=== PATIENT | female | born 1945 | race Caucasian/White ===

== ENCOUNTER → 2016-08-07 | Outpatient (CLI) | payer OTHER ==
[~2016-08-07] MED LIST: /LANS30GR; /LANS30GR OR; /WARF25TA OR; /WARF5TA OR; ACTI300C; ACTI300C OR; ALEV1TAB PO; ALEV220C2 PO; ALLE25CA OR; ALPR0.25 PO; AMBI5TAB; AMLO5TAB2 PO; ASPI1TAB PO; ASPI325T; ASPI81TA45 OR; ATOR1TAB21 PO; ATOR40TA PO; AVEL1TAB PO; BENZ100C5 PO; BUDE150T PO; BUPR300T34 PO; CALC600T7 PO; CALCCHW12 OR; CODE30TA PO; CODEINE PO; CYMB1CAP4 PO; CYMB1CAP5 PO; CYMB60CA3 PO; FLORAGEN PO; GABA300C2 PO; GLUC500T3 OR; IPRASOL4 NEB; LEVA500T; LIDO5DIS TOP; LIDOCAINE TOP; LIPI20TA OR; LIPI20TA PO; LISI10TA4 OR; LYRI75CA; LYRI75CA OR; MIRALEX OR; NAPR250T2 PO; NAPR250T45 PO; NYST100024 TOP; OXYC10TA56 OR; OXYC5CAP4; PERC5TAB8 OR; PREG50CA; PREG50CA OR; PREV30CA11 PO; PROVASTATIN; SLEE1TAB PO; SOMA350T OR; TRAM50TA2; TRAM50TA2 OR; TRAM50TA2 PO; URSO300C3 PO; VIT D 2000 PO; VITA200038 PO; VITA500T PO; VITAMIN D50000 UNT OR; XANA0.25 PO; XANA0.5T OR; ZANAX PO; ZITHTAB PO
== END ==
LOC: M PAIN 14:20
PROVIDERS: ATTEND Anesthesiology
DX: Z53.29 Procedure and treatment not carried out because of patient's decision for other reasons (principal)

== ENCOUNTER → 2016-08-29 | Outpatient (CLI) | payer OTHER ==
--- NOTE | 2016-08-31 23:49 | ECWPNPC ---
PATIENT NAME: ADALBERTO BOND : 1945 GENDER: FEMALE VISIT DATE: 08/29/2016 DISCHARGE DATE: 08/29/16 1331 VISIT LOCKED DATE TIME: PHYSICIAN: CATALINA DAN RESOURCE: CATALINA DAN REASON FOR APPOINTMENT 1. BACK HISTORY OF PRESENT ILLNESS HISTORY OF PRESENT ILLNESS: PAIN THE PATIENT DESCRIBES THE PAIN... FALL RISK SCREENING: SCREENING :NO FALLS IN THE PAST YEAR GENERAL: 71 YEAR OLD FEMALE PATIENT WITH HISTORY OF CHRONIC BACK PAIN. PATIENT DESCRIBES THE PAIN ACHING, BURNING, SHARP, STABBING, TENDER, THROBBING, SORE, AND HAVING IT ALL THE TIME WITH A PAIN SCORE OF 5/10 ON TODAY'S VISIT. 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 PATIENT WAS TAKING THE LUGGAGE OUT OF THE TRUNK OF A VEHICLE WHEN SHE HEARD A POP AND INJURED HER BACK. PATIENT REPORTS THAT SHE HAS NOT HAD ANY SURGERIES ON HER BACK. PATIENT STATES THAT SHE HAS TRIED PHYSICAL THERAPY IN THE PAST AND THE PAIN WAS WORST WHEN SHE WAS TAKING PT. PATIENT REPORTS CURRENT MEDICATION REGIMEN HELP HER TO SLEEP AT NIGHT. PAIN IS INCREASED WITH ANY TYPE OF ACTIVITY INCLUDING STANDING, WALKING, BENDING, AND LIFTING OBJECTS. PATIENT DENIES UNEXPLAINABLE WEIGHT LOSS, FEVER, CHILLS, NEW CHANGES ON HER URINARY OR BOWEL CONTROL. CURRENT MEDICATIONS TAKING CYMBALTA 60 MG _ 1 TABLET PO ONCE DAILY TAKING CODEINE SULFATE 15 MG TABLET 1 TABLET NEEDED ORALLY CODE D CHRONIC PAIN EVERY 6 HRS PRN FOR PAIN MDD2 TAKING TIZANIDINE HCL 2 MG TABLET 1 TO 2 TABLET NEEDED ORALLY BEFORE BEDTIME FOR SPASMS AND PAIN TAKING PREVACID 30 MG CAPSULE DELAYED RELEASE 1 CAPSULE ORALLY ONCE A DAY TAKING URSODIOL 300 MG CAPSULE 1 TAB(S) ORALLY BID TAKING ALBUTEROL-IPRATROPIUM 2.5-0.5 MG/3ML SOLUTION 3 ML NEBULIZER FOUR TIMES A DAY NEEDED TAKING ALEVE PM 220-25 MG TABLET 1 TAB(S) ORALLY QHS NEEDED TAKING ALPRAZOLAM 0.25 MG TABLET 1 TABLET ORALLY TWICE DAILY NEEDED TAKING ASPIR-81 81 MG TABLET DELAYED RELEASE 1 TABLET ORALLY ONCE A DAY TAKING ATORVASTATIN CALCIUM 20 MG TABLET 1 TABLET ORALLY 3 TIMES A WEEK TAKING BUPROPION HCL (XL) 300 MG TABLET EXTENDED RELEASE 24 HOUR 1 TABLET IN THE MORNING ORALLY ONCE A DAY TAKING CALCIUM + D 600-200 MG-UNIT TABLET 1 TABLET WITH FOOD ORALLY BID TAKING NYSTATIN POWDER POWDER NEEDED TAKING VITAMIN B-12 1000 MCG 1 GUMMY BEAR ORALLY ONCE A DAY TAKING NORVASC 5 MG TABLET 1 TABLET ORALLY ONCE A DAY DISCONTINUED VALIUM 10 MG TABLET 1 ORALLY 1TAB 1HR PRE PROC. MDD1 MEDICATION LIST REVIEWED AND RECONCILED WITH THE PATIENT PAST MEDICAL HISTORY PRIMARY BILIARY CIRRHOSIS STROKE CORONARY ARTERY DISEASE HIGH BLOOD PRESSURE ALLERGIES PENICILLIN (FOR ALLERGIES USE ONLY): ANAPHYLAXIS VIOXX (FOR ALLERGY USE ONLY): ANGIOEDEMA LYRIC INHIBITOR (FOR ALLERGIES USE ONLY): ANAPHYLAXIS SURGICAL HISTORY RIGHT KNEE REPLACEMENT 09/2009 LEFT KNEE REPLACEMENT 01/2010 FAMILY HISTORY NO FAMILY HISTORY DOCUMENTED. SOCIAL HISTORY GENERAL: PAIN CLINIC PFS, CLERGY, PUBLIC HEALTH REFERRALS CLERGY REFERRAL NEEDED?NO WAS THE PROVIDER NOTIFIED OF ANY PERTINENT INFO?NO PFS REFERRAL NEEDED?NO PUBLIC HEALTH REFERRAL NEEDED?NO PATIENT: ____. HOSPITALIZATION/MAJOR DIAGNOSTIC PROCEDURE PNEUMONIA 06/2015 REVIEW OF SYSTEMS CONSTITUTIONAL: ANY CHANGE IN YOUR MEDICAL CONDITION? NO . CHILLS NO . FEVER NO . INFECTION: DO YOU HAVE NEW INFECTIONS? YES, HAD A RESPIRATORY INFECTION RECENTLY, JUST FINISHED 10M DAYS OF ANTIBIOTICS. . DO YOU HAVE HISTORY OF MRSA? NO . MUSCULOSKELETAL: ANY NEW PATTERNS OF PAIN OR NUMBNESS? NO . GASTROENTEROLOGY: ANY NEW CHANGE IN BOWEL CONTROL? NO . GENITOURINARY: ANY NEW CHANGE IN BLADDER CONTROL? NO . IS THERE A CHANCE YOU COULD BE ? NO . HEMATOLOGY/LYMPH: DO YOU TAKE ANY BLOOD THINNERS? (FOR EXAMPLE- COUMADIN, PLAVIX, AGGRENOX, PLATEL, PRADAXA, OR XARELTO) NO . WHEN WAS YOUR LAST DOSE? DATE: TIME: . NEUROLOGY: HAVE YOU FALLEN IN THE PAST 6 MONTHS? NO . ANY NEW EXTREMITY NUMBNESS OR WEAKNESS? NO . CARDIOLOGY: DO YOU HAVE A PACEMAKER OR DEFIBRILLATOR? NO . RESPIRATORY: HAVE YOU BEEN SICK IN THE PAST WEEK? NO . FEVER NO . FLU LIKE SYMPTOMS? NO . COUGH NO . INTEGUMENTARY: DO YOU HAVE ANY RASHES OR OPEN SORES? NO . ALLERGIC/IMMUNO: ARE YOU ALLERGIC TO SHELLFISH OR IV DYE? NO . ANY NEW ALLERGIES? NO . PSYCHIATRIC: DO YOU HAVE THOUGHTS OF HURTING YOURSELF OR SOMEONE ELSE? NO . ARE YOU ABUSED, NEGLECTED, OR IN AN UNSAFE ENVIRONMENT? NO . ENDOCRINOLOGY: ARE YOU DIABETIC? NO . OTHER: DO YOU NEED ANY PRESCRIPTIONS? NO . IF YES, PLEASE LIST: ____ . ANY NEW PROBLEMS WITH YOUR MEDICATIONS? NO . WHEN DID YOU LAST EAT? ____ . WHEN DID YOU LAST DRINK? ____ . WHAT DID YOU LAST DRINK? ____ . NAME OF PERSON DRIVING YOU HOME? ____ . DO YOU HAVE ANY OTHER QUESTIONS OR CONCERNS NO . REVIEWED BY: PROVIDER: CATALINA DAN MD . VITAL SIGNS WT 194.4 LBS, HT 65 IN, BMI 32.35 INDEX, BP 140/80 MM HG, HR 68 /MIN, RR 68 /MIN, TEMP 98.9 F, OXYGEN SAT % 96%, NA INITIALS SC12:47, REVIEWED BY: CM. EXAMINATION GENERAL: PATIENT IS ALERT O X 3 AND COOPERATIVE. PATIENT AMBULATES WITH A LIMP ON THE RIGHT LEG. PATIENT HAS TENDERNESS IN THE LUMBAR PARASPINAL MUSCLE GROUP ESPECIALLY TOWARDS ON THE RIGHT SIDE. PATIENT'S LEFT LEG IS WEAKER AT FLEXION AND EXTENSION COMPARED TO THE RIGHT LEG. MRI OF THE LUMBAR SPINE DONE ON MRI OF THE LUMBOSACRAL SPINE DONE ON 09/11/2014 SHOWS FACET ARTHROPATHY CHANGES SPINAL STENOSIS, DISC BULGES, AND DISC DEGENERATION. ASSESSMENTS SPONDYLOSIS WITHOUT MYELOPATHY OR RADICULOPATHY, LUMBAR REGION - M47.816 (PRIMARY) SPONDYLOSIS WITHOUT MYELOPATHY OR RADICULOPATHY, LUMBOSACRAL REGION - M47.817 SPINAL STENOSIS, LUMBAR REGION - M48.06 TREATMENT SPONDYLOSIS WITHOUT MYELOPATHY OR RADICULOPATHY, LUMBAR REGION START LIDOCAINE PATCH, 5 %, 2 PATCHES DIRECTED, EXTERNALLY AT BACK, BEFORE BEDTIME, 30 DAY(S), 60, REFILLS 2 NOTES: WE DISCUSSED SEVERAL ISSUES WITH MS. BOND'S PAIN MANAGEMENT CASE. AT THIS TIME THE PATIENT WILL RECEIVE REFILLS OF CYMBALTA, CODEINE, TIZANIDINE, AND PATIENT WILL START ON LIDOCAINE PATCH TODAY. PATIENT IS TAKING CYMBALTA AND USING LIDOCAINE PATCH FOR NEUROPATHIC PAIN, TAKING CODEINE FOR SOMATIC PAIN AND TAKING TIZANIDINE FOR SPASTICITY. PATIENT REPORTS OF USING MEDICATION FOR PAIN MANAGEMENT AND DENIES ABUSING AND ILLEGALLY USING MEDICATIONS. PATIENT TO FOLLOW UP WITH ME IN 10 WEEKS. INSTRUCTIONS WERE GIVEN, QUESTIONS WERE ANSWERED, PATIENT REPORTS UNDERSTANDING AND AGREES WITH THE PLAN. I, ELVIA SCHULZ, DOCUMENTED THE ABOVE INFORMATION ACTING A SCRIBE FOR DR. DAN. I HAVE REVIEWED THE ABOVE DOCUMENT, WRITTEN BY ELVIA SCHULZ SCRIBE AND I VERIFY THAT IT IS ACCURATE. OTHERS REFILL CYMBALTA _, 60 MG, 1 TABLET, PO, ONCE DAILY FOR PAIN, 30 DAY(S), 30, REFILLS 2 REFILL CODEINE SULFATE TABLET, 15 MG, 1 TABLET NEEDED, ORALLY CODE D CHRONIC PAIN, EVERY 6 HRS PRN FOR PAIN MDD2, 90 DAYS, 120, REFILLS 0 REFILL TIZANIDINE HCL TABLET, 2 MG, 1 TO 2 TABLET NEEDED, ORALLY, BEFORE BEDTIME FOR SPASMS AND PAIN, 30 DAY(S), 60, REFILLS 2 PROCEDURES PN WORKMANS' COMP OPINION IN YOUR OPINION, WAS THE INCIDENT THAT THE PATIENT DESCRIBED THE COMPETENT MEDICAL CAUSE OF THIS INJURY/ILLNESS? YES ARE THE PATIENT'S COMPLAINTS CONSISTENT WITH HIS/HER HISTORY OF THE INJURY/ILLNESS? YES IS THE PATIENT'S HISTORY OF THE INJURY/ILLNESS CONSISTENT WITH YOUR OBJECTIVE FINDING? YES WHAT IS THE PERCENTAGE OF TEMPORARY IMPAIRMENT? MODERATE TO MARKED = 66.7% IS THE PATIENT WORKING? NO DOCTOR ON SITE: CATALINA CASAS MD PROCEDURE CODES FA211 ESTABILISHED PATIENT [facility] FACILITY CHARGE G8730 PAIN ASSESS POS TOOL F/U PLAN DOC G8427 DOC MEDS VERIFIED W/PT OR RE DISPOSITION & COMMUNICATION FOLLOW UP 10 WEEKS ELECTRONICALLY SIGNED BY CATALINA DAN MD ON 08/31/2016 AT 09:57 PM EDT DISCLAIMER : THIS IS A VISIT SUMMARY EXTRACTED FROM THE [employer] CHART. IT IS NOT A COPY OF THE [employer] PROGRESS NOTE. MTDD
== END | disposition home or self-care (01) ==
LOC: M PAIN 12:40
PROVIDERS: ATTEND Anesthesiology
DX: Z09 Encounter for follow-up examination after completed treatment for conditions other than malignant neoplasm (principal); G89.29 Other chronic pain; M47.816 Spondylosis without myelopathy or radiculopathy, lumbar region; M47.817 Spondylosis without myelopathy or radiculopathy, lumbosacral region; M48.06 Spinal stenosis, lumbar region; I10 Essential (primary) hypertension; I25.10 Atherosclerotic heart disease of native coronary artery without angina pectoris; K74.3 Primary biliary cirrhosis; Z86.73 Personal history of transient ischemic attack (TIA), and cerebral infarction without residual deficits; Z79.899 Other long term (current) drug therapy; Z79.82 Long term (current) use of aspirin; Z88.0 Allergy status to penicillin; Z88.8 Allergy status to other drugs, medicaments and biological substances

== ENCOUNTER → 2016-11-24 | Outpatient (REF) | payer MEDICARE ==
[2016-11-24 18:49] LABS: IMMUNOGLOBULIN G 1030 MG/DL (681-1648); IMMUNOGLOBULIN M 154 MG/DL (40-230)
[2016-11-26 13:16] LABS: ALBUMIN 3.79 GM/DL (3.29-5.55); ALBUMIN % 54.2 % (55.8-66.1)
== END ==
LOC: M LAB REF 13:22
PROVIDERS: ATTEND Internal Medicine
DX: D47.2 Monoclonal gammopathy (principal)

== ENCOUNTER → 2016-12-26 | Outpatient (CLI) | payer OTHER ==
[~2016-12-26] MED LIST changes: -ATOR40TA PO; +ATOR40TA75 PO; -AVEL1TAB PO; +AVEL1TAB3 PO; -NAPR250T2 PO; +NAPR250T4 PO; -NYST100024 TOP; +NYST1POW9 TOP; +PREV1CAP PO; -PREV30CA11 PO
--- NOTE | 2017-01-13 00:33 | ECWPNPC ---
PATIENT NAME: ADALBERTO BOND : 1945 GENDER: FEMALE VISIT DATE: 12/26/2016 DISCHARGE DATE: 12/26/16 1146 VISIT LOCKED DATE TIME: PHYSICIAN: CATALINA DAN RESOURCE: CATALINA DAN REASON FOR APPOINTMENT 1. W/C BACK HISTORY OF PRESENT ILLNESS HISTORY OF PRESENT ILLNESS: PAIN THE PATIENT DESCRIBES THE PAIN... 71 YEAR OLD FEMALE PATIENT WITH HISTORY OF CHRONIC BACK PAIN. PATIENT DESCRIBES THE PAIN ACHING, BURNING, SHARP, STABBING, TENDER, THROBBING, SORE, AND HAVING IT ALL THE TIME WITH A PAIN SCORE OF 6/10 ON TODAY'S VISIT. PATIENT WAS INJURED IN A WORK RELATED INJURY ON 01/15/2000 WORKING FOR [employer] A [employer] FOR [employer]ING. PATIENT WAS TAKING THE LUGGAGE OUT OF THE TRUNK OF A VEHICLE WHEN SHE HEARD A POP AND INJURED HER BACK. PATIENT REPORTS THAT SHE HAS NOT HAD ANY SURGERIES ON HER BACK. PATIENT STATES THAT SHE HAS TRIED PHYSICAL THERAPY IN THE PAST AND THE PAIN WAS WORST WHEN SHE WAS TAKING PT. PATIENT REPORTS CURRENT MEDICATION REGIMEN HELP HER TO SLEEP AT NIGHT. PAIN IS INCREASED WITH ANY TYPE OF ACTIVITY INCLUDING STANDING, WALKING, BENDING, AND LIFTING OBJECTS. PATIENT DENIES UNEXPLAINABLE WEIGHT LOSS, FEVER, CHILLS, NEW CHANGES ON HER URINARY OR BOWEL CONTROL. FALL RISK SCREENING: SCREENING :NO FALLS IN THE PAST YEAR CURRENT MEDICATIONS TAKING PREVACID 30 MG CAPSULE DELAYED RELEASE 1 CAPSULE ORALLY ONCE A DAY TAKING URSODIOL 300 MG CAPSULE 1 TAB(S) ORALLY BID TAKING ALBUTEROL-IPRATROPIUM 2.5-0.5 MG/3ML SOLUTION 3 ML NEBULIZER FOUR TIMES A DAY NEEDED TAKING ALEVE PM 220-25 MG TABLET 1 TAB(S) ORALLY QHS NEEDED TAKING ALPRAZOLAM 0.25 MG TABLET 1 TABLET ORALLY TWICE DAILY NEEDED TAKING ASPIR-81 81 MG TABLET DELAYED RELEASE 1 TABLET ORALLY ONCE A DAY TAKING ATORVASTATIN CALCIUM 20 MG TABLET 1 TABLET ORALLY 3 TIMES A WEEK TAKING BUPROPION HCL ER (XL) 300 MG TABLET EXTENDED RELEASE 24 HOUR 1 TABLET IN THE MORNING ORALLY ONCE A DAY TAKING CALCIUM + D 600-200 MG-UNIT TABLET 1 TABLET WITH FOOD ORALLY BID TAKING NYSTATIN POWDER POWDER NEEDED TAKING VITAMIN B-12 1000 MCG 1 GUMMY BEAR ORALLY ONCE A DAY TAKING NORVASC 5 MG TABLET 1 TABLET ORALLY ONCE A DAY TAKING CYMBALTA 60 MG _ 1 TABLET PO ONCE DAILY FOR PAIN TAKING CODEINE SULFATE 15 MG TABLET 1 TABLET NEEDED ORALLY CODE D CHRONIC PAIN EVERY 6 HRS PRN FOR PAIN MDD2 TAKING TIZANIDINE HCL 2 MG TABLET 1 TO 2 TABLET NEEDED ORALLY BEFORE BEDTIME FOR SPASMS AND PAIN TAKING LIDOCAINE 5 % PATCH 2 PATCHES DIRECTED EXTERNALLY AT BACK BEFORE BEDTIME MEDICATION LIST REVIEWED AND RECONCILED WITH THE PATIENT PAST MEDICAL HISTORY PRIMARY BILIARY CIRRHOSIS STROKE CORONARY ARTERY DISEASE HIGH BLOOD PRESSURE ALLERGIES PENICILLIN (FOR ALLERGIES USE ONLY): ANAPHYLAXIS VIOXX (FOR ALLERGY USE ONLY): ANGIOEDEMA LYRIC INHIBITOR (FOR ALLERGIES USE ONLY): ANAPHYLAXIS REVIEW OF SYSTEMS REVIEWED BY: PROVIDER: CATALINA DAN MD . CONSTITUTIONAL: ANY CHANGE IN YOUR MEDICAL CONDITION? NO . CHILLS NO . FEVER NO . INFECTION: DO YOU HAVE NEW INFECTIONS? NO . DO YOU HAVE HISTORY OF MRSA? NO . MUSCULOSKELETAL: ANY NEW PATTERNS OF PAIN OR NUMBNESS? NO . GASTROENTEROLOGY: ANY NEW CHANGE IN BOWEL CONTROL? NO . GENITOURINARY: ANY NEW CHANGE IN BLADDER CONTROL? NO . IS THERE A CHANCE YOU COULD BE ? NO . HEMATOLOGY/LYMPH: DO YOU TAKE ANY BLOOD THINNERS? (FOR EXAMPLE- COUMADIN, PLAVIX, AGGRENOX, PLATEL, PRADAXA, OR XARELTO) NO . WHEN WAS YOUR LAST DOSE? DATE: TIME: . NEUROLOGY: HAVE YOU FALLEN IN THE PAST 6 MONTHS? NO . ANY NEW EXTREMITY NUMBNESS OR WEAKNESS? NO . CARDIOLOGY: DO YOU HAVE A PACEMAKER OR DEFIBRILLATOR? NO . RESPIRATORY: HAVE YOU BEEN SICK IN THE PAST WEEK? NO . FEVER NO . FLU LIKE SYMPTOMS? NO . COUGH NO . INTEGUMENTARY: DO YOU HAVE ANY RASHES OR OPEN SORES? NO . ALLERGIC/IMMUNO: ARE YOU ALLERGIC TO SHELLFISH OR IV DYE? NO . ANY NEW ALLERGIES? NO . PSYCHIATRIC: DO YOU HAVE THOUGHTS OF HURTING YOURSELF OR SOMEONE ELSE? NO . ARE YOU ABUSED, NEGLECTED, OR IN AN UNSAFE ENVIRONMENT? NO . ENDOCRINOLOGY: ARE YOU DIABETIC? NO . OTHER: DO YOU NEED ANY PRESCRIPTIONS? YES . IF YES, PLEASE LIST: CODIENE, CYMBALTA, PREVACID . ANY NEW PROBLEMS WITH YOUR MEDICATIONS? NO . WHEN DID YOU LAST EAT? ____ . WHEN DID YOU LAST DRINK? ____ . WHAT DID YOU LAST DRINK? ____ . NAME OF PERSON DRIVING YOU HOME? ____ . DO YOU HAVE ANY OTHER QUESTIONS OR CONCERNS NO . VITAL SIGNS WT 200.4 LBS, HT 65 IN, BMI 33.34 INDEX, BP 161/81 MM HG, HR 75 /MIN, RR 18 /MIN, TEMP 97.9 F, OXYGEN SAT % 95%, NA INITIALS SC 11:38, REVIEWED BY: NL. EXAMINATION : PATIENT IS ALERT O X 3 AND COOPERATIVE. PATIENT AMBULATES WITH A LIMP ON THE RIGHT LEG. PATIENT HAS TENDERNESS IN THE LUMBAR PARASPINAL MUSCLE GROUP ESPECIALLY TOWARDS ON THE RIGHT SIDE. PATIENT'S LEFT LEG IS WEAKER AT FLEXION AND EXTENSION COMPARED TO THE RIGHT LEG. MRI OF THE LUMBAR SPINE DONE ON MRI OF THE LUMBOSACRAL SPINE DONE ON 09/11/2014 SHOWS FACET ARTHROPATHY CHANGES SPINAL STENOSIS, DISC BULGES, AND DISC DEGENERATION. ASSESSMENTS SACROILIITIS, NOT ELSEWHERE CLASSIFIED - M46.1 (PRIMARY) SPONDYLOSIS WITHOUT MYELOPATHY OR RADICULOPATHY, LUMBAR REGION - M47.816 SPONDYLOSIS WITHOUT MYELOPATHY OR RADICULOPATHY, LUMBOSACRAL REGION - M47.817 TREATMENT SACROILIITIS, NOT ELSEWHERE CLASSIFIED NOTES: WE DISCUSSED SEVERAL ISSUES WITH MRS. BOND'S PAIN MANAGEMENT CASE. AT THIS TIME THE PATIENT WILL CONTINUE WITH THE SAME MEDICATION REGIME BEFORE. PATIENT IS USING LIDOCAINE AND CODEINE SULPHATE FOR THE SOMATIC PAIN, CYMBALTA FOR THE NEUROPATHIC PAIN, AND TIZANIDINE FOR THE MUSCLE SPASMS. PATIENT DENIES ABUSE OF ANY MEDICATION, DENIES USE OF ILLEGAL SUBSTANCES, AND STATES SHE IS ONLY USING THE MEDICATION FOR PAIN MANAGEMENT. PATIENT WILL PERFORM A URINE TOXICOLOGY REPORT TODAY. PATIENT BROUGHT ALL HER PAIN MEDICATIONS TO TODAY'S VISIT IN THEIR ORIGINAL BOTTLES. DUE TO THE PAIN IN THE SACROILIAC JOINT AREA I WOULD LIKE TO PROCEED WITH A SACROILIAC JOINT INJECTION. WE DISCUSSED THE RISKS, BENENFITS AND ALTNERATIVES OF THE INJECTION AND THE PATIENT WOULD LIKE TO PROCEED. INSTRUCTIONS WERE GIVEN, QUESTIONS WERE ANSWERED, PATIENT REPORTS UNDERSTANDING AND AGREES WITH THE PLAN. I, JESS HERNANDEZ, DOCUMENTED THE ABOVE INFORMATION ACTING A SCRIBE FOR DR. DAN. I HAVE REVIEWED THE ABOVE DOCUMENT, WRITTEN BY JESS CHRISTIANSON AND I VERIFY THAT IT IS ACCURATE. SPONDYLOSIS WITHOUT MYELOPATHY OR RADICULOPATHY, LUMBAR REGION REFILL LIDOCAINE PATCH, 5 %, 2 PATCHES DIRECTED, EXTERNALLY AT BACK, BEFORE BEDTIME, 30 DAY(S), 60, REFILLS 2 OTHERS REFILL CODEINE SULFATE TABLET, 15 MG, 1 TABLET NEEDED, ORALLY CODE D CHRONIC PAIN, EVERY 6 HRS PRN FOR PAIN MDD2, 90 DAYS, 120, REFILLS 0 REFILL CYMBALTA _, 60 MG, 1 TABLET, PO, ONCE DAILY FOR PAIN, 30 DAY(S), 30, REFILLS 2 REFILL TIZANIDINE HCL TABLET, 2 MG, 1 TO 2 TABLET NEEDED, ORALLY, BEFORE BEDTIME FOR SPASMS AND PAIN, 30 DAY(S), 60, REFILLS 2 PROCEDURES PN WORKMANS' COMP OPINION IN YOUR OPINION, WAS THE INCIDENT THAT THE PATIENT DESCRIBED THE COMPETENT MEDICAL CAUSE OF THIS INJURY/ILLNESS? YES ARE THE PATIENT'S COMPLAINTS CONSISTENT WITH HIS/HER HISTORY OF THE INJURY/ILLNESS? YES IS THE PATIENT'S HISTORY OF THE INJURY/ILLNESS CONSISTENT WITH YOUR OBJECTIVE FINDING? YES WHAT IS THE PERCENTAGE OF TEMPORARY IMPAIRMENT? MODERATE TO MARKED = 66.7% IS THE PATIENT WORKING? NO DOCTOR ON SITE: CATALINA CASAS MD PROCEDURE CODES FA211 ESTABILISHED PATIENT [facility] FACILITY CHARGE G8427 DOC MEDS VERIFIED W/PT OR RE G8730 PAIN ASSESS POS TOOL F/U PLAN DOC DISPOSITION & COMMUNICATION FOLLOW UP [facility] AFTER APPROVAL ELECTRONICALLY SIGNED BY CATALINA DAN MD ON 01/12/2017 AT 08:04 PM EDT DISCLAIMER : THIS IS A VISIT SUMMARY EXTRACTED FROM THE [employer] CHART. IT IS NOT A COPY OF THE [employer] PROGRESS NOTE. LINA
== END ==
LOC: M PAIN 11:20
PROVIDERS: ATTEND Anesthesiology
DX: G89.29 Other chronic pain (principal); M46.1 Sacroiliitis, not elsewhere classified; M47.816 Spondylosis without myelopathy or radiculopathy, lumbar region; M47.817 Spondylosis without myelopathy or radiculopathy, lumbosacral region; I10 Essential (primary) hypertension; I25.2 Old myocardial infarction; Z88.0 Allergy status to penicillin; Z88.8 Allergy status to other drugs, medicaments and biological substances; Z79.82 Long term (current) use of aspirin; Z79.891 Long term (current) use of opiate analgesic; Z79.899 Other long term (current) drug therapy

== ENCOUNTER → 2017-02-18 | Outpatient (CLI) | payer MEDICARE ==
--- NOTE | 2017-02-18 14:54 | REP ---
CT study of the chest without contrast: History: Followup right upper lobe infiltrate seen on previous chest CT at [facility] January 09, 2016. August 06, [address] is also reviewed. CT findings: Preliminary digital retail merchandising specialist radiograph shows a zone of mild linear fibrosis in the right perihilar region. Axial CT images demonstrate this area as well. This is much less prominent than on the August 06, 2015 study and essentially unchanged from the January 09, 2016 study. No acute infiltrate is visible today. No significant pulmonary nodule is seen. There are some mild linear fibrotic changes in the right lower lobe which are stable. No pleural or pericardial effusion is seen. Minimal vascular calcification is noted. A persistent left superior vena cava is noted incidentally unchanged from prior studies. No bony destructive lesion is seen. Impression: 1. Bilateral stable linear fibrotic changes. 2. Otherwise no active cardiopulmonary disease. 3. Persistent left superior vena cava noted incidentally. Signed by Ton Argueta MD 02/18/2017 05:24 P
== END ==
LOC: M RAD 13:33
PROVIDERS: ATTEND Internal Medicine
DX: R91.8 Other nonspecific abnormal finding of lung field (principal)

== ENCOUNTER → 2017-05-15 | Outpatient (CLI) | payer OTHER | LOC: M PAIN 14:15 | DX: M46.1 Sacroiliitis, not elsewhere classified (principal); M47.816 Spondylosis without myelopathy or radiculopathy, lumbar region; M47.817 Spondylosis without myelopathy or radiculopathy, lumbosacral region; I10 Essential (primary) hypertension; Z88.0 Allergy status to penicillin; Z88.6 Allergy status to analgesic agent; Z88.8 Allergy status to other drugs, medicaments and biological substances; Z79.82 Long term (current) use of aspirin; Z79.891 Long term (current) use of opiate analgesic; Z79.899 Other long term (current) drug therapy; Z86.73 Personal history of transient ischemic attack (TIA), and cerebral infarction without residual deficits | CPT/HCPCS: G0463 ==

== ENCOUNTER → 2017-05-27 | Outpatient (REF) | payer MEDICARE ==
[2017-05-27 13:23] LABS: TOTAL PROTEIN 7.5 GM/DL (6.4-8.2)
[2017-05-28 10:34] LABS: ALBUMIN 3.92 GM/DL (3.29-5.55); ALBUMIN % 52.3 % (55.8-66.1); GAMMA GLOBULIN % 16.9 % (11.1-18.8)
== END ==
LOC: M LAB REF 12:42
DX: D47.2 Monoclonal gammopathy (principal)
CPT/HCPCS: 84165

== ENCOUNTER → 2017-06-05 | Outpatient (CLI) | payer OTHER | LOC: M PAIN 13:00 | DX: G89.29 Other chronic pain (principal); M46.1 Sacroiliitis, not elsewhere classified; M53.3 Sacrococcygeal disorders, not elsewhere classified; I25.10 Atherosclerotic heart disease of native coronary artery without angina pectoris; K74.5 Biliary cirrhosis, unspecified; Z86.73 Personal history of transient ischemic attack (TIA), and cerebral infarction without residual deficits; R03.0 Elevated blood-pressure reading, without diagnosis of hypertension; Z88.0 Allergy status to penicillin; Z88.6 Allergy status to analgesic agent; Z88.8 Allergy status to other drugs, medicaments and biological substances; Z79.82 Long term (current) use of aspirin; Z79.899 Other long term (current) drug therapy | CPT/HCPCS: G0463 ==

== ENCOUNTER → 2017-07-20 | Outpatient (CLI) | payer OTHER | LOC: M PAIN 10:00 | DX: M46.1 Sacroiliitis, not elsewhere classified (principal); M53.3 Sacrococcygeal disorders, not elsewhere classified; M47.816 Spondylosis without myelopathy or radiculopathy, lumbar region; M47.817 Spondylosis without myelopathy or radiculopathy, lumbosacral region; I25.9 Chronic ischemic heart disease, unspecified; I10 Essential (primary) hypertension; Z79.82 Long term (current) use of aspirin; Z79.891 Long term (current) use of opiate analgesic; Z79.899 Other long term (current) drug therapy; Z88.0 Allergy status to penicillin; Z88.8 Allergy status to other drugs, medicaments and biological substances; Z86.73 Personal history of transient ischemic attack (TIA), and cerebral infarction without residual deficits | CPT/HCPCS: G0463 ==

== ENCOUNTER → 2017-09-04 | Outpatient (CLI) | payer OTHER | LOC: M PAIN 11:15 | DX: M46.1 Sacroiliitis, not elsewhere classified (principal); M53.3 Sacrococcygeal disorders, not elsewhere classified; M47.816 Spondylosis without myelopathy or radiculopathy, lumbar region; M47.817 Spondylosis without myelopathy or radiculopathy, lumbosacral region; K74.3 Primary biliary cirrhosis; I10 Essential (primary) hypertension; I25.10 Atherosclerotic heart disease of native coronary artery without angina pectoris; Z79.82 Long term (current) use of aspirin; Z79.891 Long term (current) use of opiate analgesic; Z79.899 Other long term (current) drug therapy; Z88.0 Allergy status to penicillin; Z88.6 Allergy status to analgesic agent; Z88.8 Allergy status to other drugs, medicaments and biological substances; Z86.73 Personal history of transient ischemic attack (TIA), and cerebral infarction without residual deficits | CPT/HCPCS: G0463 ==

== ENCOUNTER → 2017-11-04 | Outpatient (CLI) | payer OTHER | LOC: M PAIN 13:15 | DX: M46.1 Sacroiliitis, not elsewhere classified (principal); M47.816 Spondylosis without myelopathy or radiculopathy, lumbar region; M47.817 Spondylosis without myelopathy or radiculopathy, lumbosacral region; K74.3 Primary biliary cirrhosis; I10 Essential (primary) hypertension; I25.10 Atherosclerotic heart disease of native coronary artery without angina pectoris; Z79.891 Long term (current) use of opiate analgesic; Z79.82 Long term (current) use of aspirin; Z79.51 Long term (current) use of inhaled steroids; Z79.899 Other long term (current) drug therapy; Z88.0 Allergy status to penicillin; Z88.6 Allergy status to analgesic agent; Z88.8 Allergy status to other drugs, medicaments and biological substances; Z86.73 Personal history of transient ischemic attack (TIA), and cerebral infarction without residual deficits; Z96.653 Presence of artificial knee joint, bilateral | CPT/HCPCS: G0463 ==

== ENCOUNTER → 2017-12-08 | Outpatient (REF) | payer MEDICARE ==
[2017-12-08 14:05] LABS: IMMUNOGLOBULIN G 1100 MG/DL (681-1648); IMMUNOGLOBULIN M 180 MG/DL (40-230); TOTAL PROTEIN 7.2 GM/DL (6.4-8.2)
[2017-12-10 13:57] LABS: ALBUMIN % 53.1 % (55.8-66.1); ALPHA-1-GLOBULIN % 4.9 % (2.9-4.9)
[2017-12-10 13:58] LABS: ALBUMIN 3.82 GM/DL (3.29-5.55); ALPHA-1-GLOBULINS 0.35 GM/DL (0.17-0.41); ALPHA-2-GLOBULINS 0.85 GM/DL (0.42-0.99); ALPHA-2-GLOBULINS % 11.8 % (7.1-11.8); BETA-1-GLOBULINS % 8.3 % (4.7-7.2); BETA-2-GLOBULINS % 5.6 % (3.2-6.5); GAMMA GLOBULIN % 16.3 % (11.1-18.8); GAMMA GLOBULINS 1.17 GM/DL (0.65-1.58)
== END ==
LOC: M LAB REF 13:31
DX: D47.2 Monoclonal gammopathy (principal)
CPT/HCPCS: 84165

== ENCOUNTER → 2017-12-24 | Outpatient (CLI) | payer MEDICARE ==
[2017-12-24 13:30] LABS: ANION GAP 6 MEQ/L (8-16); BLOOD UREA NITROGEN 20 MG/DL (7-18); CALCIUM LEVEL 9.1 MG/DL (8.8-10.2); CARBON DIOXIDE LEVEL 32 MEQ/L (21-32); CHLORIDE LEVEL 102 MEQ/L (98-107); CREATININE FOR GFR 0.82 MG/DL (0.55-1.30); GLOMERULAR FILTRATION RATE > 60.0 (>39); GLUCOSE, FASTING 99 MG/DL (70-100); POTASSIUM SERUM 4.2 MEQ/L (3.5-5.1); SODIUM LEVEL 140 MEQ/L (136-145)
== END ==
LOC: M SMT 10:56
DX: I50.32 Chronic diastolic (congestive) heart failure (principal); I25.10 Atherosclerotic heart disease of native coronary artery without angina pectoris
CPT/HCPCS: 80048

== ENCOUNTER → 2018-01-06 | Outpatient (CLI) | payer OTHER | LOC: M PAIN 09:15 | DX: M46.1 Sacroiliitis, not elsewhere classified (principal); M47.816 Spondylosis without myelopathy or radiculopathy, lumbar region; M47.817 Spondylosis without myelopathy or radiculopathy, lumbosacral region; I10 Essential (primary) hypertension; J44.9 Chronic obstructive pulmonary disease, unspecified; Z79.01 Long term (current) use of anticoagulants; Z79.82 Long term (current) use of aspirin; Z79.51 Long term (current) use of inhaled steroids; Z79.891 Long term (current) use of opiate analgesic; Z79.899 Other long term (current) drug therapy; Z88.0 Allergy status to penicillin; Z88.6 Allergy status to analgesic agent; Z88.8 Allergy status to other drugs, medicaments and biological substances; Z86.73 Personal history of transient ischemic attack (TIA), and cerebral infarction without residual deficits; Z86.79 Personal history of other diseases of the circulatory system | CPT/HCPCS: G0463 ==

== ENCOUNTER → 2018-03-18 | Outpatient (CLI) | payer OTHER | LOC: M PAIN 08:45 | DX: M46.1 Sacroiliitis, not elsewhere classified (principal); M47.816 Spondylosis without myelopathy or radiculopathy, lumbar region; M47.817 Spondylosis without myelopathy or radiculopathy, lumbosacral region; Z79.891 Long term (current) use of opiate analgesic; I10 Essential (primary) hypertension; J44.9 Chronic obstructive pulmonary disease, unspecified; Z79.01 Long term (current) use of anticoagulants; Z79.82 Long term (current) use of aspirin; Z79.51 Long term (current) use of inhaled steroids; Z79.899 Other long term (current) drug therapy; Z88.0 Allergy status to penicillin; Z88.6 Allergy status to analgesic agent; Z88.8 Allergy status to other drugs, medicaments and biological substances; Z96.653 Presence of artificial knee joint, bilateral; Z86.73 Personal history of transient ischemic attack (TIA), and cerebral infarction without residual deficits; Z86.79 Personal history of other diseases of the circulatory system | CPT/HCPCS: G0463 ==

== ENCOUNTER → 2018-05-23 | Outpatient (REF) | payer BC ==
[~2018-05-23] MED LIST changes: +BENZ-18 PO; -BENZ100C5 PO; +IPRA0.00 NEB; -IPRASOL4 NEB; -NAPR250T45 PO; +NAPR250T82 PO
== END ==
LOC: M LAB REF 09:36
PROVIDERS: ATTEND Physician Assistant
DX: J02.9 Acute pharyngitis, unspecified (principal)

== ENCOUNTER → 2018-06-08 | Outpatient (CLI) | payer MEDICARE ==
[2018-06-08 18:21] LABS: BLOOD UREA NITROGEN 13 MG/DL (7-18); CALCIUM LEVEL 8.7 MG/DL (8.8-10.2); CARBON DIOXIDE LEVEL 28 MEQ/L (21-32); CHLORIDE LEVEL 103 MEQ/L (98-107); CREATININE FOR GFR 0.79 MG/DL (0.55-1.30); GLOMERULAR FILTRATION RATE > 60.0 (>39); GLUCOSE, FASTING 85 MG/DL (70-100); HEMATOCRIT 34.1 % (36.0-47.0); MEAN CORPUSCULAR HEMOGLOBIN 26.5 pg (27.0-33.0); MEAN CORPUSCULAR HGB CONC 29.3 g/dl (32.0-36.5); MEAN CORPUSCULAR VOLUME 90.2 fl (80.0-96.0); PLATELET COUNT, AUTOMATED 385 10^3/uL (150-450); POTASSIUM SERUM 3.9 MEQ/L (3.5-5.1); RED BLOOD COUNT 3.78 10^6/uL (4.00-5.40); SODIUM LEVEL 139 MEQ/L (136-145); WHITE BLOOD COUNT 7.7 10^3/uL (4.0-10.0)
== END ==
LOC: M WUC 15:10
PROVIDERS: ATTEND Internal Medicine Cardiovascular Disease
DX: I25.709 Atherosclerosis of coronary artery bypass graft(s), unspecified, with unspecified angina pectoris (principal)

== ENCOUNTER → 2018-06-21 | Outpatient (REF) | payer MEDICARE ==
[2018-06-21 13:17] LABS: TOTAL PROTEIN 7.1 GM/DL (6.4-8.2)
[2018-06-22 10:30] LABS: ALBUMIN 3.82 GM/DL (3.29-5.55); ALBUMIN % 53.8 % (55.8-66.1); ALPHA-1-GLOBULIN % 5.6 % (2.9-4.9); ALPHA-2-GLOBULINS 0.84 GM/DL (0.42-0.99); ALPHA-2-GLOBULINS % 11.9 % (7.1-11.8); BETA-1-GLOBULINS 0.61 GM/DL (0.28-0.60); BETA-1-GLOBULINS % 8.6 % (4.7-7.2); BETA-2-GLOBULINS 0.38 GM/DL (0.19-0.55); BETA-2-GLOBULINS % 5.4 % (3.2-6.5); GAMMA GLOBULIN % 14.7 % (11.1-18.8); GAMMA GLOBULINS 1.04 GM/DL (0.65-1.58)
[2018-06-22 17:33] LABS: PERCENT SATURATION 6.7 % (13.2-45.0)
[2018-06-22 17:46] LABS: FOLATE 9.1 NG/ML
== END ==
LOC: M LAB REF 12:26
PROVIDERS: ATTEND Internal Medicine
DX: D47.2 Monoclonal gammopathy (principal); D64.9 Anemia, unspecified

== ENCOUNTER → 2018-06-24 | Outpatient (CLI) | payer OTHER ==
--- NOTE | 2018-07-13 00:36 | ECWPNPC ---
PATIENT NAME: ADALBERTO BOND : 1945 GENDER: FEMALE VISIT DATE: 06/24/2018 DISCHARGE DATE: 06/24/18 1720 VISIT LOCKED DATE TIME: PHYSICIAN: CATALINA DAN MD RESOURCE: CATALINA DAN MD REASON FOR APPOINTMENT 1. W/C LOW BACK HISTORY OF PRESENT ILLNESS HISTORY OF PRESENT ILLNESS: PAIN THE PATIENT DESCRIBES THE PAIN... 72 YEAR OLD FEMALE PATIENT WITH A HISTORY OF CHRONIC LOW BACK PAIN. THE PATIENT DESCRIBES THE PAIN ACHING, SORE, STABBING, AND CONTINUOUS WITH A PAIN SCORE OF 7-8/10 DEPENDING ON PHYSICAL ACTIVITY. 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 THE PATIENT SAYS THE PAIN STARTS IN HER LOW BACK AND RADIATES DOWN HER RIGHT LEG. THE PATIENT IS CURRENTLY USING TIZANIDINE, CYMBALTA, CODEINE, AND LIDOCAINE PATCHES TO AID IN PAIN RELIEF. THE PATIENT SAYS THE USE OF THESE MEDICATIONS HELP HER REMAIN MOBILE AND FUNCTIONAL FOR THE MOST PART. THE PATIENT RECENTLY HAD A CARDIAC STENT PLACED. PATIENT DENIES UNEXPLAINABLE WEIGHT LOSS, FEVER, CHILLS, NEW CHANGES ON HER URINARY OR BOWEL CONTROL. FALL RISK SCREENING: SCREENING :NO FALLS IN THE PAST YEAR CURRENT MEDICATIONS TAKING URSODIOL 300 MG CAPSULE 1 TAB(S) ORALLY BID TAKING ALPRAZOLAM 0.25 MG TABLET 1 TABLET ORALLY TWICE DAILY NEEDED TAKING ASPIR-81 81 MG TABLET DELAYED RELEASE 1 TABLET ORALLY ONCE A DAY TAKING ATORVASTATIN CALCIUM 40 MG TABLET 1 TABLET ORALLY 3 TIMES A WEEK TAKING BUPROPION HCL ER (XL) 300 MG TABLET EXTENDED RELEASE 24 HOUR 1 TABLET IN THE MORNING ORALLY ONCE A DAY TAKING NORVASC 5 MG TABLET 1 TABLET ORALLY ONCE A DAY TAKING PREVACID 30 MG CAPSULE DELAYED RELEASE 1 CAPSULE ORALLY ONCE A DAY TAKING ANORO ELLIPTA 62.5-25 MCG/INH AEROSOL POWDER BREATH ACTIVATED 1 PUFF INHALATION ONCE A DAY TAKING [id number] - TABLET ORALLY TAKING FUROSEMIDE 20 MG TABLET 1 TABLET ORALLY ONCE A DAY TAKING IBUPROFEN 200 MG TABLET 1 TABLET WITH FOOD OR MILK ORALLY BID TAKING TYLENOL EXTRA STRENGTH 500 MG TABLET 2 TABLET ORALLY BID NEEDED TAKING PLAVIX 75 MG TABLET 1 TABLET ORALLY ONCE A DAY TAKING CALCIUM + D 600-200 MG-UNIT TABLET 1 TABLET WITH FOOD ORALLY DAILY TAKING VITAMIN B-12 1000 MCG 1 GUMMY BEAR ORALLY ONCE A DAY TAKING CODEINE SULFATE 15 MG TABLET 1 TABLET NEEDED ORALLY CODE D CHRONIC PAIN EVERY 6 HRS PRN FOR PAIN MDD2 TAKING CYMBALTA 60 MG _ 1 CAP PO ONCE DAILY FOR PAIN TAKING LIDOCAINE 5 % PATCH 2 PATCHES DIRECTED EXTERNALLY AT BACK BEFORE BEDTIME TAKING TIZANIDINE HCL 2 MG TABLET 1 TO 2 TABLET NEEDED ORALLY BEFORE BEDTIME FOR SPASMS AND PAIN TAKING METOPROLOL SUCCINATE ER 50 MG TABLET EXTENDED RELEASE 24 HOUR 1 TABLET ORALLY DAILY TAKING NYSTATIN POWDER POWDER NEEDED TAKING ALBUTEROL-IPRATROPIUM 2.5-0.5 MG/3ML SOLUTION 3 ML NEBULIZER FOUR TIMES A DAY NEEDED NOT-TAKING ISOSORBIDE MONONITRATE ER 30 MG TABLET EXTENDED RELEASE 24 HOUR 1 TABLET IN THE MORNING ORALLY ONCE A DAY NOT-TAKING ALEVE PM 220-25 MG TABLET 1 TAB(S) ORALLY QHS NEEDED MEDICATION LIST REVIEWED AND RECONCILED WITH THE PATIENT PAST MEDICAL HISTORY 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 2 SON(S) - HEALTHY. SOCIAL HISTORY GENERAL: TOBACCO USE ARE YOU A:NONSMOKER ALCOHOL SCREENING DID YOU HAVE A DRINK CONTAINING ALCOHOL IN THE PAST YEAR?YES HOW OFTEN DID YOU HAVE A DRINK CONTAINING ALCOHOL IN THE PAST YEAR?MONTHLY OR LESS (1 POINT) POINTS1 INTERPRETATIONNEGATIVE CHURCH [id number] CAODAISM LANGUAGE LANGUAGES SPOKEN:[place] LEARNING BARRIERS / SPECIAL NEEDS VISION IMPAIRED?YES :CORRECTIVE LENSES READINESS TO LEARN?YES LEARNING PREFERENCES?NO SPECIAL DEVICES?NO PAIN CLINIC PFS, CLERGY, PUBLIC HEALTH REFERRALS PFS REFERRAL NEEDED?NO CLERGY REFERRAL NEEDED?NO PUBLIC HEALTH REFERRAL NEEDED?NO WAS THE PROVIDER NOTIFIED OF ANY PERTINENT INFO?NO HAS THE PATIENT BEEN EDUCATED REGARDING HIS/HER PLAN OF CARE?YES HAS THE PATIENT BEEN EDUCATED REGARDING PAIN, THE RISK FOR PAIN, THE IMPORTANCE OF EFFECTIVE PAIN MANAGEMENT, AND THE PAIN ASSESSMENT PROCESS?YES ADVANCE DIRECTIVE ADVANCE DIRECTIVE DISCUSSED WITH PATIENT:YES DECLINED REVIEWED WITH PT 03/18/18 0913 SALINA. HOSPITALIZATION/MAJOR DIAGNOSTIC PROCEDURE PNEUMONIA 06/2015 REVIEW OF SYSTEMS REVIEWED BY: PROVIDER: CATALINA DAN MD . CONSTITUTIONAL: ANY CHANGE IN YOUR MEDICAL CONDITION? YES, PNEUMONIA RESOLVED AND ANEMIC . CHILLS NO . FEVER NO . INFECTION: DO YOU HAVE NEW INFECTIONS? YES, PNEUMONIA RESOLVED . DO YOU HAVE HISTORY OF MRSA? NO . MUSCULOSKELETAL: ANY NEW PATTERNS OF PAIN OR NUMBNESS? NO . GASTROENTEROLOGY: ANY NEW CHANGE IN BOWEL CONTROL? NO . GENITOURINARY: ANY NEW CHANGE IN BLADDER CONTROL? NO . IS THERE A CHANCE YOU COULD BE ? NO . HEMATOLOGY/LYMPH: DO YOU TAKE ANY BLOOD THINNERS? (FOR EXAMPLE- COUMADIN, PLAVIX, AGGRENOX, PLATEL, PRADAXA, OR XARELTO) YES, PLAVIX . WHEN WAS YOUR LAST DOSE? DATE: TIME: . NEUROLOGY: HAVE YOU FALLEN IN THE PAST 12 MONTHS? NO . ANY NEW EXTREMITY NUMBNESS OR WEAKNESS? NO . CARDIOLOGY: DO YOU HAVE A PACEMAKER OR DEFIBRILLATOR? NO . RESPIRATORY: HAVE YOU BEEN SICK IN THE PAST WEEK? YES . FEVER NO . FLU LIKE SYMPTOMS? NO . COUGH YES, PROCUCTIVE YELLOW SPUTUM . INTEGUMENTARY: DO YOU HAVE ANY RASHES OR OPEN SORES? NO . ALLERGIC/IMMUNO: ARE YOU ALLERGIC TO IV DYE? NO . ANY NEW ALLERGIES? NO . PSYCHIATRIC: DO YOU HAVE THOUGHTS OF HURTING YOURSELF OR SOMEONE ELSE? NO . ARE YOU ABUSED, NEGLECTED, OR IN AN UNSAFE ENVIRONMENT? NO . ENDOCRINOLOGY: ARE YOU DIABETIC? NO . OTHER: DO YOU NEED ANY PRESCRIPTIONS? YES, ALL . IF YES, PLEASE LIST: ____ . ANY NEW PROBLEMS WITH YOUR MEDICATIONS? NO . WHEN DID YOU LAST EAT? ____ . WHEN DID YOU LAST DRINK? ____ . WHAT DID YOU LAST DRINK? ____ . NAME OF PERSON DRIVING YOU HOME? ____ . DO YOU HAVE ANY OTHER QUESTIONS OR CONCERNS NO . VITAL SIGNS WT 203.4 LBS, HT 65 IN, BMI 33.84 INDEX, BP 158/70 MM HG, HR 54 /MIN, RR 16 /MIN, TEMP 97.6 F, OXYGEN SAT % 96%, NA INITIALS AW 1439, REVIEWED BY: EM. EXAMINATION GENERAL EXAMINATION: PATIENT IS ALERT O X 3 AND COOPERATIVE. PATIENT IS USING A CANE TO AMBULATE. TENDERNESS IN THE LOW BACK AREA. RIGHT LEG IS WEAKER AT EXTENSION AND FLEXION. ASSESSMENTS LOW BACK PAIN - M54.5 (PRIMARY) OTHER CHRONIC PAIN - G89.29 TREATMENT LOW BACK PAIN CLINICAL NOTES: WE DISCUSSED SEVERAL ISSUES WITH MRS. BOND'S PAIN MANAGEMENT CASE. THE PATIENT WILL CONTINUE WITH THE SAME MEDICATION REGIMENT. ISTOP _[id number] WAS REVIEWED. URINE TOXICOLOGY DONE ON 09/04/2017 SHOWS CONCURRENT RESULTS. THE PATIENT WILL FOLLOW UP IN 2 MONTHS. INSTRUCTIONS WERE GIVEN, QUESTIONS WERE ANSWERED, PATIENT REPORTS UNDERSTANDING AND AGREES WITH THE PLAN. I, ANTOINE SAWANT, DOCUMENTED THE ABOVE INFORMATION ACTING A SCRIBE FOR DR. DAN. I HAVE REVIEWED THE ABOVE DOCUMENT, WRITTEN BY ANTOINE AMEZCUAIBKavya AND I VERIFY THAT IT IS ACCURATE. OTHERS REFILL TIZANIDINE HCL TABLET, 2 MG, 1 TO 2 TABLET NEEDED, ORALLY, BEFORE BEDTIME FOR SPASMS AND PAIN, 90 DAY(S), 180, REFILLS 0 REFILL LIDOCAINE PATCH, 5 %, 2 PATCHES DIRECTED, EXTERNALLY AT BACK, BEFORE BEDTIME, 90 DAY(S), 180, REFILLS 0 REFILL CYMBALTA _, 60 MG, 1 CAP, PO, ONCE DAILY FOR PAIN, 90 DAY(S), 90, REFILLS 0 REFILL CODEINE SULFATE TABLET, 15 MG, 1 TABLET NEEDED, ORALLY CODE D CHRONIC PAIN, EVERY 6 HRS PRN FOR PAIN MDD2, 90 DAYS, 120, REFILLS 0 PROCEDURES PN WORKMANS' COMP OPINION IN YOUR OPINION, WAS THE INCIDENT THAT THE PATIENT DESCRIBED THE COMPETENT MEDICAL CAUSE OF THIS INJURY/ILLNESS? YES ARE THE PATIENT'S COMPLAINTS CONSISTENT WITH HIS/HER HISTORY OF THE INJURY/ILLNESS? YES IS THE PATIENT'S HISTORY OF THE INJURY/ILLNESS CONSISTENT WITH YOUR OBJECTIVE FINDING? YES WHAT IS THE PERCENTAGE OF TEMPORARY IMPAIRMENT? MODERATE TO MARKED = 66.7% IS THE PATIENT WORKING? NO DOCTOR ON SITE: CATALINA CASAS MD PROCEDURE CODES FA211 ESTABILISHED PATIENT [facility] FACILITY CHARGE G8427 CURRENT MEDS W/DOSAGES DOCUMENTED G8730 PAIN ASSESS POS TOOL F/U PLAN DOC DISPOSITION & COMMUNICATION FOLLOW UP 2 MONTHS ELECTRONICALLY SIGNED BY CATALINA DAN MD, MD ON 07/12/2018 AT 05:38 PM EST DISCLAIMER : THIS IS A VISIT SUMMARY EXTRACTED FROM THE [employer] CHART. IT IS NOT A COPY OF THE [employer] PROGRESS NOTE. LINA
== END ==
LOC: M PAIN 12:30
PROVIDERS: ATTEND Anesthesiology
DX: M54.5 Low back pain (principal); G89.29 Other chronic pain; I10 Essential (primary) hypertension; J44.9 Chronic obstructive pulmonary disease, unspecified; K74.3 Primary biliary cirrhosis; Z79.01 Long term (current) use of anticoagulants; Z79.82 Long term (current) use of aspirin; Z79.51 Long term (current) use of inhaled steroids; Z79.899 Other long term (current) drug therapy; Z88.0 Allergy status to penicillin; Z88.6 Allergy status to analgesic agent; Z88.8 Allergy status to other drugs, medicaments and biological substances; Z96.653 Presence of artificial knee joint, bilateral; Z86.73 Personal history of transient ischemic attack (TIA), and cerebral infarction without residual deficits; Z86.79 Personal history of other diseases of the circulatory system

== ENCOUNTER → 2018-09-09 | Outpatient (CLI) | payer MEDICARE ==
[~2018-09-09] MED LIST changes: -/WARF25TA OR; -/WARF5TA OR; -ASPI1TAB PO; +ASPI81TA26 PO; +COUM1TAB17 OR; +COUM1TAB18 OR
--- NOTE | 2018-09-09 15:59 | REP ---
Diaphragmatic excursion test with fluoroscopy: Index Inspiration sequence #1 is page 18. The dome of the right hemidiaphragm is between the T9 and T10 ribs. The dome of the left hemidiaphragm is at the T11 rib. End Inspiration sequence #2 is page 81. The dome of the right hemidiaphragm is just between T9 and T10 ribs . The dome of the left hemidiaphragm is just above the T11 rib. Single End Expiration sequence is page 44. The dome of the right hemidiaphragm and just above the T9 rib. The dome of the left hemidiaphragm is just above the T10 rib. Fluoroscopic exposure time is 1.0 minutes. Electronically Signed by Sourav Daniel MD 09/09/2018 03:50 P
== END ==
LOC: M RAD 14:08
PROVIDERS: ATTEND Internal Medicine Pulmonary Disease
DX: R94.2 Abnormal results of pulmonary function studies (principal)

== ENCOUNTER → 2018-09-20 | Outpatient (CLI) | payer OTHER ==
--- NOTE | 2018-10-03 23:59 | ECWPNPC ---
PATIENT NAME: ADALBERTO BOND : 1945 GENDER: FEMALE VISIT DATE: 09/20/2018 DISCHARGE DATE: 09/20/18 1310 VISIT LOCKED DATE TIME: PHYSICIAN: CATALINA DAN MD RESOURCE: CATALINA DAN MD REASON FOR APPOINTMENT 1. W/C LOW BACK HISTORY OF PRESENT ILLNESS HISTORY OF PRESENT ILLNESS: PAIN THE PATIENT DESCRIBES THE PAIN... 73 YEAR OLD FEMALE PATIENT WITH A HISTORY OF CHRONIC LOW BACK PAIN. THE PATIENT DESCRIBES THE PAIN ACHING, BURNING, SORE, TENDER AND CONTINUOUS WITH A PAIN SCORE OF 6-7/10. 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 THE PATIENT STATES THE PAIN STARTS IN HER LOWER BACK AND RADIATES TO HER RIGHT LEG. THE PATIENT STATES HER PAIN HAS INCREASED. THE PATIENT IS CURRENTLY USING TIZANIDINE, CYMBALTA, CODEINE AND LIDOCAINE PATCHES TO AID IN PAIN RELIEF. PATIENT DENIES UNEXPLAINABLE WEIGHT LOSS, FEVER, CHILLS, NEW CHANGES ON HER URINARY OR BOWEL CONTROL. FALL RISK SCREENING: SCREENING :NO FALLS REPORTED IN THE LAST YEAR CURRENT MEDICATIONS TAKING TIZANIDINE HCL 2 MG TABLET 1 TO 2 TABLET NEEDED ORALLY BEFORE BEDTIME FOR SPASMS AND PAIN TAKING LIDOCAINE 5 % PATCH 2 PATCHES DIRECTED EXTERNALLY AT BACK BEFORE BEDTIME TAKING CYMBALTA 60 MG _ 1 CAP PO ONCE DAILY FOR PAIN TAKING CODEINE SULFATE 15 MG TABLET 1 TABLET NEEDED ORALLY CODE D CHRONIC PAIN EVERY 6 HRS PRN FOR PAIN MDD2 TAKING URSODIOL 300 MG CAPSULE 1 TAB(S) ORALLY BID TAKING ALPRAZOLAM 0.25 MG TABLET 1 TABLET ORALLY TWICE DAILY NEEDED TAKING ASPIR-81 81 MG TABLET DELAYED RELEASE 1 TABLET ORALLY ONCE A DAY TAKING ATORVASTATIN CALCIUM 40 MG TABLET 1 TABLET ORALLY 3 TIMES A WEEK TAKING BUPROPION HCL ER (XL) 300 MG TABLET EXTENDED RELEASE 24 HOUR 1 TABLET IN THE MORNING ORALLY ONCE A DAY TAKING NORVASC 5 MG TABLET 1 TABLET ORALLY ONCE A DAY TAKING PREVACID 30 MG CAPSULE DELAYED RELEASE 1 CAPSULE ORALLY ONCE A DAY TAKING FUROSEMIDE 20 MG TABLET 1 TABLET ORALLY ONCE A DAY TAKING PLAVIX 75 MG TABLET 1 TABLET ORALLY ONCE A DAY TAKING VITAMIN B-12 1000 MCG 1 GUMMY BEAR ORALLY ONCE A DAY TAKING METOPROLOL SUCCINATE ER 50 MG TABLET EXTENDED RELEASE 24 HOUR 1 TABLET ORALLY DAILY TAKING NYSTATIN POWDER POWDER NEEDED TAKING IRON 325 (65 FE) MG TABLET 1 TABLET ORALLY ONCE A DAY NOT-TAKING CALCIUM + D 600-200 MG-UNIT TABLET 1 TABLET WITH FOOD ORALLY DAILY NOT-TAKING ISOSORBIDE MONONITRATE ER 30 MG TABLET EXTENDED RELEASE 24 HOUR 1 TABLET IN THE MORNING ORALLY ONCE A DAY NOT-TAKING ALEVE PM 220-25 MG TABLET 1 TAB(S) ORALLY QHS NEEDED DISCONTINUED ANORO ELLIPTA 62.5-25 MCG/INH AEROSOL POWDER BREATH ACTIVATED 1 PUFF INHALATION ONCE A DAY DISCONTINUED [id number] - TABLET ORALLY DISCONTINUED IBUPROFEN 200 MG TABLET 1 TABLET WITH FOOD OR MILK ORALLY BID DISCONTINUED TYLENOL EXTRA STRENGTH 500 MG TABLET 2 TABLET ORALLY BID NEEDED DISCONTINUED ALBUTEROL-IPRATROPIUM 2.5-0.5 MG/3ML SOLUTION 3 ML NEBULIZER FOUR TIMES A DAY NEEDED MEDICATION LIST REVIEWED AND RECONCILED WITH THE PATIENT PAST MEDICAL HISTORY 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 2 SON(S) - HEALTHY. SOCIAL HISTORY GENERAL: TOBACCO USE ARE YOU A:NONSMOKER LATEX QUESTIONNAIRE LATEX ALLERGY : HAVE YOU EVER DEVELOPED ANY TYPE OF REACTION AFTER HANDLING LATEX PRODUCTS SUCH RUBBER GLOVES, CONDOMS, DIAPHRAGMS, BALLOONS, SOCKS, OR UNDERWEAR?NO LATEX ALLERGY : HAVE YOU EVER DEVELOPED ANY TYPE OF REACTION DURING OR AFTER DENTAL APPOINTMENT, VAGINAL/RECTAL EXAMINATION, SURGICAL PROCEDURE, OR ANY OTHER EXPOSURE?NO LATEX RISK : HAVE YOU EVER HAD ANY DIFFICULTY BREATHING OR HIVES AFTER EATING OR HANDLING ANY FRUITS, OR VEGETABLES; SUCH KIWI, BANANAS, STONE FRUITS, OR CHESTNUTSNO LATEX RISK : DO YOU HAVE A PREVIOUS PERSONAL HISTORY OF MORE THAN NINE SURGERIES, SPINA BIFIDA, OR REPEATED CATHERTIZATIONS? NO LATEX RISK : ARE YOU FREQUENTLY EXPOSED TO LATEX PRODUCTS IN YOUR OCCUPATION?NO DATE ASKED : 09/20/2018 ALCOHOL SCREENING DID YOU HAVE A DRINK CONTAINING ALCOHOL IN THE PAST YEAR?YES HOW OFTEN DID YOU HAVE A DRINK CONTAINING ALCOHOL IN THE PAST YEAR?MONTHLY OR LESS (1 POINT) POINTS1 INTERPRETATIONNEGATIVE RECREATIONAL DRUG USE DRUG USE?NO QUAKER [id number] CONFUCIANISM LANGUAGE LANGUAGES SPOKEN:EMIRATI LEARNING BARRIERS / SPECIAL NEEDS VISION IMPAIRED?YES :CORRECTIVE LENSES READINESS TO LEARN?YES LEARNING PREFERENCES?NO SPECIAL DEVICES?NO PAIN CLINIC PFS, CLERGY, PUBLIC HEALTH REFERRALS PFS REFERRAL NEEDED?NO CLERGY REFERRAL NEEDED?NO PUBLIC HEALTH REFERRAL NEEDED?NO WAS THE PROVIDER NOTIFIED OF ANY PERTINENT INFO?NO HAS THE PATIENT BEEN EDUCATED REGARDING HIS/HER PLAN OF CARE?YES HAS THE PATIENT BEEN EDUCATED REGARDING PAIN, THE RISK FOR PAIN, THE IMPORTANCE OF EFFECTIVE PAIN MANAGEMENT, AND THE PAIN ASSESSMENT PROCESS?YES ADVANCE DIRECTIVE ADVANCE DIRECTIVE DISCUSSED WITH PATIENT:YES DECLINED REVIEWED WITH PT 03/18/18 0922 BVREVIEWED WITH PT 09/20/18 1047 BV. HOSPITALIZATION/MAJOR DIAGNOSTIC PROCEDURE PNEUMONIA 06/2015 REVIEW OF SYSTEMS REVIEWED BY: PROVIDER: CATALINA DAN MD . CONSTITUTIONAL: ANY CHANGE IN YOUR MEDICAL CONDITION? YES, PT DIAGNOSED WITH ANEMIA AND STARTED ON IRON ABOUT A WEEK AGO. HAD [facility] [employer] [facility]IT[facility] INSTALLED July,. . CHILLS NO . FEVER NO . INFECTION: DO YOU HAVE NEW INFECTIONS? NO . DO YOU HAVE HISTORY OF MRSA? NO . MUSCULOSKELETAL: ANY NEW PATTERNS OF PAIN OR NUMBNESS? YES, INCREASING PAIN AND WEAKNESS IN LOWER BACK. . GASTROENTEROLOGY: ANY NEW CHANGE IN BOWEL CONTROL? NO . GENITOURINARY: ANY NEW CHANGE IN BLADDER CONTROL? NO . IS THERE A CHANCE YOU COULD BE ? NO . HEMATOLOGY/LYMPH: DO YOU TAKE ANY BLOOD THINNERS? (FOR EXAMPLE- COUMADIN, PLAVIX, AGGRENOX, PLATEL, PRADAXA, OR XARELTO) YES, PLAVIX LAST 09-20-18 0800 . WHEN WAS YOUR LAST DOSE? DATE: TIME: . NEUROLOGY: HAVE YOU FALLEN IN THE PAST 12 MONTHS? NO . ANY NEW EXTREMITY NUMBNESS OR WEAKNESS? NO . CARDIOLOGY: DO YOU HAVE A PACEMAKER OR DEFIBRILLATOR? NO . RESPIRATORY: HAVE YOU BEEN SICK IN THE PAST WEEK? NO . FEVER NO . FLU LIKE SYMPTOMS? NO . 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 INTEGUMENTARY: DO YOU HAVE ANY RASHES OR OPEN SORES? NO . ALLERGIC/IMMUNO: ARE YOU ALLERGIC TO IV DYE? NO . ANY NEW ALLERGIES? NO . PSYCHIATRIC: DO YOU HAVE THOUGHTS OF HURTING YOURSELF OR SOMEONE ELSE? NO . ARE YOU ABUSED, NEGLECTED, OR IN AN UNSAFE ENVIRONMENT? NO . ENDOCRINOLOGY: ARE YOU DIABETIC? NO . OTHER: DO YOU NEED ANY PRESCRIPTIONS? YES, CODEINE SULFATE, TIZANIDINE, CYMBALTA . IF YES, PLEASE LIST: ____ . ANY NEW PROBLEMS WITH YOUR MEDICATIONS? YES, PAIN NOT BEING CONTROLLED . WHEN DID YOU LAST EAT? ____ . WHEN DID YOU LAST DRINK? ____ . WHAT DID YOU LAST DRINK? ____ . NAME OF PERSON DRIVING YOU HOME? ____ . DO YOU HAVE ANY OTHER QUESTIONS OR CONCERNS NO . VITAL SIGNS WT 198 LBS, HT 65 IN, BMI 32.95 INDEX, BP 138/64 MM HG, HR 68 /MIN, RR 16 /MIN, TEMP 98.2 F, OXYGEN SAT % 96%, NA INITIALS AW 1033, REVIEWED BY: BV. EXAMINATION GENERAL EXAMINATION: PATIENT IS ALERT O X 3 AND COOPERATIVE. TENDERNESS IN THE LOW BACK AREA. ANTALGIC GAIT. MRI OF THE LUMBAR SPINE DONE 09/11/2014 SHOWS BULGING DISCS, STENOSIS, AND FACET HYPERTROPHY. ASSESSMENTS LOW BACK PAIN - M54.5 (PRIMARY) OTHER CHRONIC PAIN - G89.29 MYALGIA - M79.10 TREATMENT LOW BACK PAIN CLINICAL NOTES: WE DISCUSSED SEVERAL ISSUES WITH MRS. BOND'S PAIN MANAGEMENT ISSUES. I WILL INCREASE THE CYMBALTA TO 30 MG IN THE MORNING AND 60 MG AT NIGHT. PATIENT WILL CONTINUE WITH OTHER MEDICATION REGIMENT. URINE TOXICOLOGY DONE TODAY. ISTOP _[id number] REVIEWED. WE DISCUSSED POSSIBLE FACET BLOCK OR EPIDURAL IN THE FUTURE. PATIENT WILL FOLLOW UP IN 1 MONTH. INSTRUCTIONS WERE GIVEN, QUESTIONS WERE ANSWERED, PATIENT REPORTS UNDERSTANDING AND AGREES WITH THE PLAN. I, JESSICA ALMONTE, DOCUMENTED THE ABOVE INFORMATION ACTING A SCRIBE FOR DR. DAN. I HAVE REVIEWED THE ABOVE DOCUMENT, WRITTEN BY JESSICA ALMONTE SCRIBKavya AND I VERIFY THAT IT IS ACCURATE.. OTHERS REFILL CYMBALTA _, 60 MG, 1 CAP, PO, ONCE DAILY FOR PAIN, 90 DAY(S), 90, REFILLS 0 REFILL CODEINE SULFATE TABLET, 15 MG, 1 TABLET NEEDED, ORALLY CODE D CHRONIC PAIN, EVERY 6 HRS PRN FOR PAIN MDD2, 90 DAYS, 120, REFILLS 0 REFILL TIZANIDINE HCL TABLET, 4 MG, 1 TABLET NEEDED, ORALLY, BEFORE BEDTIME FOR SPASMS AND PAIN, 90 DAY(S), 90, REFILLS 0 START CYMBALTA CAPSULE DELAYED RELEASE PARTICLES, 30 MG, 1 CAPSULE, ORALLY IN AM WITH FOOD, ONCE A DAY, 30 DAY(S), 30, REFILLS 1 PROCEDURES PN WORKMANS' COMP OPINION IN YOUR OPINION, WAS THE INCIDENT THAT THE PATIENT DESCRIBED THE COMPETENT MEDICAL CAUSE OF THIS INJURY/ILLNESS? YES ARE THE PATIENT'S COMPLAINTS CONSISTENT WITH HIS/HER HISTORY OF THE INJURY/ILLNESS? YES IS THE PATIENT'S HISTORY OF THE INJURY/ILLNESS CONSISTENT WITH YOUR OBJECTIVE FINDING? YES WHAT IS THE PERCENTAGE OF TEMPORARY IMPAIRMENT? MODERATE TO MARKED = 66.7% IS THE PATIENT WORKING? NO DOCTOR ON SITE: CATALINA CASAS MD PROCEDURE CODES FA211 ESTABILISHED PATIENT [facility] FACILITY CHARGE G8427 CURRENT MEDS W/DOSAGES DOCUMENTED G8730 PAIN ASSESS POS TOOL F/U PLAN DOC DISPOSITION & COMMUNICATION FOLLOW UP 4 WEEKS ELECTRONICALLY SIGNED BY CATALINA DAN MD, MD ON 10/03/2018 AT 08:36 PM EDT DISCLAIMER : THIS IS A VISIT SUMMARY EXTRACTED FROM THE [employer] CHART. IT IS NOT A COPY OF THE [employer] PROGRESS NOTE. MTDD
== END ==
LOC: M PAIN 10:15
PROVIDERS: ATTEND Anesthesiology
DX: M54.5 Low back pain (principal); G89.29 Other chronic pain; M79.10 Myalgia, unspecified site; I10 Essential (primary) hypertension; J44.9 Chronic obstructive pulmonary disease, unspecified; D64.9 Anemia, unspecified; Z79.01 Long term (current) use of anticoagulants; Z79.82 Long term (current) use of aspirin; Z79.899 Other long term (current) drug therapy; Z88.0 Allergy status to penicillin; Z88.6 Allergy status to analgesic agent; Z88.8 Allergy status to other drugs, medicaments and biological substances; Z86.79 Personal history of other diseases of the circulatory system; Z86.73 Personal history of transient ischemic attack (TIA), and cerebral infarction without residual deficits; Z96.653 Presence of artificial knee joint, bilateral

== ENCOUNTER → 2018-10-06 | Outpatient (REF) | payer MEDICARE ==
[2018-10-06 13:13] LABS: PERCENT SATURATION 10.1 % (13.2-45.0)
== END ==
LOC: M LAB REF 12:18
PROVIDERS: ATTEND Internal Medicine
DX: D64.9 Anemia, unspecified (principal)

== ENCOUNTER → 2018-11-15 | Outpatient (CLI) | payer OTHER ==
--- NOTE | 2018-11-28 23:45 | ECWPNPC ---
PATIENT NAME: ADALBERTO BOND : 1945 GENDER: FEMALE VISIT DATE: 11/15/2018 DISCHARGE DATE: 11/15/18 1602 VISIT LOCKED DATE TIME: PHYSICIAN: CATALINA DAN MD RESOURCE: CATALINA DAN MD REASON FOR APPOINTMENT 1. 4 WKS PER HISTORY OF PRESENT ILLNESS HISTORY OF PRESENT ILLNESS: PAIN THE PATIENT DESCRIBES THE PAIN... 73 YEAR OLD FEMALE PATIENT WITH A HISTORY OF CHRONIC LOW BACK PAIN. THE PATIENT DESCRIBES THE PAIN ACHING, BURNING, SORE, TENDER, SHARP, AND CONTINUOUS WITH A PAIN SCORE OF 4-10/10 DEPENDING ON PHYSICAL ACTIVITY. 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 THE PATIENT SAYS HER PAIN HAS WORSENED IN THE PAST MONTH AND SHE HAS ALSO BEEN EXPERIENCING SOME DIZZINESS. THE PATIENT IS CURRENTLY USING CYMBALTA, CODEINE, TIZANIDINE, AND LIDOCAINE PATCHES TO AID IN PAIN RELIEF. THE PATIENT SAYS THE USE OF THESE MEDICATIONS HELP HER REMAIN MOBILE AND FUNCTIONAL, BUT IN THE PAST MONTH SHE HAS HAD DIFFICULTIES DOING DAILY ACTIVITIES SUCH COOKING, CLEANING, WORKING AROUND HER HOUSE, AND GROCERY SHOPPING DUE TO THIS PAIN. THE PATIENT STATES THAT OVER THE PAST 2 YEAR SHE HAS TRIED SEVERAL OPTIONS FOR PAIN RELIEF INCLUDING PHYSICAL THERAPY, AT HOME EXERCISES, STRETCHING, CHIROPRACTOR VISITS, ICE AND HEAT, PATCHES, ORAL MEDICATIONS, USING AN ADJUSTABLE BED, AND WEIGHT MANAGEMENT. THE PATIENT SAYS THAT THESE METHODS HAVE NOT IMPROVED HER CONDITION. PATIENT DENIES UNEXPLAINABLE WEIGHT LOSS, FEVER, CHILLS, NEW CHANGES ON HER URINARY OR BOWEL CONTROL. FALL RISK SCREENING: SCREENING :NO FALLS REPORTED IN THE LAST YEAR CURRENT MEDICATIONS TAKING CYMBALTA 60 MG _ 1 CAP PO BID TAKING CODEINE SULFATE 15 MG TABLET 1 TABLET NEEDED ORALLY CODE D CHRONIC PAIN EVERY 6 HRS PRN FOR PAIN MDD2 TAKING TIZANIDINE HCL 4 MG TABLET 1 TABLET NEEDED ORALLY BEFORE BEDTIME FOR SPASMS AND PAIN TAKING LIDOCAINE 5 % PATCH 2 PATCHES DIRECTED EXTERNALLY AT BACK BEFORE BEDTIME TAKING URSODIOL 300 MG CAPSULE 1 TAB(S) ORALLY BID TAKING ALPRAZOLAM 0.25 MG TABLET 1 TABLET ORALLY TWICE DAILY NEEDED TAKING ATORVASTATIN CALCIUM 40 MG TABLET 1 TABLET ORALLY 3 TIMES A WEEK TAKING BUPROPION HCL ER (XL) 300 MG TABLET EXTENDED RELEASE 24 HOUR 1 TABLET IN THE MORNING ORALLY ONCE A DAY TAKING NORVASC 5 MG TABLET 1 TABLET ORALLY ONCE A DAY TAKING PREVACID 30 MG CAPSULE DELAYED RELEASE 1 CAPSULE ORALLY ONCE A DAY TAKING FUROSEMIDE 20 MG TABLET 1 TABLET ORALLY ONCE A DAY TAKING PLAVIX 75 MG TABLET 1 TABLET ORALLY ONCE A DAY TAKING VITAMIN B-12 1000 MCG 1 GUMMY BEAR ORALLY ONCE A DAY TAKING METOPROLOL SUCCINATE ER 50 MG TABLET EXTENDED RELEASE 24 HOUR 1 TABLET ORALLY DAILY TAKING NYSTATIN POWDER POWDER NEEDED TAKING IRON 325 (65 FE) MG TABLET 1 TABLET ORALLY ONCE A DAY TAKING ADVAIR DISKUS 250-50 MCG/DOSE AEROSOL POWDER BREATH ACTIVATED 1 PUFF INHALATION TWICE A DAY, NOTES: UNSURE OF DOSE TAKING PRADAXA 75 MG CAPSULE 1 CAP ORALLY TWICE A DAY, NOTES: UNSURE OF DOSE NOT-TAKING ASPIR-81 81 MG TABLET DELAYED RELEASE 1 TABLET ORALLY ONCE A DAY NOT-TAKING CYMBALTA 30 MG CAPSULE DELAYED RELEASE PARTICLES 1 CAPSULE ORALLY IN AM WITH FOOD ONCE A DAY, NOTES: RAN OUT NOT-TAKING CALCIUM + D 600-200 MG-UNIT TABLET 1 TABLET WITH FOOD ORALLY DAILY NOT-TAKING ISOSORBIDE MONONITRATE ER 30 MG TABLET EXTENDED RELEASE 24 HOUR 1 TABLET IN THE MORNING ORALLY ONCE A DAY NOT-TAKING ALEVE PM 220-25 MG TABLET 1 TAB(S) ORALLY QHS NEEDED MEDICATION LIST REVIEWED AND RECONCILED WITH THE PATIENT PAST MEDICAL HISTORY 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 2 SON(S) - HEALTHY. SOCIAL HISTORY GENERAL: TOBACCO USE ARE YOU A:NONSMOKER PAIN CLINIC PFS, CLERGY, PUBLIC HEALTH REFERRALS PFS REFERRAL NEEDED?NO CLERGY REFERRAL NEEDED?NO PUBLIC HEALTH REFERRAL NEEDED?NO WAS THE PROVIDER NOTIFIED OF ANY PERTINENT INFO?NO HAS THE PATIENT BEEN EDUCATED REGARDING HIS/HER PLAN OF CARE?YES HAS THE PATIENT BEEN EDUCATED REGARDING PAIN, THE RISK FOR PAIN, THE IMPORTANCE OF EFFECTIVE PAIN MANAGEMENT, AND THE PAIN ASSESSMENT PROCESS?YES LATEX QUESTIONNAIRE LATEX ALLERGY : HAVE YOU EVER DEVELOPED ANY TYPE OF REACTION AFTER HANDLING LATEX PRODUCTS SUCH RUBBER GLOVES, CONDOMS, DIAPHRAGMS, BALLOONS, SOCKS, OR UNDERWEAR?NO LATEX ALLERGY : HAVE YOU EVER DEVELOPED ANY TYPE OF REACTION DURING OR AFTER DENTAL APPOINTMENT, VAGINAL/RECTAL EXAMINATION, SURGICAL PROCEDURE, OR ANY OTHER EXPOSURE?NO LATEX RISK : HAVE YOU EVER HAD ANY DIFFICULTY BREATHING OR HIVES AFTER EATING OR HANDLING ANY FRUITS, OR VEGETABLES; SUCH KIWI, BANANAS, STONE FRUITS, OR CHESTNUTSNO LATEX RISK : DO YOU HAVE A PREVIOUS PERSONAL HISTORY OF MORE THAN NINE SURGERIES, SPINA BIFIDA, OR REPEATED CATHERTIZATIONS? NO LATEX RISK : ARE YOU FREQUENTLY EXPOSED TO LATEX PRODUCTS IN YOUR OCCUPATION?NO DATE ASKED : 09/20/2018 ADVANCE DIRECTIVE ADVANCE DIRECTIVE DISCUSSED WITH PATIENT:YES HCP - SHARLENE BOND (SON) JEW [id number] RESTORATIONIST LANGUAGE LANGUAGES SPOKEN:LAO MARITAL STATUS: DOMESTIC PARTNER. ALCOHOL SCREENING DID YOU HAVE A DRINK CONTAINING ALCOHOL IN THE PAST YEAR?YES HOW OFTEN DID YOU HAVE A DRINK CONTAINING ALCOHOL IN THE PAST YEAR?MONTHLY OR LESS (1 POINT) POINTS1 INTERPRETATIONNEGATIVE RECREATIONAL DRUG USE DRUG USE?NO LEARNING BARRIERS / SPECIAL NEEDS VISION IMPAIRED?YES :CORRECTIVE LENSES READINESS TO LEARN?YES LEARNING PREFERENCES?NO SPECIAL DEVICES?NO REVIEWED WITH PT 03/18/18 0913 BVREVIEWED WITH PT 09/20/18 1047 BVREVIEWED WITH PATIENT 11/15/18 1508 JS. HOSPITALIZATION/MAJOR DIAGNOSTIC PROCEDURE PNEUMONIA 06/2015 REVIEW OF SYSTEMS REVIEWED BY: PROVIDER: CATALINA DAN MD . CONSTITUTIONAL: ANY CHANGE IN YOUR MEDICAL CONDITION? YES, A. FIB, ASTHMA, PNEUMONIA . CHILLS NO . FEVER NO . INFECTION: DO YOU HAVE NEW INFECTIONS? YES, PNUEMONIA IN MAY AND SEPTEMBER . DO YOU HAVE HISTORY OF MRSA? NO . MUSCULOSKELETAL: ANY NEW PATTERNS OF PAIN OR NUMBNESS? NO . GASTROENTEROLOGY: ANY NEW CHANGE IN BOWEL CONTROL? NO . GENITOURINARY: ANY NEW CHANGE IN BLADDER CONTROL? NO . IS THERE A CHANCE YOU COULD BE ? NO . HEMATOLOGY/LYMPH: DO YOU TAKE ANY BLOOD THINNERS? (FOR EXAMPLE- COUMADIN, PLAVIX, AGGRENOX, PLATEL, PRADAXA, OR XARELTO) YES, PLAVIX AND PRADAXA . WHEN WAS YOUR LAST DOSE? DATE: 11/15/18TIME: 1000 . NEUROLOGY: HAVE YOU FALLEN IN THE PAST 12 MONTHS? YES, STATES FALL ABOUT 3 WEEKS AGO, CAUGHT HERSELF IN A CHAIR. STATES NO INJURIES, NO ED VISIT . ANY NEW EXTREMITY NUMBNESS OR WEAKNESS? NO . CARDIOLOGY: DO YOU HAVE A PACEMAKER OR DEFIBRILLATOR? NO . RESPIRATORY: HAVE YOU BEEN SICK IN THE PAST WEEK? YES, PNUEMONIA IN SEPTEMBER . FEVER NO . FLU LIKE SYMPTOMS? NO . COUGH YES, WITH THE PNEUMONIA, BETTER NOW . INTEGUMENTARY: DO YOU HAVE ANY RASHES OR OPEN SORES? NO . ALLERGIC/IMMUNO: ARE YOU ALLERGIC TO IV DYE? NO . ANY NEW ALLERGIES? NO . PSYCHIATRIC: DO YOU HAVE THOUGHTS OF HURTING YOURSELF OR SOMEONE ELSE? NO . ARE YOU ABUSED, NEGLECTED, OR IN AN UNSAFE ENVIRONMENT? NO . ENDOCRINOLOGY: ARE YOU DIABETIC? NO . OTHER: DO YOU NEED ANY PRESCRIPTIONS? YES . IF YES, PLEASE LIST: ____CODEINE, CYMBALTA, TIZANIDINE . ANY NEW PROBLEMS WITH YOUR MEDICATIONS? PATIENT STATES SHE HAS BEEN FEELING DIZZY/LIGHTHEADED LATELY, ALL THE TIME, AT REST - STARTED A COUPLE WEEKS AGO AND WORSENING OVER THE PAST FEW DAYS. PATIENT NOW TAKING PRADAXA, STARTED 10/27/18, AND CYMBALTA WAS INCREASED BY YOU LAST VISIT . WHEN DID YOU LAST EAT? ____ . WHEN DID YOU LAST DRINK? ____ . WHAT DID YOU LAST DRINK? ____ . NAME OF PERSON DRIVING YOU HOME? ____ . DO YOU HAVE ANY OTHER QUESTIONS OR CONCERNS STATES SHINGLES VACCINE - RECEIVED FIRST ONE ALREADY, IS DUE FOR THE SECOND ONE SOON . VITAL SIGNS WT 200.0 LBS, HT 65 IN, BMI 33.28 INDEX, BP 170/76 MM HG, REPEAT BP 146/67 MM HG, HR 56 /MIN, RR 16 /MIN, TEMP 98.1 F, OXYGEN SAT % 94%, SAFE IN ENV? (Y/N) YES, NA INITIALS AW 1435, REVIEWED BY: LENNY. EXAMINATION GENERAL EXAMINATION: PATIENT IS ALERT O X 3 AND COOPERATIVE. TENDERNESS IN THE LOW BACK AREA. PRESENCE OF TRIGGER POINTS AND BANDS OF TISSUE WITH RESTRICTION OF MOVEMENT OF THE BACK. ASSESSMENTS MYALGIA, OTHER SITE - M79.18 (PRIMARY) TREATMENT MYALGIA, OTHER SITE CLINICAL NOTES: WE DISCUSSED SEVERAL ISSUES WITH MRS. BOND'S PAIN MANAGEMENT CASE. DUE TO THE TRIGGER POINTS, BANDS OF TISSUE, AND RESTRICTION OF MOVEMENT, I WOULD LIKE TO MOVE FORWARD WITH A TRIGGER POINT INJECTION AT THIS TIME. WE DISCUSSED THE BENEFITS, RISKS, AND ALTERNATIVES OF THE INJECTION AND THE PATIENT WOULD LIKE TO PROCEED. I WILL REDUCE THE CYMBALTA TO 30MG IN THE MORNING AND 60MG AT NIGHT TO SEE IF THAT IS THE CAUSE OF THE DIZZINESS. THE PATIENT WILL CONTINUE USING THE CODEINE AND LIDOCAINE PATCHES FOR THE SOMATIC PAIN AND THE TIZANIDINE FOR ACUTE SPASMS AND PAIN. ISTOP _#[id number] WAS REVIEWED. URINE TOXICOLOGY DONE ON 09/20/2018 SHOWS CONCURRENT RESULTS. THE PATIENT WILL FOLLOW UP A FEW WEEKS AFTER THE INJECTION. INSTRUCTIONS WERE GIVEN, QUESTIONS WERE ANSWERED, PATIENT REPORTS UNDERSTANDING AND AGREES WITH THE PLAN. I, ANTOINE SAWANT, DOCUMENTED THE ABOVE INFORMATION ACTING A SCRIBE FOR DR. DAN. I HAVE REVIEWED THE ABOVE DOCUMENT, WRITTEN BY ANTOINE SAWANT SCRIBKavya AND I VERIFY THAT IT IS ACCURATE. . OTHERS REFILL CYMBALTA _, 60 MG, 1 CAP, PO, BID, 30 DAYS, 60 REFILL CODEINE SULFATE TABLET, 15 MG, 1 TABLET NEEDED, ORALLY CODE D CHRONIC PAIN, EVERY 6 HRS PRN FOR PAIN MDD2, 90 DAYS, 120, REFILLS 0 REFILL TIZANIDINE HCL TABLET, 4 MG, 1 TABLET NEEDED, ORALLY, BEFORE BEDTIME FOR SPASMS AND PAIN, 90 DAY(S), 90, REFILLS 0 REFILL LIDOCAINE PATCH, 5 %, 2 PATCHES DIRECTED, EXTERNALLY AT BACK, BEFORE BEDTIME, 90 DAY(S), 180, REFILLS 0 REFILL CYMBALTA CAPSULE DELAYED RELEASE PARTICLES, 30 MG, 1 CAPSULE, ORALLY WITH FOOD, 1 CAP IN AM 2 CAP IN PM MDD3, 30 DAY(S), 90, REFILLS 1, NOTES: RAN OUT NOTES: OPTIONS: TRIGGER POINT INJECTION MATERIAL WAS PRINTED. PROCEDURES PN WORKMANS' COMP OPINION IN YOUR OPINION, WAS THE INCIDENT THAT THE PATIENT DESCRIBED THE COMPETENT MEDICAL CAUSE OF THIS INJURY/ILLNESS? YES ARE THE PATIENT'S COMPLAINTS CONSISTENT WITH HIS/HER HISTORY OF THE INJURY/ILLNESS? YES IS THE PATIENT'S HISTORY OF THE INJURY/ILLNESS CONSISTENT WITH YOUR OBJECTIVE FINDING? YES WHAT IS THE PERCENTAGE OF TEMPORARY IMPAIRMENT? MARKED = 75% IS THE PATIENT WORKING? NO DOCTOR ON SITE: CATALINA CASAS MD PREVENTIVE MEDICINE PAIN CLINIC TEACHING: PROCEDURE TEACHING PRINTED AND REVIEWED INFORMATION ON TRIGGER POINT INJECTIONS PROCEDURE WITH PATIENT. ALSO REVIEWED PRE-PROCEDURE INSTRUCTIONS. PATIENT VERBALIZED AN UNDERSTANDING. JASMINA PEÑA 11/15/2018 4:07:00 PM > . PROCEDURE CODES FA211 ESTABILISHED PATIENT [facility] FACILITY CHARGE [id number] CURRENT MEDS W/DOSAGES DOCUMENTED G8730 PAIN ASSESS POS TOOL F/U PLAN DOC DISPOSITION & COMMUNICATION FOLLOW UP REQUESTING AUTH ELECTRONICALLY SIGNED BY CATALINA DAN MD, MD ON 11/28/2018 AT 06:51 PM EDT DISCLAIMER : THIS IS A VISIT SUMMARY EXTRACTED FROM THE [employer] CHART. IT IS NOT A COPY OF THE [employer] PROGRESS NOTE. LIAN
== END ==
LOC: M PAIN 14:45
PROVIDERS: ATTEND Anesthesiology
DX: M79.18 Myalgia, other site (principal); I25.10 Atherosclerotic heart disease of native coronary artery without angina pectoris; Z95.5 Presence of coronary angioplasty implant and graft; D64.9 Anemia, unspecified; I48.91 Unspecified atrial fibrillation; M54.5 Low back pain; Z86.73 Personal history of transient ischemic attack (TIA), and cerebral infarction without residual deficits; Z96.653 Presence of artificial knee joint, bilateral; R03.0 Elevated blood-pressure reading, without diagnosis of hypertension; Z79.02 Long term (current) use of antithrombotics/antiplatelets; Z79.01 Long term (current) use of anticoagulants; Z79.899 Other long term (current) drug therapy; Z88.0 Allergy status to penicillin; Z88.6 Allergy status to analgesic agent; Z88.8 Allergy status to other drugs, medicaments and biological substances

== ENCOUNTER → 2018-11-25 | Outpatient (CLI) | payer MEDICARE ==
--- NOTE | 2018-11-29 17:50 | SLEEPHOME ---
DATE OF PROCEDURE: 11/25/2018 ORDERED BY: Dr. Camarillo [facility] home sleep testing was performed due to concern for the obstructive sleep apnea syndrome in this patient with a history of excessive somnolence and nonrestorative sleep. For testing a nocturnal T3 respiratory monitoring device was used. Continuous record was made of pulse oxygen saturation airflow, chest, abdominal strain and body position. 9 hours and 59 minutes of data were reviewed. There are 5 hours and 19 minutes marked as time in bed. During the interval marked time in bed. There were 42 respiratory events identified of 10 seconds in duration or greater for a respiratory event index of 7.9. The events were primarily obstructive, more frequent but not exclusive to the supine posture. Baseline pulse rate 62, pulse rate ranged 45-99. Baseline saturation 92% saturations fell to 85% in the oxygen desaturation index was 5.6. Testing was performed in both the supine and nonsupine positions. IMPRESSION: Abnormal home sleep testing with repetitive respiratory events and oxygen desaturations to 85% with a respiratory event index of 7.9 is consistent with the obstructive sleep apnea syndrome. RECOMMENDATIONS The patient should be referred for formal in laboratory sleep evaluation.
== END ==
LOC: M SLEEP HO 12:13
PROVIDERS: ATTEND Internal Medicine Pulmonary Disease
DX: R40.0 Somnolence (principal)

== ENCOUNTER → 2019-01-03 | Outpatient (CLI) | payer OTHER ==
--- NOTE | 2019-01-04 23:34 | ECWPNPC ---
PATIENT NAME: ADALBERTO BOND : 1945 GENDER: FEMALE VISIT DATE: 01/03/2019 DISCHARGE DATE: 01/03/19 1437 VISIT LOCKED DATE TIME: PHYSICIAN: JUDITH ORTEGA RESOURCE: JUDITH ORTEGA REASON FOR APPOINTMENT 1. W/C LOW BACK-30 MIN HISTORY OF PRESENT ILLNESS HISTORY OF PRESENT ILLNESS: PAIN THE PATIENT DESCRIBES THE PAIN... 73 YEAR OLD FEMALE IN FOR W/C CHRONIC PAIN FOLLOW UP. SHE RATES HER PAIN AT AN 8/10 CURRENTLY AND DESCRIBES IT BURNING, SORE, TENDER, AND SHARP. SHE FEELS THE MEDICATIONS ARE HELPFUL AND SHE DENIES MED SIDE EFFECTS. FALL RISK SCREENING: SCREENING :NO FALLS REPORTED IN THE LAST YEAR CURRENT MEDICATIONS TAKING CYMBALTA 60 MG _ 1 CAP PO BID TAKING TIZANIDINE HCL 4 MG TABLET 1 TABLET NEEDED ORALLY BEFORE BEDTIME FOR SPASMS AND PAIN TAKING LIDOCAINE 5 % PATCH 2 PATCHES DIRECTED EXTERNALLY AT BACK BEFORE BEDTIME TAKING CODEINE SULFATE 15 MG TABLET 1 TABLET NEEDED ORALLY CODE D CHRONIC PAIN EVERY 6 HRS PRN FOR PAIN MDD2, NOTES: NEVER GOT TAKING URSODIOL 300 MG CAPSULE 1 TAB(S) ORALLY BID TAKING ALPRAZOLAM 0.25 MG TABLET 1 TABLET ORALLY TWICE DAILY NEEDED TAKING ATORVASTATIN CALCIUM 40 MG TABLET 1 TABLET ORALLY 3 TIMES A WEEK TAKING BUPROPION HCL ER (XL) 300 MG TABLET EXTENDED RELEASE 24 HOUR 1 TABLET IN THE MORNING ORALLY ONCE A DAY TAKING NORVASC 5 MG TABLET 1 TABLET ORALLY ONCE A DAY TAKING PREVACID 30 MG CAPSULE DELAYED RELEASE 1 CAPSULE ORALLY ONCE A DAY TAKING FUROSEMIDE 20 MG TABLET 1 TABLET ORALLY ONCE A DAY TAKING PLAVIX 75 MG TABLET 1 TABLET ORALLY ONCE A DAY TAKING VITAMIN B-12 1000 MCG 1 GUMMY BEAR ORALLY ONCE A DAY TAKING METOPROLOL SUCCINATE ER 50 MG TABLET EXTENDED RELEASE 24 HOUR 1 TABLET ORALLY DAILY TAKING NYSTATIN POWDER POWDER NEEDED TAKING IRON 325 (65 FE) MG TABLET 1 TABLET ORALLY ONCE A DAY TAKING ADVAIR DISKUS 250-50 MCG/DOSE AEROSOL POWDER BREATH ACTIVATED 1 PUFF INHALATION TWICE A DAY, NOTES: UNSURE OF DOSE TAKING PRADAXA 75 MG CAPSULE 1 CAP ORALLY TWICE A DAY, NOTES: UNSURE OF DOSE NOT-TAKING CYMBALTA 30 MG CAPSULE DELAYED RELEASE PARTICLES 1 CAPSULE ORALLY WITH FOOD 1 CAP IN AM 2 CAP IN PM MDD3, NOTES: RAN OUT NOT-TAKING ASPIR-81 81 MG TABLET DELAYED RELEASE 1 TABLET ORALLY ONCE A DAY NOT-TAKING CALCIUM + D 600-200 MG-UNIT TABLET 1 TABLET WITH FOOD ORALLY DAILY NOT-TAKING ISOSORBIDE MONONITRATE ER 30 MG TABLET EXTENDED RELEASE 24 HOUR 1 TABLET IN THE MORNING ORALLY ONCE A DAY NOT-TAKING ALEVE PM 220-25 MG TABLET 1 TAB(S) ORALLY QHS NEEDED MEDICATION LIST REVIEWED AND RECONCILED WITH THE PATIENT PAST MEDICAL HISTORY 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 01/01/18 HIGH BLOOD PRESSURE COPD - STATES SHE DOESN'T HAVE ANEMIA PNEUMONIA ATRIAL FIBRILLATION LOW BACK PAIN JOSEPH - USES CPAP MYALGIA ALLERGIES PENICILLIN (FOR ALLERGIES USE ONLY): ANAPHYLAXIS - ALLERGY VIOXX (FOR ALLERGY USE ONLY): ANGIOEDEMA - SIDE EFFECTS LYRIC INHIBITOR (FOR ALLERGIES USE ONLY): ANAPHYLAXIS - SIDE EFFECTS NSAIDS/NAPROXYN: GI BLEED - CONTRAINDICATION SURGICAL HISTORY RIGHT KNEE REPLACEMENT 09/2009 LEFT KNEE REPLACEMENT 01/2010 CARDIAC STENT PLACED 01/01/18 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 2 SON(S) - HEALTHY. SEVERAL SIBLINGS-HEART DISEASE. SOCIAL HISTORY GENERAL: TOBACCO USE ARE YOU A:NONSMOKER PAIN CLINIC PFS, CLERGY, PUBLIC HEALTH REFERRALS PFS REFERRAL NEEDED?NO CLERGY REFERRAL NEEDED?NO PUBLIC HEALTH REFERRAL NEEDED?NO WAS THE PROVIDER NOTIFIED OF ANY PERTINENT INFO? N/A HAS THE PATIENT BEEN EDUCATED REGARDING HIS/HER PLAN OF CARE?YES HAS THE PATIENT BEEN EDUCATED REGARDING PAIN, THE RISK FOR PAIN, THE IMPORTANCE OF EFFECTIVE PAIN MANAGEMENT, AND THE PAIN ASSESSMENT PROCESS?YES LATEX QUESTIONNAIRE LATEX ALLERGY : HAVE YOU EVER DEVELOPED ANY TYPE OF REACTION AFTER HANDLING LATEX PRODUCTS SUCH RUBBER GLOVES, CONDOMS, DIAPHRAGMS, BALLOONS, SOCKS, OR UNDERWEAR?NO LATEX ALLERGY : HAVE YOU EVER DEVELOPED ANY TYPE OF REACTION DURING OR AFTER DENTAL APPOINTMENT, VAGINAL/RECTAL EXAMINATION, SURGICAL PROCEDURE, OR ANY OTHER EXPOSURE?NO LATEX RISK : HAVE YOU EVER HAD ANY DIFFICULTY BREATHING OR HIVES AFTER EATING OR HANDLING ANY FRUITS, OR VEGETABLES; SUCH KIWI, BANANAS, STONE FRUITS, OR CHESTNUTSNO LATEX RISK : DO YOU HAVE A PREVIOUS PERSONAL HISTORY OF MORE THAN NINE SURGERIES, SPINA BIFIDA, OR REPEATED CATHERIZATIONS? NO LATEX RISK : ARE YOU FREQUENTLY EXPOSED TO LATEX PRODUCTS IN YOUR OCCUPATION?NO DATE ASKED : 01/03/2019 ADVANCE DIRECTIVE ADVANCE DIRECTIVE DISCUSSED WITH PATIENT:YES HCP - SHARLENE BOND (SON) LATTER-DAY [id number] UAT[employer]IN LANGUAGE LANGUAGES SPOKEN:INDONESIAN DOMESTIC VIOLENCE DO YOU FEEL SAFE IN YOUR ENVIRONMENT?YES MARITAL STATUS: DOMESTIC PARTNER. ALCOHOL SCREENING DID YOU HAVE A DRINK CONTAINING ALCOHOL IN THE PAST YEAR?YES HOW OFTEN DID YOU HAVE A DRINK CONTAINING ALCOHOL IN THE PAST YEAR?MONTHLY OR LESS (1 POINT) POINTS1 INTERPRETATIONNEGATIVE RECREATIONAL DRUG USE DRUG USE?NO LEARNING BARRIERS / SPECIAL NEEDS BARRIERS TO LEARNING?NO HEARING IMPAIRED?NO VISION IMPAIRED?YES :CORRECTIVE LENSES COGNITIVELY IMPAIRED?NO READINESS TO LEARN?YES LEARNING PREFERENCES?NO LEARNING CAPABILITIES PRESENT?YES EMOTIONAL BARRIERS?NO SPECIAL DEVICES?YES :CANE VOLUNTEER SERVICES COORDINATOR NEEDED?NO REVIEWED WITH PT 03/18/18 0913 BVREVIEWED WITH PT 09/20/18 1047 BVREVIEWED WITH PATIENT 11/15/18 1508 JS01/03/19 REVIEWED WITH PT. AD. HOSPITALIZATION/MAJOR DIAGNOSTIC PROCEDURE PNEUMONIA 06/2015 KNEE REPLACEMENTS GI BLEEDING REVIEW OF SYSTEMS REVIEWED BY: PROVIDER: LALIT CUELLO-Sridhar . CONSTITUTIONAL: ANY CHANGE IN YOUR MEDICAL CONDITION? YES, JOSEPH . CHILLS NO . FEVER NO . INFECTION: DO YOU HAVE NEW INFECTIONS? NO . DO YOU HAVE HISTORY OF MRSA? NO . MUSCULOSKELETAL: ANY NEW PATTERNS OF PAIN OR NUMBNESS? NO . GASTROENTEROLOGY: ANY NEW CHANGE IN BOWEL CONTROL? NO . GENITOURINARY: ANY NEW CHANGE IN BLADDER CONTROL? NO . IS THERE A CHANCE YOU COULD BE ? NO . HEMATOLOGY/LYMPH: DO YOU TAKE ANY BLOOD THINNERS? (FOR EXAMPLE- COUMADIN, PLAVIX, AGGRENOX, PLATEL, PRADAXA, OR XARELTO) YES, PLAVIX AND PRADAXA . WHEN WAS YOUR LAST DOSE? DATE: TIME:01/03/19 0800 . NEUROLOGY: HAVE YOU FALLEN IN THE PAST 12 MONTHS? NO . ANY NEW EXTREMITY NUMBNESS OR WEAKNESS? NO . CARDIOLOGY: DO YOU HAVE A PACEMAKER OR DEFIBRILLATOR? NO . RESPIRATORY: HAVE YOU BEEN SICK IN THE PAST WEEK? NO . FEVER NO . FLU LIKE SYMPTOMS? NO . COUGH NO . INTEGUMENTARY: DO YOU HAVE ANY RASHES OR OPEN SORES? NO . ALLERGIC/IMMUNO: ARE YOU ALLERGIC TO IV DYE? NO . ANY NEW ALLERGIES? NO . PSYCHIATRIC: DO YOU HAVE THOUGHTS OF HURTING YOURSELF OR SOMEONE ELSE? NO . ARE YOU ABUSED, NEGLECTED, OR IN AN UNSAFE ENVIRONMENT? NO . ENDOCRINOLOGY: ARE YOU DIABETIC? NO . OTHER: DO YOU NEED ANY PRESCRIPTIONS? YES . IF YES, PLEASE LIST: CODEINE, CYMBALTA, TIZANIDINE . ANY NEW PROBLEMS WITH YOUR MEDICATIONS? NO . WHEN DID YOU LAST EAT? ____ . WHEN DID YOU LAST DRINK? ____ . WHAT DID YOU LAST DRINK? ____ . NAME OF PERSON DRIVING YOU HOME? ____ . DO YOU HAVE ANY OTHER QUESTIONS OR CONCERNS NO . VITAL SIGNS WT 194.8 LBS, HT 65 IN, BMI 32.41 INDEX, BP 134/65 MM HG, HR 61 /MIN, RR 16 /MIN, TEMP 97.6 F, OXYGEN SAT % 93%, SAFE IN ENV? (Y/N) Y, NA INITIALS AW 1347, REVIEWED BY: AD. EXAMINATION GENERAL EXAMINATION: GENERALNO ACUTE DISTRESS, WELL NOURISHED AND HYDRATED. PSYCHAPPROPRIATE MOOD AND AFFECT . LUNGS:CLEAR TO AUSCULTATION BILATERALLY, NO WHEEZES, RHONCHI, RALES. HEART:NO MURMURS, REGULAR RATE AND RHYTHM. ASSESSMENTS MYALGIA, OTHER SITE - M79.18 (PRIMARY) SPONDYLOSIS WITHOUT MYELOPATHY OR RADICULOPATHY, LUMBOSACRAL REGION - M47.817 TREATMENT MYALGIA, OTHER SITE CLINICAL NOTES: 73 YEAR OLD FEMALE IN FOR WORKMEN'S COMP FOLLOW UP. DISCUSSED DENIAL OF TPI WITH PATIENT. PT DISCUSSED WITH PATIENT AND SHE STATES IT WAS UNHELPFUL IN THE PAST. GIVEN PRESENTING SYMPTOMS AND RESULTS OF PHYSICAL EXAMINATION RECOMMENDED CONTINUATION OF CODEINE WITH FOLLOW UP IN 2 MONTHS. PATIENT HAS EXPRESSED UNDERSTANDING OF AND WAS IN AGREEMENT WITH TREATMENT PLAN. GIVEN TIME TO ASK QUESTIONS AND EXPRESS CONCERNS., ISTOP REGISTRY REVIEWED AND DEMONSTRATES COMPLLIANCE. (REF __#[id number] ) BRINGS IN MEDICATIONS WHICH IS APPROPRIATE FOR WHAT WAS DISPENSED. RECENT URINE TOXICOLOGY REVIEWED. NO UNAUTHORIZED MEDICATIONS. NO ILLICIT SUBSTANCES AND PRESCRIBED MEDICATIONS WERE PRESENT. , RISKS AND BENEFITS OF NARCOTIC/OPIOD MEDICATIONS WERE REVIEWED WITH PATIENT - THIS INCLUDES BUT IS NOT LIMITED TO RISK OF DEPENDANCE/DEVELOPMENT OF ADDICTION, MOOD DISTURBANCE AND DEPRESSION, OSTEOPOROSIS, HORMONAL AND LABIDAL CHANGES, RESPIRATORY DEPRESSION AND . PATIENT IS ADVISED NOT TO DRIVE OR DRINK ALCOHOL WHILE ON THESE MEDICATIONS. OTHERS REFILL CODEINE SULFATE TABLET, 15 MG, 1 TABLET NEEDED, ORALLY CODE D CHRONIC PAIN, EVERY 6 HRS PRN FOR PAIN MDD2, 90 DAYS, 120, REFILLS 0, NOTES: NEVER GOT REFILL CYMBALTA _, 60 MG, 1 CAP, PO, BID, 30 DAYS, 60 REFILL TIZANIDINE HCL TABLET, 4 MG, 1 TABLET NEEDED, ORALLY, BEFORE BEDTIME FOR SPASMS AND PAIN, 90 DAY(S), 90, REFILLS 0 PROCEDURES PN WORKMANS' COMP OPINION IN YOUR OPINION, WAS THE INCIDENT THAT THE PATIENT DESCRIBED THE COMPETENT MEDICAL CAUSE OF THIS INJURY/ILLNESS? YES ARE THE PATIENT'S COMPLAINTS CONSISTENT WITH HIS/HER HISTORY OF THE INJURY/ILLNESS? YES IS THE PATIENT'S HISTORY OF THE INJURY/ILLNESS CONSISTENT WITH YOUR OBJECTIVE FINDING? YES WHAT IS THE PERCENTAGE OF TEMPORARY IMPAIRMENT? MODERATE TO MARKED = 66.7% IS THE PATIENT WORKING? NO DOCTOR ON SITE: CATALINA CASAS MD DISPOSITION & COMMUNICATION FOLLOW UP 2 MONTHS (REASON: W/C) ELECTRONICALLY SIGNED BY KHUSHBOO CROWDER ON 01/04/2019 AT 08:52 AM EDT DISCLAIMER : THIS IS A VISIT SUMMARY EXTRACTED FROM THE [employer] CHART. IT IS NOT A COPY OF THE [employer] PROGRESS NOTE. LINA
== END ==
LOC: M PAIN 13:30
PROVIDERS: ATTEND Family Medicine
DX: M79.18 Myalgia, other site (principal); M47.817 Spondylosis without myelopathy or radiculopathy, lumbosacral region; Z86.73 Personal history of transient ischemic attack (TIA), and cerebral infarction without residual deficits; I25.10 Atherosclerotic heart disease of native coronary artery without angina pectoris; Z95.5 Presence of coronary angioplasty implant and graft; I10 Essential (primary) hypertension; J44.9 Chronic obstructive pulmonary disease, unspecified; D50.9 Iron deficiency anemia, unspecified; I48.91 Unspecified atrial fibrillation; G47.33 Obstructive sleep apnea (adult) (pediatric); Z96.653 Presence of artificial knee joint, bilateral; Z88.0 Allergy status to penicillin; Z88.6 Allergy status to analgesic agent; Z88.8 Allergy status to other drugs, medicaments and biological substances; Z79.01 Long term (current) use of anticoagulants; Z79.899 Other long term (current) drug therapy

== ENCOUNTER 2019-01-19 06:40 | Day surgery (SDC) | payer MEDICARE ==
[~2019-01-19] VITALS: Ht 165.1 cm; Wt 86.6 kg
[~2019-01-19 06:40] MED LIST changes: +METO1TAB7 PO; +PRAD150C6 PO
[2019-01-19] MEDS ORDERED: NS 1,000 ML IV ONE (07:00)
[2019-01-19] MEDS ORDERED: METOPROLOL 5 MG/5 ML VIAL As Ordered ONE (07:34)
[2019-01-19] MEDS ORDERED: LIDOCAINE 2% INJ 100 MG/5 ML SDV (FOR ANES.) As Ordered ONE (07:37)
[2019-01-19] MEDS ORDERED: PROPOFOL 200 MG/20 ML VIAL As Ordered ONE ×2 (07:37→08:00)
--- NOTE | 2019-01-19 07:48 | ROOR ---
Patient Name: Lucy Cuevas Procedure Date: 01/19/2019 7:33 AM Date of : 1945 Age: 73 Room: [facility] Gender: Female Note Status: Finalized Procedure: Upper Endoscopy + Biopsies Indications: Iron deficiency anemia Providers: German Souza MD Referring MD: MYLA HAN JR, MD Requesting Provider: Medicines: Monitored Anesthesia Care Complications: No immediate complications. Procedure: Pre-Anesthesia Assessment: - The heart rate, respiratory rate, oxygen saturations, blood pressure, adequacy of pulmonary ventilation, and response to care were monitored throughout the procedure. The Endoscope was introduced through the mouth, and advanced to the second part of duodenum. The upper GI endoscopy was accomplished without difficulty. The patient tolerated the procedure well. Findings: The Z-line was regular and was found 40 cm from the incisors. Mild portal hypertensive gastropathy was found in the entire examined stomach. Biopsies were taken with a cold forceps for Helicobacter pylori testing. The exam of the duodenum was otherwise normal. Impression: - Z-line regular, 40 cm from the incisors. - Portal hypertensive gastropathy. Biopsied. - The examination was otherwise normal. Recommendation: - Patient has a contact number available for emergencies. The signs and symptoms of potential delayed complications were discussed with the patient. Return to normal activities tomorrow. Written discharge instructions were provided to the patient. - High fiber diet. - Discharge patient to home. - Continue present medications. - Await pathology results. - Telephone GI clinic for pathology results in 1 week. - Return to referring physician. - The findings and recommendations were discussed with the patient's family. German Souza MD German Souza MD 01/19/2019 7:47:54 AM Electronically signed by German Souza MD Number of Addenda: 0 Note Initiated On: 01/19/2019 7:33 AM Estimated Blood Loss: Estimated blood loss: none.
--- NOTE | 2019-01-19 08:05 | ROOR ---
Patient Name: Lucy Cuevas Procedure Date: 01/19/2019 7:34 AM Date of : 1945 Age: 73 Room: [facility] Gender: Female Note Status: Finalized Procedure: Total Colonoscopy to Cecum + Cold Snare Polypectomy Indications: Iron deficiency anemia Providers: German Souza MD Referring MD: MYLA HAN JR, MD Requesting Provider: Medicines: Monitored Anesthesia Care Complications: No immediate complications. Procedure: Pre-Anesthesia Assessment: - The heart rate, respiratory rate, oxygen saturations, blood pressure, adequacy of pulmonary ventilation, and response to care were monitored throughout the procedure. The Colonoscope was introduced through the anus and advanced to the cecum, identified by appendiceal orifice and ileocecal valve. The colonoscopy was performed without difficulty. The patient tolerated the procedure well. The quality of the bowel preparation was good. Findings: The perianal and digital rectal examinations were normal. Non-bleeding internal hemorrhoids were found during retroflexion. The hemorrhoids were small and Grade I (internal hemorrhoids that do not prolapse). Multiple small and large-mouthed diverticula were found in the recto-sigmoid colon, sigmoid colon and descending colon. Three sessile polyps were found in the ascending colon. The polyps were small in size. These polyps were removed with a cold snare. Resection and retrieval were complete. The exam was otherwise without abnormality on direct and retroflexion views. Impression: - Non-bleeding internal hemorrhoids. - Diverticulosis in the recto-sigmoid colon, in the sigmoid colon and in the descending colon. - Three small polyps in the ascending colon, removed with a cold snare. Resected and retrieved. - The examination was otherwise normal on direct and retroflexion views. - The exam was otherwise normal to the cecum. Recommendation: - Patient has a contact number available for emergencies. The signs and symptoms of potential delayed complications were discussed with the patient. Return to normal activities tomorrow. Written discharge instructions were provided to the patient. - High fiber diet. - Discharge patient to home. - Continue present medications. - Await pathology results. - Telephone GI clinic for pathology results in 1 week. - Return to referring physician. - Check Portal Online for Path [email or web address] - Repeat colonoscopy for symptoms only. - Return to referring physician. - The findings and recommendations were discussed with the patient's family. German Souza MD German Souza MD 01/19/2019 8:05:29 AM Electronically signed by German Souza MD Number of Addenda: 0 Note Initiated On: 01/19/2019 7:34 AM Estimated Blood Loss: Estimated blood loss: none.
[2019-01-19 08:25] VITALS: BP 141/65
== END 2019-01-19 08:44 | disposition home or self-care (01) ==
LOC: M OPP 06:40
PROVIDERS: ATTEND Internal Medicine Gastroenterology
DX: K64.0 First degree hemorrhoids (principal); D12.2 Benign neoplasm of ascending colon; K57.30 Diverticulosis of large intestine without perforation or abscess without bleeding; D50.9 Iron deficiency anemia, unspecified; K76.6 Portal hypertension; K31.89 Other diseases of stomach and duodenum; I48.91 Unspecified atrial fibrillation; G47.30 Sleep apnea, unspecified; Z79.899 Other long term (current) drug therapy; Z88.0 Allergy status to penicillin; Z88.8 Allergy status to other drugs, medicaments and biological substances; Z87.891 Personal history of nicotine dependence; Z95.5 Presence of coronary angioplasty implant and graft

== ENCOUNTER → 2019-02-01 | Outpatient (REF) | payer MEDICARE ==
[2019-02-01 14:24] LABS: HEMATOCRIT 42.2 % (36.0-47.0); HEMOGLOBIN 13.3 g/dl (12.0-15.5); MEAN CORPUSCULAR HEMOGLOBIN 31.7 pg (27.0-33.0); MEAN CORPUSCULAR HGB CONC 31.5 g/dl (32.0-36.5); MEAN CORPUSCULAR VOLUME 100.5 fl (80.0-96.0); PLATELET COUNT, AUTOMATED 261 10^3/uL (150-450); WHITE BLOOD COUNT 5.3 10^3/uL (4.0-10.0)
== END ==
LOC: M LAB REF 13:29
PROVIDERS: ATTEND Internal Medicine Pulmonary Disease
DX: R06.00 Dyspnea, unspecified (principal)

== ENCOUNTER → 2019-06-27 | Outpatient (CLI) | payer MEDICARE ==
[~2019-06-27] MED LIST changes: -BUPR300T34 PO; +BUPR300T92 PO
[2019-06-27 17:47] LABS: BASO # 0.1 10^3/uL (0.0-0.2); BASO % 0.8 % (0.0-1.0); EOS # 0.6 10^3/uL (0.0-0.5); EOS % 7.4 % (0.0-3.0); HEMATOCRIT 44.5 % (36.0-47.0); HEMOGLOBIN 13.4 g/dl (12.0-15.5); LYMPH # 2.1 10^3/uL (1.5-5.0); LYMPH % 28.3 % (24.0-44.0); MEAN CORPUSCULAR HEMOGLOBIN 30.8 pg (27.0-33.0); MEAN CORPUSCULAR HGB CONC 30.1 g/dl (32.0-36.5); MEAN CORPUSCULAR VOLUME 102.3 fl (80.0-96.0); MONO # 0.5 10^3/uL (0.0-0.8); MONO % 7.2 % (0.0-5.0); NEUTROPHILS # 4.2 10^3/uL (1.5-8.5); NEUTROPHILS % 55.9 % (36.0-66.0); PLATELET COUNT, AUTOMATED 265 10^3/uL (150-450); RED BLOOD COUNT 4.35 10^6/uL (4.00-5.40); WHITE BLOOD COUNT 7.6 10^3/uL (4.0-10.0)
[2019-06-27 18:21] LABS: CALCIUM LEVEL 9.1 MG/DL (8.8-10.2); CREATININE FOR GFR 0.98 MG/DL (0.55-1.30); GLOMERULAR FILTRATION RATE 59.1 (>39); POTASSIUM SERUM 4.5 MEQ/L (3.5-5.1)
== END ==
LOC: M PLALAB 13:39
PROVIDERS: ATTEND Internal Medicine Cardiovascular Disease
DX: I50.32 Chronic diastolic (congestive) heart failure (principal); I25.10 Atherosclerotic heart disease of native coronary artery without angina pectoris

== ENCOUNTER → 2019-07-12 | Outpatient (CLI) | payer OTHER ==
--- NOTE | 2019-07-14 02:22 | ECWPNPC ---
PATIENT NAME: ADALBERTO BOND : 1945 GENDER: FEMALE VISIT DATE: 07/12/2019 DISCHARGE DATE: 07/12/19 1242 VISIT LOCKED DATE TIME: PHYSICIAN: JUDITH ORTEGA RESOURCE: JUDITH ORTEGA REASON FOR APPOINTMENT 1. W/C LOW BACK HISTORY OF PRESENT ILLNESS HISTORY OF PRESENT ILLNESS: PAIN THE PATIENT DESCRIBES THE PAIN... 73-YEAR-OLD FEMALE IN FOR WORKER'S COMP. CHRONIC PAIN FOLLOW-UP. SHE RATES HER PAIN CURRENTLY AT AN 8 OUT OF 10 AND DESCRIBES IT SORE, SHOOTING, ACHING, AND SHARP. 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 FALL RISK SCREENING: SCREENING :NO FALLS REPORTED IN THE LAST YEAR CURRENT MEDICATIONS TAKING LIDOCAINE 5 % PATCH 2 PATCHES DIRECTED EXTERNALLY AT BACK BEFORE BEDTIME TAKING URSODIOL 300 MG CAPSULE 1 TAB(S) ORALLY BID TAKING ALPRAZOLAM 0.25 MG TABLET 1 TABLET ORALLY TWICE DAILY NEEDED TAKING ATORVASTATIN CALCIUM 40 MG TABLET 1 TABLET ORALLY 3 TIMES A WEEK TAKING BUPROPION HCL ER (XL) 300 MG TABLET EXTENDED RELEASE 24 HOUR 1 TABLET IN THE MORNING ORALLY ONCE A DAY TAKING NORVASC 5 MG TABLET 1 TABLET ORALLY ONCE A DAY TAKING PREVACID 30 MG CAPSULE DELAYED RELEASE 1 CAPSULE ORALLY ONCE A DAY TAKING FUROSEMIDE 20 MG TABLET 1 TABLET ORALLY ONCE A DAY TAKING VITAMIN B-12 1000 MCG 1 GUMMY BEAR ORALLY ONCE A DAY TAKING METOPROLOL SUCCINATE ER 50 MG TABLET EXTENDED RELEASE 24 HOUR 1 TABLET ORALLY DAILY TAKING NYSTATIN POWDER POWDER NEEDED TAKING ADVAIR DISKUS 250-50 MCG/DOSE AEROSOL POWDER BREATH ACTIVATED 1 PUFF INHALATION TWICE A DAY, NOTES: UNSURE OF DOSE TAKING PRADAXA 75 MG CAPSULE 1 CAP ORALLY TWICE A DAY, NOTES: UNSURE OF DOSE TAKING CYMBALTA 60 MG _ 1 CAP PO BID TAKING TIZANIDINE HCL 4 MG TABLET 1 TABLET NEEDED ORALLY BEFORE BEDTIME FOR SPASMS AND PAIN TAKING CODEINE SULFATE 30 MG TABLET 1/2 TABLET ORALLY TWICE DAILY NEEDED FOR PAIN MDD 1 NOT-TAKING PLAVIX 75 MG TABLET 1 TABLET ORALLY ONCE A DAY NOT-TAKING IRON 325 (65 FE) MG TABLET 1 TABLET ORALLY ONCE A DAY NOT-TAKING CYMBALTA 30 MG CAPSULE DELAYED RELEASE PARTICLES 1 CAPSULE ORALLY WITH FOOD 1 CAP IN AM 2 CAP IN PM MDD3, NOTES: RAN OUT NOT-TAKING ASPIR-81 81 MG TABLET DELAYED RELEASE 1 TABLET ORALLY ONCE A DAY NOT-TAKING CALCIUM + D 600-200 MG-UNIT TABLET 1 TABLET WITH FOOD ORALLY DAILY NOT-TAKING ISOSORBIDE MONONITRATE ER 30 MG TABLET EXTENDED RELEASE 24 HOUR 1 TABLET IN THE MORNING ORALLY ONCE A DAY NOT-TAKING ALEVE PM 220-25 MG TABLET 1 TAB(S) ORALLY QHS NEEDED MEDICATION LIST REVIEWED AND RECONCILED WITH THE PATIENT PAST MEDICAL HISTORY 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 01/01/18 HIGH BLOOD PRESSURE COPD - STATES SHE DOESN'T HAVE ANEMIA PNEUMONIA ATRIAL FIBRILLATION LOW BACK PAIN JOSEPH - USES CPAP MYALGIA ALLERGIES PENICILLIN (FOR ALLERGIES USE ONLY): ANAPHYLAXIS - ALLERGY VIOXX (FOR ALLERGY USE ONLY): ANGIOEDEMA - SIDE EFFECTS LYRIC INHIBITOR (FOR ALLERGIES USE ONLY): ANAPHYLAXIS - SIDE EFFECTS NSAIDS/NAPROXYN: GI BLEED - CONTRAINDICATION SURGICAL HISTORY RIGHT KNEE REPLACEMENT 09/2009 LEFT KNEE REPLACEMENT 01/2010 CARDIAC STENT PLACED 01/01/18 INSERTABLE CONTROL PANEL TESTER 07/2018 FAMILY HISTORY FATHER: , ATHROSCLEROSIS, STROKE, DIAGNOSED WITH UNSPECIFIED CEREBRAL ARTERY OCCLUSION WITH CEREBRAL INFARCTION MOTHER: , KIDNEY CANCER, OTHER MALIGNANT NEOPLASM OF UNSPECIFIED SITE 8 BROTHER(S) , 5 SISTER(S) - HEALTHY. 2 SON(S) - HEALTHY. SEVERAL SIBLINGS-HEART DISEASE. SOCIAL HISTORY GENERAL: TOBACCO USE ARE YOU A:NONSMOKER PAIN CLINIC PFS, CLERGY, PUBLIC HEALTH REFERRALS PFS REFERRAL NEEDED?NO CLERGY REFERRAL NEEDED?NO PUBLIC HEALTH REFERRAL NEEDED?NO WAS THE PROVIDER NOTIFIED OF ANY PERTINENT INFO? N/A HAS THE PATIENT BEEN EDUCATED REGARDING HIS/HER PLAN OF CARE?YES HAS THE PATIENT BEEN EDUCATED REGARDING PAIN, THE RISK FOR PAIN, THE IMPORTANCE OF EFFECTIVE PAIN MANAGEMENT, AND THE PAIN ASSESSMENT PROCESS?YES LATEX QUESTIONNAIRE LATEX ALLERGY : HAVE YOU EVER DEVELOPED ANY TYPE OF REACTION AFTER HANDLING LATEX PRODUCTS SUCH RUBBER GLOVES, CONDOMS, DIAPHRAGMS, BALLOONS, SOCKS, OR UNDERWEAR?NO LATEX ALLERGY : HAVE YOU EVER DEVELOPED ANY TYPE OF REACTION DURING OR AFTER DENTAL APPOINTMENT, VAGINAL/RECTAL EXAMINATION, SURGICAL PROCEDURE, OR ANY OTHER EXPOSURE?NO DATE ASKED : 01/03/2019 LATEX RISK : HAVE YOU EVER HAD ANY DIFFICULTY BREATHING OR HIVES AFTER EATING OR HANDLING ANY FRUITS, OR VEGETABLES; SUCH KIWI, BANANAS, STONE FRUITS, OR CHESTNUTSNO LATEX RISK : DO YOU HAVE A PREVIOUS PERSONAL HISTORY OF MORE THAN NINE SURGERIES, SPINA BIFIDA, OR REPEATED CATHERIZATIONS? NO LATEX RISK : ARE YOU FREQUENTLY EXPOSED TO LATEX PRODUCTS IN YOUR OCCUPATION?NO ADVANCE DIRECTIVE ADVANCE DIRECTIVE DISCUSSED WITH PATIENT:YES HCP - SHARLENE BOND (SON) CONGREGATION [id number] ALEVISM LANGUAGE LANGUAGES SPOKEN:BENGALI DOMESTIC VIOLENCE DO YOU FEEL SAFE IN YOUR ENVIRONMENT?YES MARITAL STATUS: DOMESTIC PARTNER. 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 ADREVIEWED WITH PATIENT 07/12/2019 1200 NLJ. HOSPITALIZATION/MAJOR DIAGNOSTIC PROCEDURE PNEUMONIA 06/2015 KNEE REPLACEMENTS GI BLEEDING REVIEW OF SYSTEMS REVIEWED BY: PROVIDER: LALIT GUDINO . CONSTITUTIONAL: ANY CHANGE IN YOUR MEDICAL CONDITION? YES- ATRIAL FIBRILLATION, HAS A BIO MONITOR INSERTED . CHILLS NO . FEVER NO . INFECTION: DO YOU HAVE NEW INFECTIONS? NO . DO YOU HAVE HISTORY OF MRSA? NO . MUSCULOSKELETAL: ANY NEW PATTERNS OF PAIN OR NUMBNESS? NO . GASTROENTEROLOGY: ANY NEW CHANGE IN BOWEL CONTROL? NO . GENITOURINARY: ANY NEW CHANGE IN BLADDER CONTROL? NO . IS THERE A CHANCE YOU COULD BE ? NO . HEMATOLOGY/LYMPH: DO YOU TAKE ANY BLOOD THINNERS? (FOR EXAMPLE- COUMADIN, PLAVIX, AGGRENOX, PLATEL, PRADAXA, OR XARELTO) YES- PRADAXA . WHEN WAS YOUR LAST DOSE? DATE:07/12/2019 TIME: 0830 . NEUROLOGY: HAVE YOU FALLEN IN THE PAST 12 MONTHS? YES- STATES SHE FELL 3-4 WEEKS AGO, NO INJURIES, NO MEDICAL CARE RECEIVED . ANY NEW EXTREMITY NUMBNESS OR WEAKNESS? NO . CARDIOLOGY: DO YOU HAVE A PACEMAKER OR DEFIBRILLATOR? YES- HAS A BIO MONITOR INSERTED . RESPIRATORY: HAVE YOU BEEN SICK IN THE PAST WEEK? NO . FEVER NO . FLU LIKE SYMPTOMS? NO . COUGH NO . INTEGUMENTARY: DO YOU HAVE ANY RASHES OR OPEN SORES? NO . ALLERGIC/IMMUNO: ARE YOU ALLERGIC TO IV DYE? NO . ANY NEW ALLERGIES? NO . PSYCHIATRIC: DO YOU HAVE THOUGHTS OF HURTING YOURSELF OR SOMEONE ELSE? NO . ARE YOU ABUSED, NEGLECTED, OR IN AN UNSAFE ENVIRONMENT? NO . ENDOCRINOLOGY: ARE YOU DIABETIC? NO . OTHER: DO YOU NEED ANY PRESCRIPTIONS? YES . IF YES, PLEASE LIST: ALL . ANY NEW PROBLEMS WITH YOUR MEDICATIONS? NO . WHEN DID YOU LAST EAT? ____ . WHEN DID YOU LAST DRINK? ____ . WHAT DID YOU LAST DRINK? ____ . NAME OF PERSON DRIVING YOU HOME? ____ . DO YOU HAVE ANY OTHER QUESTIONS OR CONCERNS YES- ANNOYED WITH CONSTANT PAIN AND NO RELIEF . VITAL SIGNS WT 194.6 LBS, HT 65 IN, BMI 32.38 INDEX, BP 152/67 MM HG, HR 56 /MIN, RR 18 /MIN, TEMP 97.1 F, OXYGEN SAT % 96%, SAFE IN ENV? (Y/N) YES, REVIEWED BY: MORE. EXAMINATION GENERAL EXAMINATION: GENERALNO ACUTE DISTRESS, WELL NOURISHED AND HYDRATED. PSYCHAPPROPRIATE MOOD AND AFFECT . LUNGS:CLEAR TO AUSCULTATION BILATERALLY, NO WHEEZES, RHONCHI, RALES. HEART:NO MURMURS, REGULAR RATE AND RHYTHM. 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 CHRONIC PAIN FOLLOW-UP. GIVEN PRESENTING SYMPTOMS AND RESULTS OF PHYSICAL EXAMINATION RECOMMENDED PATIENT START TAKING HER TIZANIDINE TWICE DAILY AND THAT WE RESTART HER TYLENOL WITH CODEINE PATIENT STATES SHE WAS UNAWARE THAT SHE HAD TO REQUEST REFILLS FOR HER MEDICATION. PATIENT HAS EXPRESSED UNDERSTANDING OF AND WAS IN AGREEMENT WITH TREATMENT PLAN. GIVEN TIME TO ASK QUESTIONS AND EXPRESS CONCERNS., ISTOP REGISTRY REVIEWED AND DEMONSTRATES COMPLLIANCE. (REF # [id number] ) BRINGS IN MEDICATIONS WHICH IS APPROPRIATE FOR WHAT WAS DISPENSED. RECENT URINE TOXICOLOGY REVIEWED. NO UNAUTHORIZED MEDICATIONS. NO ILLICIT SUBSTANCES AND PRESCRIBED MEDICATIONS WERE PRESENT. PROCEDURES PN WORKMANS' COMP OPINION IN YOUR OPINION, WAS THE INCIDENT THAT THE PATIENT DESCRIBED THE COMPETENT MEDICAL CAUSE OF THIS INJURY/ILLNESS? YES ARE THE PATIENT'S COMPLAINTS CONSISTENT WITH HIS/HER HISTORY OF THE INJURY/ILLNESS? YES IS THE PATIENT'S HISTORY OF THE INJURY/ILLNESS CONSISTENT WITH YOUR OBJECTIVE FINDING? YES WHAT IS THE PERCENTAGE OF TEMPORARY IMPAIRMENT? MODERATE TO MARKED = 66.7% IS THE PATIENT WORKING? NO DOCTOR ON SITE: CATALINA CASAS MD DISPOSITION & COMMUNICATION FOLLOW UP 2 MONTHS (REASON: W/C BACK PAIN ) ELECTRONICALLY SIGNED BY KHUSHBOO CROWDER ON 07/13/2019 AT 08:51 AM EST DISCLAIMER : THIS IS A VISIT SUMMARY EXTRACTED FROM THE [employer] CHART. IT IS NOT A COPY OF THE [employer] PROGRESS NOTE. LINA
== END ==
LOC: M PAIN 11:15
PROVIDERS: ATTEND Family Medicine
DX: M47.817 Spondylosis without myelopathy or radiculopathy, lumbosacral region (principal); G89.29 Other chronic pain; I10 Essential (primary) hypertension; J44.9 Chronic obstructive pulmonary disease, unspecified; G47.33 Obstructive sleep apnea (adult) (pediatric); Z96.653 Presence of artificial knee joint, bilateral; Z88.0 Allergy status to penicillin; Z88.6 Allergy status to analgesic agent; Z88.8 Allergy status to other drugs, medicaments and biological substances; Z79.01 Long term (current) use of anticoagulants; Z79.899 Other long term (current) drug therapy

== ENCOUNTER → 2019-07-15 | Outpatient (REF) | payer MEDICARE ==
[2019-07-15 12:58] LABS: TOTAL PROTEIN 7.8 GM/DL (6.4-8.2)
== END ==
LOC: M LAB REF 12:28
PROVIDERS: ATTEND Internal Medicine
DX: D47.2 Monoclonal gammopathy (principal); D50.9 Iron deficiency anemia, unspecified

== ENCOUNTER → 2019-10-17 | Outpatient (CLI) | payer OTHER ==
--- NOTE | 2019-10-19 03:54 | ECWPNPC ---
PATIENT NAME: ADALBERTO BOND : 1945 GENDER: FEMALE VISIT DATE: 10/17/2019 DISCHARGE DATE: 10/17/19 1109 VISIT LOCKED DATE TIME: PHYSICIAN: JUDITH ORTEGA RESOURCE: JUDITH ORTEGA REASON FOR APPOINTMENT 1. W/C LOW BACK HISTORY OF PRESENT ILLNESS HISTORY OF PRESENT ILLNESS: PAIN THE PATIENT DESCRIBES THE PAINDURING THE LAST MONTH SEVERITY - PAIN SCORE OF7/10 LOCATIONSMID BACK, LOWER BACK QUALITYBURNING, THROBBING, SHOOTING DURATIONCONTINUOUS, CONSTANT, ALL DAY PAIN IS INCREASED BY:ACTIVITIES, PROLONGED STANDING PAIN IS DECREASED BY:USE OF PAIN MEDICATIONS 74-YEAR-OLD FEMALE IN FOR WORKER'S COMP. CHRONIC PAIN FOLLOW-UP. SHE RATES HER PAIN CURRENTLY AT A 7 OUT OF 10 AND DESCRIBES IT BURNING, THROBBING, AND SHOOTING. PATIENT HAS BEEN ON CODEINE TO HELP MANAGE HER PAIN AND ADMITS TODAY THAT SHE FEELS THIS IS INEFFECTIVE. 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 FALL RISK SCREENING: SCREENING :NO FALLS REPORTED IN THE LAST YEAR CURRENT MEDICATIONS TAKING LIDOCAINE 5 % PATCH 2 PATCHES DIRECTED EXTERNALLY AT BACK BEFORE BEDTIME TAKING URSODIOL 300 MG CAPSULE 1 TAB(S) ORALLY BID TAKING ALPRAZOLAM 0.25 MG TABLET 1 TABLET ORALLY TWICE DAILY NEEDED TAKING ATORVASTATIN CALCIUM 40 MG TABLET 1 TABLET ORALLY 3 TIMES A WEEK TAKING BUPROPION HCL ER (XL) 300 MG TABLET EXTENDED RELEASE 24 HOUR 1 TABLET IN THE MORNING ORALLY ONCE A DAY TAKING NORVASC 5 MG TABLET 1 TABLET ORALLY ONCE A DAY TAKING PREVACID 30 MG CAPSULE DELAYED RELEASE 1 CAPSULE ORALLY ONCE A DAY TAKING FUROSEMIDE 20 MG TABLET 1 TABLET ORALLY ONCE A DAY TAKING VITAMIN B-12 1000 MCG 1 GUMMY BEAR ORALLY ONCE A DAY TAKING METOPROLOL SUCCINATE ER 50 MG TABLET EXTENDED RELEASE 24 HOUR 1 TABLET ORALLY DAILY TAKING NYSTATIN POWDER POWDER NEEDED TAKING ADVAIR DISKUS 250-50 MCG/DOSE AEROSOL POWDER BREATH ACTIVATED 1 PUFF INHALATION TWICE A DAY, NOTES: UNSURE OF DOSE TAKING PRADAXA 75 MG CAPSULE 1 CAP ORALLY TWICE A DAY, NOTES: UNSURE OF DOSE TAKING CYMBALTA 60 MG _ 1 CAP PO BID TAKING TIZANIDINE HCL 4 MG TABLET 1 TABLET NEEDED ORALLY BEFORE BEDTIME FOR SPASMS AND PAIN TAKING CODEINE SULFATE 30 MG TABLET 1/2 TABLET ORALLY TWICE DAILY NEEDED FOR PAIN MDD 1 NOT-TAKING PLAVIX 75 MG TABLET 1 TABLET ORALLY ONCE A DAY NOT-TAKING IRON 325 (65 FE) MG TABLET 1 TABLET ORALLY ONCE A DAY NOT-TAKING CYMBALTA 30 MG CAPSULE DELAYED RELEASE PARTICLES 1 CAPSULE ORALLY WITH FOOD 1 CAP IN AM 2 CAP IN PM MDD3, NOTES: RAN OUT NOT-TAKING ASPIR-81 81 MG TABLET DELAYED RELEASE 1 TABLET ORALLY ONCE A DAY NOT-TAKING CALCIUM + D 600-200 MG-UNIT TABLET 1 TABLET WITH FOOD ORALLY DAILY NOT-TAKING ISOSORBIDE MONONITRATE ER 30 MG TABLET EXTENDED RELEASE 24 HOUR 1 TABLET IN THE MORNING ORALLY ONCE A DAY NOT-TAKING ALEVE PM 220-25 MG TABLET 1 TAB(S) ORALLY QHS NEEDED MEDICATION LIST REVIEWED AND RECONCILED WITH THE PATIENT PAST MEDICAL HISTORY 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 01/01/18 HIGH BLOOD PRESSURE COPD - STATES SHE DOESN'T HAVE ANEMIA PNEUMONIA ATRIAL FIBRILLATION LOW BACK PAIN JOSEPH - USES CPAP MYALGIA ALLERGIES PENICILLIN (FOR ALLERGIES USE ONLY): ANAPHYLAXIS - ALLERGY VIOXX (FOR ALLERGY USE ONLY): ANGIOEDEMA - SIDE EFFECTS LYRIC INHIBITOR (FOR ALLERGIES USE ONLY): ANAPHYLAXIS - SIDE EFFECTS NSAIDS/NAPROXYN: GI BLEED - CONTRAINDICATION SURGICAL HISTORY RIGHT KNEE REPLACEMENT 09/2009 LEFT KNEE REPLACEMENT 01/2010 CARDIAC STENT PLACED 01/01/18 INSERTABLE RESERVATIONS CLERK 07/2018 FAMILY HISTORY FATHER: , ATHROSCLEROSIS, STROKE, DIAGNOSED WITH UNSPECIFIED CEREBRAL ARTERY OCCLUSION WITH CEREBRAL INFARCTION MOTHER: , KIDNEY CANCER, OTHER MALIGNANT NEOPLASM OF UNSPECIFIED SITE 8 BROTHER(S) , 5 SISTER(S) - HEALTHY. 2 SON(S) - HEALTHY. SEVERAL SIBLINGS-HEART DISEASE. SOCIAL HISTORY GENERAL: TOBACCO USE ARE YOU A:NONSMOKER LATEX QUESTIONNAIRE LATEX ALLERGY : HAVE YOU EVER DEVELOPED ANY TYPE OF REACTION AFTER HANDLING LATEX PRODUCTS SUCH RUBBER GLOVES, CONDOMS, DIAPHRAGMS, BALLOONS, SOCKS, OR UNDERWEAR?NO LATEX ALLERGY : HAVE YOU EVER DEVELOPED ANY TYPE OF REACTION DURING OR AFTER DENTAL APPOINTMENT, VAGINAL/RECTAL EXAMINATION, SURGICAL PROCEDURE, OR ANY OTHER EXPOSURE?NO DATE ASKED : 01/03/2019 LATEX RISK : HAVE YOU EVER HAD ANY DIFFICULTY BREATHING OR HIVES AFTER EATING OR HANDLING ANY FRUITS, OR VEGETABLES; SUCH KIWI, BANANAS, STONE FRUITS, OR CHESTNUTSNO LATEX RISK : DO YOU HAVE A PREVIOUS PERSONAL HISTORY OF MORE THAN NINE SURGERIES, SPINA BIFIDA, OR REPEATED CATHERIZATIONS? NO LATEX RISK : ARE YOU FREQUENTLY EXPOSED TO LATEX PRODUCTS IN YOUR OCCUPATION?NO ALCOHOL SCREENING DID YOU HAVE A DRINK CONTAINING ALCOHOL IN THE PAST YEAR?YES HOW OFTEN DID YOU HAVE A DRINK CONTAINING ALCOHOL IN THE PAST YEAR?MONTHLY OR LESS (1 POINT) POINTS1 INTERPRETATIONNEGATIVE RECREATIONAL DRUG USE DRUG USE?NO WORSHIP [id number] [employer] LANGUAGE LANGUAGES SPOKEN:IRANIAN LEARNING BARRIERS / SPECIAL NEEDS BARRIERS TO LEARNING?NO HEARING IMPAIRED?NO VISION IMPAIRED?YES COGNITIVELY IMPAIRED?NO :CORRECTIVE LENSES READINESS TO LEARN?YES LEARNING PREFERENCES?NO LEARNING CAPABILITIES PRESENT?YES EMOTIONAL BARRIERS?NO SPECIAL DEVICES?YES :CANE FACILITIES ADMINISTRATOR NEEDED?NO DOMESTIC VIOLENCE DO YOU FEEL SAFE IN YOUR ENVIRONMENT?YES MARITAL STATUS: DOMESTIC PARTNER. PAIN CLINIC PFS, CLERGY, PUBLIC HEALTH REFERRALS PFS REFERRAL NEEDED?NO CLERGY REFERRAL NEEDED?NO PUBLIC HEALTH REFERRAL NEEDED?NO WAS THE PROVIDER NOTIFIED OF ANY PERTINENT INFO? N/A HAS THE PATIENT BEEN EDUCATED REGARDING HIS/HER PLAN OF CARE?YES HAS THE PATIENT BEEN EDUCATED REGARDING PAIN, THE RISK FOR PAIN, THE IMPORTANCE OF EFFECTIVE PAIN MANAGEMENT, AND THE PAIN ASSESSMENT PROCESS?YES ADVANCE DIRECTIVE ADVANCE DIRECTIVE DISCUSSED WITH PATIENT:YES HCP - SHARLENE BOND ([facility]) HOSPITALIZATION/MAJOR DIAGNOSTIC PROCEDURE PNEUMONIA 06/2015 KNEE REPLACEMENTS GI BLEEDING REVIEW OF SYSTEMS REVIEWED BY: PROVIDER: LALIT ORTEGA MACHINE OR MACHINERY MECHANIC-C . CONSTITUTIONAL: ANY CHANGE IN YOUR MEDICAL CONDITION? NO . CHILLS NO . FEVER NO . INFECTION: DO YOU HAVE NEW INFECTIONS? NO . DO YOU HAVE HISTORY OF MRSA? NO . MUSCULOSKELETAL: ANY NEW PATTERNS OF PAIN OR NUMBNESS? NO . GASTROENTEROLOGY: ANY NEW CHANGE IN BOWEL CONTROL? NO . GENITOURINARY: ANY NEW CHANGE IN BLADDER CONTROL? NO . IS THERE A CHANCE YOU COULD BE ? NO . HEMATOLOGY/LYMPH: DO YOU TAKE ANY BLOOD THINNERS? (FOR EXAMPLE- COUMADIN, PLAVIX, AGGRENOX, PLATEL, PRADAXA, OR XARELTO) YES . WHEN WAS YOUR LAST DOSE? DATE:10/17/19 TIME:7AM . NEUROLOGY: HAVE YOU FALLEN IN THE PAST 12 MONTHS? NO . ANY NEW EXTREMITY NUMBNESS OR WEAKNESS? NO . CARDIOLOGY: DO YOU HAVE A PACEMAKER OR DEFIBRILLATOR? NO . RESPIRATORY: HAVE YOU BEEN SICK IN THE PAST WEEK? NO . FEVER NO . FLU LIKE SYMPTOMS? NO . COUGH NO . INTEGUMENTARY: DO YOU HAVE ANY RASHES OR OPEN SORES? NO . ALLERGIC/IMMUNO: ARE YOU ALLERGIC TO IV DYE? NO . ANY NEW ALLERGIES? NO . PSYCHIATRIC: DO YOU HAVE THOUGHTS OF HURTING YOURSELF OR SOMEONE ELSE? NO . ARE YOU ABUSED, NEGLECTED, OR IN AN UNSAFE ENVIRONMENT? NO . ENDOCRINOLOGY: ARE YOU DIABETIC? NO . OTHER: DO YOU NEED ANY PRESCRIPTIONS? NO . IF YES, PLEASE LIST: ____ . ANY NEW PROBLEMS WITH YOUR MEDICATIONS? NO . WHEN DID YOU LAST EAT? ____ . WHEN DID YOU LAST DRINK? ____ . WHAT DID YOU LAST DRINK? ____ . NAME OF PERSON DRIVING YOU HOME? ____ . DO YOU HAVE ANY OTHER QUESTIONS OR CONCERNS YES, DISCUSS TIZANIDINE MAKES PT FEEL TIRED AND WEAK . 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 EXAMINATION GENERAL EXAMINATION: GENERALNO ACUTE DISTRESS, WELL NOURISHED AND HYDRATED. PSYCHAPPROPRIATE MOOD AND AFFECT . LUNGS:CLEAR TO AUSCULTATION BILATERALLY, NO WHEEZES, RHONCHI, RALES. HEART:NO MURMURS, IRREGULAR RHYTHM HX OF AFIB. 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 GIVEN PRESENTING SYMPTOMS RECOMMEND STOPPING CODEINE AND STARTING HYDROCODONE WITH FOLLOW-UP IN CLINIC IN 2 MONTHS. PATIENT HAS EXPRESSED UNDERSTANDING OF AND WAS IN AGREEMENT WITH TREATMENT PLAN. GIVEN TIME TO ASK QUESTIONS AND EXPRESS CONCERNS. , ISTOP REGISTRY REVIEWED AND DEMONSTRATES COMPLLIANCE. (REF # [id number] ) BRINGS IN MEDICATIONS WHICH IS APPROPRIATE FOR WHAT WAS DISPENSED. RECENT URINE TOXICOLOGY REVIEWED. NO UNAUTHORIZED MEDICATIONS. NO ILLICIT SUBSTANCES AND PRESCRIBED MEDICATIONS WERE PRESENT. OTHERS NOTES: HYDROCODONE COMBINATION PRODUCTS MATERIAL WAS PRINTED,HYDROCODONE MATERIAL WAS PRINTED. PROCEDURES PN WORKMANS' COMP OPINION IN YOUR OPINION, WAS THE INCIDENT THAT THE PATIENT DESCRIBED THE COMPETENT MEDICAL CAUSE OF THIS INJURY/ILLNESS? YES ARE THE PATIENT'S COMPLAINTS CONSISTENT WITH HIS/HER HISTORY OF THE INJURY/ILLNESS? YES IS THE PATIENT'S HISTORY OF THE INJURY/ILLNESS CONSISTENT WITH YOUR OBJECTIVE FINDING? YES WHAT IS THE PERCENTAGE OF TEMPORARY IMPAIRMENT? MODERATE TO MARKED = 66.7% IS THE PATIENT WORKING? NO DOCTOR ON SITE: CATALINA CASAS MD PROCEDURE CODES FA211 ESTABILISHED PATIENT [facility] CHARGE DISPOSITION & COMMUNICATION FOLLOW UP 2 MONTHS (REASON: WORKERS COMP BACK PAIN) ELECTRONICALLY SIGNED BY KHUSHBOO CROWDER ON 10/18/2019 AT 08:05 AM EDT DISCLAIMER : THIS IS A VISIT SUMMARY EXTRACTED FROM THE [employer] CHART. IT IS NOT A COPY OF THE [employer] PROGRESS NOTE. LINA
== END ==
LOC: M PAIN 10:15
PROVIDERS: ATTEND Family Medicine
DX: M47.817 Spondylosis without myelopathy or radiculopathy, lumbosacral region (principal); G89.29 Other chronic pain; Z86.73 Personal history of transient ischemic attack (TIA), and cerebral infarction without residual deficits; I10 Essential (primary) hypertension; J44.9 Chronic obstructive pulmonary disease, unspecified; G47.33 Obstructive sleep apnea (adult) (pediatric); M79.10 Myalgia, unspecified site; Z96.653 Presence of artificial knee joint, bilateral; Z88.0 Allergy status to penicillin; Z88.6 Allergy status to analgesic agent; Z88.8 Allergy status to other drugs, medicaments and biological substances; Z79.01 Long term (current) use of anticoagulants; Z79.899 Other long term (current) drug therapy

== ENCOUNTER → 2019-11-17 | Outpatient (CLI) | payer MEDICARE, OTHER ==
[2019-11-17 16:31] LABS: HEMOGLOBIN 13.8 g/dl (12.0-15.5); MEAN CORPUSCULAR HEMOGLOBIN 31.4 pg (27.0-33.0); MEAN CORPUSCULAR HGB CONC 32.1 g/dl (32.0-36.5); MEAN CORPUSCULAR VOLUME 97.9 fl (80.0-96.0); PLATELET COUNT, AUTOMATED 295 10^3/uL (150-450); RED BLOOD COUNT 4.39 10^6/uL (4.00-5.40); WHITE BLOOD COUNT 6.1 10^3/uL (4.0-10.0)
[2019-11-17 16:57] LABS: BLOOD UREA NITROGEN 21 MG/DL (7-18); CALCIUM LEVEL 9.6 MG/DL (8.8-10.2); CARBON DIOXIDE LEVEL 31 MEQ/L (21-32); CHLORIDE LEVEL 102 MEQ/L (98-107); CREATININE FOR GFR 0.85 MG/DL (0.55-1.30); GLOMERULAR FILTRATION RATE > 60.0 (>39); GLUCOSE, FASTING 85 MG/DL (70-100); POTASSIUM SERUM 4.5 MEQ/L (3.5-5.1); SODIUM LEVEL 137 MEQ/L (136-145)
== END ==
LOC: M PLALAB 14:02
PROVIDERS: ATTEND Internal Medicine Cardiovascular Disease
DX: Z79.82 Long term (current) use of aspirin (principal); I48.91 Unspecified atrial fibrillation; Z79.899 Other long term (current) drug therapy

== ENCOUNTER → 2020-02-21 | Outpatient (REF) | payer MEDICARE ==
[~2020-02-21] MED LIST changes: +CALC-212 PO; -CALC600T7 PO
== END ==
LOC: M LAB REF 11:37
PROVIDERS: ATTEND Physician Assistant Medical
DX: N39.0 Urinary tract infection, site not specified (principal)

== ENCOUNTER → 2020-04-03 | Outpatient (CLI) | payer OTHER ==
--- NOTE | 2020-04-04 23:47 | ECWPNPC ---
PATIENT NAME: ADALBERTO BOND : 1945 GENDER: FEMALE VISIT DATE: 04/03/2020 DISCHARGE DATE: 04/03/20 1037 VISIT LOCKED DATE TIME: PHYSICIAN: JUDITH ORTEGA RESOURCE: JUDITH ORTEGA REASON FOR APPOINTMENT 1. WC-LBP HISTORY OF PRESENT ILLNESS GENERAL: - 74-YEAR-OLD FEMALE IN FOR CHRONIC PAIN FOLLOW-UP. PATIENT WOULD LIKE TO DISCUSS MEDICATION ALTERNATIVES TO HELP TREAT HER PAIN SHE DOES NOT WANT TO TAKE OPIATES FOR FEAR OF ADDICTION. SHE RATES HER PAIN CURRENTLY AT A 4 OUT OF 10 AND DESCRIBES IT BURNING, STABBING, THROBBING, AND SHOOTING. 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 FALL RISK SCREENING: SCREENING :NO FALLS REPORTED IN THE LAST YEAR PAIN SCREENING: PATIENT HAS A COMPLAINT OF ACUTE OR CHRONIC PAIN :YES LOCATION OF PAIN:LOW BACK INTENSITY OF PAIN (SCALE OF 1 TO 10):4 WHAT DOES YOUR PAIN FEEL LIKE:BURNING, STABBING, THROBBING, SHOOTING DURATION:CONSTANT, AWAKENS FROM SLEEP PAIN IS INCREASED BY:ACTIVITIES, PROLONGED STANDING, OTHERS PROLONG SITTING INCREASES PAIN. PAIN IS DECREASED BY:USE OF PAIN MEDICATIONS NURSING NOTE: -. PAIN CENTER INTAKE QUESTIONS: DO YOU HAVE A HISTORY OF MRSA? :NO DO YOU TAKE A BLOOD THINNERS? :YES PRADAXA DO YOU HAVE ANY BLEEDING DISORDERS? :NO ANY NEW NUMBNESS OR WEAKNESS IN YOUR LEGS OR ARMS? :NO ANY PACEMAKER,DEFIBRILLATOR, OR DORSAL COLUMN STIMULATOR? :NO DO YOU HAVE ANY RASHES OR OPEN SORES? :NO ARE YOU ALLERGIC TO IV DYE? :NO ARE YOU DIABETIC? :NO ANY NEW PROBLEMS WITH YOUR MEDICATIONS? :YES PATIENT ADMITS TO NOT USING HER NARCOTIC PAIN MEDICATIONS. PATIENT STATES SHE IS AFRAID OF IT AND DOESN'T WANT TO GET ADDICTED TO IT. PATIENT WOULD LIKE TO DISCUSS OPTIONS TO PAIN MANAGMENT THAT IS NOT A NARCOTIC. HAVE YOU RECEIVED A VACCINE IN THE PAST 30 DAYS? :NO DO YOU PLAN TO RECEIVE A VACCINE IN THE NEXT 21 DAYS? :NO DO YOU NEED ANY PRESCRIPTION? :YES CYMBALTA DO YOU TAKE ANY IMMUNOSUPPRESSIVE MEDICATIONS? :NO IS THERE A CHANCE YOU COULD BE ? :NO ARE YOU BREAST FEEDING? :NO CURRENT MEDICATIONS TAKING URSODIOL 300 MG CAPSULE 1 TAB(S) ORALLY BID TAKING ALPRAZOLAM 0.25 MG TABLET 1 TABLET ORALLY TWICE DAILY NEEDED TAKING ATORVASTATIN CALCIUM 40 MG TABLET 1 TABLET ORALLY 3 TIMES A WEEK TAKING BUPROPION HCL ER (XL) 300 MG TABLET EXTENDED RELEASE 24 HOUR 1 TABLET IN THE MORNING ORALLY ONCE A DAY TAKING NORVASC 5 MG TABLET 1 TABLET ORALLY ONCE A DAY TAKING PREVACID 30 MG CAPSULE DELAYED RELEASE 1 CAPSULE ORALLY ONCE A DAY TAKING FUROSEMIDE 20 MG TABLET 1 TABLET ORALLY ONCE A DAY TAKING VITAMIN B-12 1000 MCG 1 GUMMY BEAR ORALLY ONCE A DAY TAKING METOPROLOL SUCCINATE ER 50 MG TABLET EXTENDED RELEASE 24 HOUR 1 TABLET ORALLY DAILY TAKING NYSTATIN POWDER POWDER NEEDED TAKING ADVAIR DISKUS 250-50 MCG/DOSE AEROSOL POWDER BREATH ACTIVATED 1 PUFF INHALATION TWICE A DAY, NOTES: UNSURE OF DOSE TAKING PRADAXA 75 MG CAPSULE 1 CAP ORALLY TWICE A DAY, NOTES: UNSURE OF DOSE TAKING CYMBALTA 60 MG _ 1 CAP PO BID TAKING TIZANIDINE HCL 4 MG TABLET 1 TABLET NEEDED ORALLY BEFORE BEDTIME FOR SPASMS AND PAIN TAKING LIDOCAINE 4 % PATCH 2 PATCHES DIRECTED EXTERNALLY BEFORE BEDTIME TAKING IRON 325 (65 FE) MG TABLET 1 TABLET ORALLY ONCE A DAY TAKING ASPIR-81 81 MG TABLET DELAYED RELEASE 1 TABLET ORALLY ONCE A DAY TAKING CALCIUM + D 600-200 MG-UNIT TABLET 1 TABLET WITH FOOD ORALLY DAILY TAKING ISOSORBIDE MONONITRATE ER 30 MG TABLET EXTENDED RELEASE 24 HOUR 1 TABLET IN THE MORNING ORALLY ONCE A DAY NOT-TAKING NORCO 5-325 MG TABLET 1 TABLET NEEDED ORALLY DAILY NEEDED NOT-TAKING PLAVIX 75 MG TABLET 1 TABLET ORALLY ONCE A DAY NOT-TAKING CYMBALTA 30 MG CAPSULE DELAYED RELEASE PARTICLES 1 CAPSULE ORALLY WITH FOOD 1 CAP IN AM 2 CAP IN PM MDD3, NOTES: RAN OUT NOT-TAKING ALEVE PM 220-25 MG TABLET 1 TAB(S) ORALLY QHS NEEDED MEDICATION LIST REVIEWED AND RECONCILED WITH THE PATIENT PAST MEDICAL HISTORY 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 01/01/18 HIGH BLOOD PRESSURE COPD - STATES SHE DOESN'T HAVE ANEMIA PNEUMONIA ATRIAL FIBRILLATION LOW BACK PAIN JOSEPH - USES CPAP MYALGIA ALLERGIES PENICILLIN (FOR ALLERGIES USE ONLY): ANAPHYLAXIS - ALLERGY VIOXX (FOR ALLERGY USE ONLY): ANGIOEDEMA - SIDE EFFECTS LYRIC INHIBITOR (FOR ALLERGIES USE ONLY): ANAPHYLAXIS - SIDE EFFECTS NSAIDS/NAPROXYN: GI BLEED - CONTRAINDICATION SURGICAL HISTORY RIGHT KNEE REPLACEMENT 09/2009 LEFT KNEE REPLACEMENT 01/2010 CARDIAC STENT PLACED 01/01/18 INSERTABLE SEAT TRIMMER 07/2018 FAMILY HISTORY FATHER: , ATHROSCLEROSIS, STROKE, DIAGNOSED WITH UNSPECIFIED CEREBRAL ARTERY OCCLUSION WITH CEREBRAL INFARCTION MOTHER: , KIDNEY CANCER, OTHER MALIGNANT NEOPLASM OF UNSPECIFIED SITE 8 BROTHER(S) , 5 SISTER(S) - HEALTHY. 2 SON(S) - HEALTHY. SEVERAL SIBLINGS-HEART DISEASE. SOCIAL HISTORY GENERAL: TOBACCO USE ARE YOU A:NONSMOKER LATEX QUESTIONNAIRE LATEX ALLERGY : HAVE YOU EVER DEVELOPED ANY TYPE OF REACTION AFTER HANDLING LATEX PRODUCTS SUCH RUBBER GLOVES, CONDOMS, DIAPHRAGMS, BALLOONS, SOCKS, OR UNDERWEAR?NO LATEX ALLERGY : HAVE YOU EVER DEVELOPED ANY TYPE OF REACTION DURING OR AFTER DENTAL APPOINTMENT, VAGINAL/RECTAL EXAMINATION, SURGICAL PROCEDURE, OR ANY OTHER EXPOSURE?NO LATEX RISK : HAVE YOU EVER HAD ANY DIFFICULTY BREATHING OR HIVES AFTER EATING OR HANDLING ANY FRUITS, OR VEGETABLES; SUCH KIWI, BANANAS, STONE FRUITS, OR CHESTNUTSNO LATEX RISK : DO YOU HAVE A PREVIOUS PERSONAL HISTORY OF MORE THAN NINE SURGERIES, SPINA BIFIDA, OR REPEATED CATHERIZATIONS? NO LATEX RISK : ARE YOU FREQUENTLY EXPOSED TO LATEX PRODUCTS IN YOUR OCCUPATION?NO DATE ASKED : 04/03/2020 ALCOHOL SCREENING DID YOU HAVE A DRINK CONTAINING ALCOHOL IN THE PAST YEAR?YES HOW OFTEN DID YOU HAVE A DRINK CONTAINING ALCOHOL IN THE PAST YEAR?MONTHLY OR LESS (1 POINT) POINTS1 INTERPRETATIONNEGATIVE RECREATIONAL DRUG USE DRUG USE?NO CONFUCIANISM [id number] SABIANISM LANGUAGE LANGUAGES SPOKEN:EAST TIMORESE LEARNING BARRIERS / SPECIAL NEEDS BARRIERS TO LEARNING?NO HEARING IMPAIRED?NO VISION IMPAIRED?YES COGNITIVELY IMPAIRED?NO :CORRECTIVE LENSES READINESS TO LEARN?YES LEARNING PREFERENCES?NO LEARNING CAPABILITIES PRESENT?YES EMOTIONAL BARRIERS?NO SPECIAL DEVICES?YES :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 PAIN CLINIC PFS, CLERGY, PUBLIC HEALTH REFERRALS PFS REFERRAL NEEDED?NO CLERGY REFERRAL NEEDED?NO PUBLIC HEALTH REFERRAL NEEDED?NO WAS THE PROVIDER NOTIFIED OF ANY PERTINENT INFO? N/A HAS THE PATIENT BEEN EDUCATED REGARDING HIS/HER PLAN OF CARE?YES HAS THE PATIENT BEEN EDUCATED REGARDING PAIN, THE RISK FOR PAIN, THE IMPORTANCE OF EFFECTIVE PAIN MANAGEMENT, AND THE PAIN ASSESSMENT PROCESS?YES ADVANCE DIRECTIVE ADVANCE DIRECTIVE DISCUSSED WITH PATIENT:YES HCP - SHARLENE BOND ([facility]) HOSPITALIZATION/MAJOR DIAGNOSTIC PROCEDURE PNEUMONIA 06/2015 KNEE REPLACEMENTS GI BLEEDING REVIEW OF SYSTEMS CONSTITUTIONAL: ANY RECENT FEVER NO . CHILLS NO . WEIGHT CHANGE OF UNKNOWN REASONS NO . GASTROENTEROLOGY: NEW UNEXPLAINABLE CHANGES IN BOWEL CONTROL NO . CONSTIPATION NO . GENITOURINARY: ANY NEW CHANGE IN BLADDER CONTROL? NO . NEUROLOGY: NEW ONSET DIZZINESS OR NEUROLOGICAL CHANGES NOT MENTIONED NO . NEW NUMBNESS OR PAIN PATTERNS NOT MENTIONED AND PERTINENT TO TODAY'S VISIT NO . CARDIOLOGY: NEW CHEST PRESSURE NO . NEW CHEST PAIN NO . RESPIRATORY: UNEXPLAINABLE COUGH NO . NEW SHORTNESS OF BREATH NO . VITAL SIGNS WT 202.6 LBS, HT 65 IN, BMI 33.71 INDEX, BP 140/66 MM HG, HR 59 /MIN, RR 18 /MIN, TEMP 97.3 F, OXYGEN SAT % 97%, SAFE IN ENV? (Y/N) YES, NA INITIALS AW 0956, REVIEWED BY: DM. EXAMINATION GENERAL EXAMINATION: GENERALNO ACUTE DISTRESS, WELL NOURISHED AND HYDRATED. PSYCHAPPROPRIATE MOOD AND AFFECT . LUNGS:CLEAR TO AUSCULTATION BILATERALLY, NO WHEEZES, RHONCHI, RALES. HEART:NO MURMURS, REGULAR RATE AND RHYTHM. ASSESSMENTS SPONDYLOSIS WITHOUT MYELOPATHY OR RADICULOPATHY, LUMBOSACRAL REGION - M47.817 (PRIMARY) TREATMENT SPONDYLOSIS WITHOUT MYELOPATHY OR RADICULOPATHY, LUMBOSACRAL REGION START GABAPENTIN CAPSULE, 100 MG, 1 CAPSULE, ORALLY, ONCE A DAY, 30 DAY(S), 30 REFILL CYMBALTA _, 60 MG, 1 CAP, PO, ONCE DAILY, 90 DAYS, 90 NOTES: WORKER'S COMP. CHRONIC PAIN FOLLOW-UP. GIVEN PRESENTING SYMPTOMS RECOMMEND STARTING GABAPENTIN 100 MG TWICE A DAY WITH FOLLOW-UP IN ONE MONTH TO DETERMINE EFFICACY OF TREATMENT. PATIENT HAS EXPRESSED UNDERSTANDING OF AND WAS IN AGREEMENT WITH TREATMENT PLAN. GIVEN TIME TO ASK QUESTIONS AND EXPRESS CONCERNS. CLINICAL NOTES: DISCUSSED CARE PLAN WITH PATIENT, PATIENT VERBALIZES UNDERSTANDING. . PROCEDURES PN WORKMANS' COMP OPINION IN YOUR OPINION, WAS THE INCIDENT THAT THE PATIENT DESCRIBED THE COMPETENT MEDICAL CAUSE OF THIS INJURY/ILLNESS? YES ARE THE PATIENT'S COMPLAINTS CONSISTENT WITH HIS/HER HISTORY OF THE INJURY/ILLNESS? YES IS THE PATIENT'S HISTORY OF THE INJURY/ILLNESS CONSISTENT WITH YOUR OBJECTIVE FINDING? YES WHAT IS THE PERCENTAGE OF TEMPORARY IMPAIRMENT? MODERATE TO MARKED = 66.7% IS THE PATIENT WORKING? NO DOCTOR ON SITE: CATALINA CASAS MD PROCEDURE CODES FA211 ESTABILISHED PATIENT [facility] FAC[facility] CHARGE DISPOSITION & COMMUNICATION FOLLOW UP 4 WEEKS (REASON: NEW MEDICATION) ELECTRONICALLY SIGNED BY KHUSHBOO CROWDER ON 04/04/2020 AT 08:40 AM EST DISCLAIMER : THIS IS A VISIT SUMMARY EXTRACTED FROM THE [employer] CHART. IT IS NOT A COPY OF THE [employer] PROGRESS NOTE. LINA
== END ==
LOC: M PAIN 09:45
PROVIDERS: ATTEND Family Medicine
DX: M47.817 Spondylosis without myelopathy or radiculopathy, lumbosacral region (principal); K74.5 Biliary cirrhosis, unspecified; I25.10 Atherosclerotic heart disease of native coronary artery without angina pectoris; J44.9 Chronic obstructive pulmonary disease, unspecified; D64.9 Anemia, unspecified; I48.91 Unspecified atrial fibrillation; G47.33 Obstructive sleep apnea (adult) (pediatric); R03.0 Elevated blood-pressure reading, without diagnosis of hypertension; M79.18 Myalgia, other site; Z79.82 Long term (current) use of aspirin; Z79.899 Other long term (current) drug therapy; Z88.0 Allergy status to penicillin; Z88.8 Allergy status to other drugs, medicaments and biological substances; Z88.6 Allergy status to analgesic agent; Z95.5 Presence of coronary angioplasty implant and graft; Z86.73 Personal history of transient ischemic attack (TIA), and cerebral infarction without residual deficits

== ENCOUNTER → 2020-05-30 | Outpatient (REF) | payer MEDICARE ==
[2020-05-30 16:54] LABS: IMMUNOGLOBULIN G 1410 MG/DL (681-1648); TOTAL PROTEIN 7.8 GM/DL (6.4-8.2)
[2020-05-31 12:45] LABS: ALBUMIN 3.98 GM/DL (3.29-5.55); ALPHA-1-GLOBULIN % 5.6 % (2.9-4.9); ALPHA-1-GLOBULINS 0.44 GM/DL (0.17-0.41); ALPHA-2-GLOBULINS 0.94 GM/DL (0.42-0.99); ALPHA-2-GLOBULINS % 12.1 % (7.1-11.8); BETA-1-GLOBULINS 0.59 GM/DL (0.28-0.60); BETA-1-GLOBULINS % 7.6 % (4.7-7.2); BETA-2-GLOBULINS 0.46 GM/DL (0.19-0.55); BETA-2-GLOBULINS % 5.9 % (3.2-6.5); GAMMA GLOBULIN % 17.8 % (11.1-18.8); GAMMA GLOBULINS 1.39 GM/DL (0.65-1.58)
== END ==
LOC: M LAB REF 16:18
PROVIDERS: ATTEND Internal Medicine
DX: D47.2 Monoclonal gammopathy (principal)

== ENCOUNTER → 2020-08-29 | Outpatient (CLI) | payer OTHER ==
[~2020-08-29] MED LIST changes: +NAPR-849 PO; -NAPR250T4 PO
--- NOTE | 2020-08-31 02:38 | ECWPNPC ---
PATIENT NAME: ADALBERTO BOND : 1945 GENDER: FEMALE VISIT DATE: 08/29/2020 DISCHARGE DATE: 08/29/20 1121 VISIT LOCKED DATE TIME: PHYSICIAN: JUDITH ORTEGA RESOURCE: JUDITH ORTEGA REASON FOR APPOINTMENT 1. W/C LOW BACK HISTORY OF PRESENT ILLNESS DEPRESSION SCREENING: PHQ-9 LITTLE INTEREST OR PLEASURE IN DOING THINGSSEVERAL DAYS FEELING DOWN, DEPRESSED, OR HOPELESSSEVERAL DAYS TROUBLE FALLING OR STAYING ASLEEP, OR SLEEPING TOO MUCHSEVERAL DAYS FEELING TIRED OR HAVING LITTLE ENERGYSEVERAL DAYS POOR APPETITE OR OVEREATING NOT AT ALL FEELING BAD ABOUT YOURSELF-OR THAT YOU ARE A FAILURE OR HAVE LET YOURSELF OR YOUR FAMILY DOWN SEVERAL DAYS TROUBLE CONCENTRATING ON THINGS, SUCH READING THE NEWSPAPER OR WATCHING TELEVISION NOT AT ALL MOVING OR SPEAKING SO SLOWLY THAT OTHER PEOPLE COULD HAVE NOTICED. OR THE OPPOSITE- BEING SO FIDGETY OR RESTLESS THAT YOU HAVE BEEN MOVING AROUND A LOT MORE THAN USUALNOT AT ALL THOUGHTS THAT YOU WOULD BE BETTER OFF , OR OF HURTING YOURSELF IN SOME WAY?NOT AT ALL TOTAL SCORE:5 INTERPRETATIONMILD DEPRESSION PHQ-2 (2015 EDITION) LITTLE INTEREST OR PLEASURE IN DOING THINGS?SEVERAL DAYS FEELING DOWN, DEPRESSED, OR HOPELESS?SEVERAL DAYS TOTAL SCORE2 75-YEAR-OLD FEMALE IN FOR WORKER'S COMP. CHRONIC PAIN FOLLOW-UP. PATIENT RATES HER PAIN CURRENTLY AT A 7 OUT OF 10 AND DESCRIBES IT BURNING, AND SHARP. SHE FEELS HER MEDICATIONS ARE HELPFUL AND DENIES MED SIDE EFFECTS AT THIS TIME. 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 GENERAL: -. FALL RISK SCREENING: SCREENING : ONE FALL REPORTED IN THE LAST YEAR WITHOUT INJURY. PAIN SCREENING: PATIENT HAS A COMPLAINT OF ACUTE OR CHRONIC PAIN :YES LOCATION OF PAIN:NECK, MID BACK, LOW BACK INTENSITY OF PAIN (SCALE OF 1 TO 10):7 WHAT DOES YOUR PAIN FEEL LIKE:BURNING, SHARP DURATION:CONTINOUS, CONSTANT PAIN IS INCREASED BY:ACTIVITIES PAIN IS DECREASED BY:USE OF PAIN MEDICATIONS NURSING NOTE: -. PAIN CENTER INTAKE QUESTIONS: DO YOU HAVE A HISTORY OF MRSA? :NO DO YOU TAKE A BLOOD THINNERS? :YES PRADAXA FOR A-FIB DO YOU HAVE ANY BLEEDING DISORDERS? :NO ANY NEW NUMBNESS OR WEAKNESS IN YOUR LEGS OR ARMS? :YES HANDS ANY PACEMAKER,DEFIBRILLATOR, OR DORSAL COLUMN STIMULATOR? :YES IMPLANTED HEART MONITOR DO YOU HAVE ANY RASHES OR OPEN SORES? :NO ARE YOU ALLERGIC TO IV DYE? :NO ARE YOU DIABETIC? :NO ANY NEW PROBLEMS WITH YOUR MEDICATIONS? :NO HAVE YOU RECEIVED A VACCINE IN THE PAST 30 DAYS? :YES IF SO WHAT VACCINE AND WHEN? 2ND COVID VACCINE 08/07/20 DO YOU PLAN TO RECEIVE A VACCINE IN THE NEXT 21 DAYS? :NO DO YOU NEED ANY PRESCRIPTION? :YES CYMBALTA, JANESSA, LIDO PATCH, TIZANIDINE PT REQUESTING 90 DAY SUPPLY DO YOU TAKE ANY IMMUNOSUPPRESSIVE MEDICATIONS? :YES CIHROSIS TX'D URSODIOL NOT AN IMMUNOSUPPRESSANT DO YOU HAVE ANY KIDNEY OR LIVER DISEASE? :YES CIRRHOSIS IS THERE A CHANCE YOU COULD BE ? :NO ARE YOU BREAST FEEDING? :NO CURRENT MEDICATIONS TAKING URSODIOL 300 MG CAPSULE 1 TAB(S) ORALLY BID TAKING ALPRAZOLAM 0.25 MG TABLET 1 TABLET ORALLY TWICE DAILY NEEDED TAKING ATORVASTATIN CALCIUM 40 MG TABLET 1 TABLET ORALLY 3 TIMES A WEEK TAKING BUPROPION HCL ER (XL) 300 MG TABLET EXTENDED RELEASE 24 HOUR 1 TABLET IN THE MORNING ORALLY ONCE A DAY TAKING NORVASC 5 MG TABLET 1 TABLET ORALLY ONCE A DAY TAKING PREVACID 30 MG CAPSULE DELAYED RELEASE 1 CAPSULE ORALLY ONCE A DAY TAKING FUROSEMIDE 20 MG TABLET 1 TABLET ORALLY ONCE A DAY TAKING VITAMIN B-12 1000 MCG 1 GUMMY BEAR ORALLY ONCE A DAY TAKING METOPROLOL SUCCINATE ER 50 MG TABLET EXTENDED RELEASE 24 HOUR 1 TABLET ORALLY DAILY TAKING NYSTATIN POWDER POWDER NEEDED TAKING ADVAIR DISKUS 250-50 MCG/DOSE AEROSOL POWDER BREATH ACTIVATED 1 PUFF INHALATION TWICE A DAY, NOTES: UNSURE OF DOSE TAKING PRADAXA 75 MG CAPSULE 1 CAP ORALLY TWICE A DAY, NOTES: UNSURE OF DOSE TAKING TIZANIDINE HCL 4 MG TABLET 1 TABLET NEEDED ORALLY BEFORE BEDTIME FOR SPASMS AND PAIN TAKING LIDOCAINE 4 % PATCH 2 PATCHES DIRECTED EXTERNALLY BEFORE BEDTIME TAKING IRON 325 (65 FE) MG TABLET 1 TABLET ORALLY ONCE A DAY TAKING ASPIR-81 81 MG TABLET DELAYED RELEASE 1 TABLET ORALLY ONCE A DAY TAKING CALCIUM + D 600-200 MG-UNIT TABLET 1 TABLET WITH FOOD ORALLY DAILY TAKING ISOSORBIDE MONONITRATE ER 30 MG TABLET EXTENDED RELEASE 24 HOUR 1 TABLET IN THE MORNING ORALLY ONCE A DAY TAKING CYMBALTA 60 MG _ 1 CAP PO ONCE DAILY TAKING GABAPENTIN 100 MG CAPSULE 1 CAPSULE ORALLY TWICE DAILY NOT-TAKING NORCO 5-325 MG TABLET 1 TABLET NEEDED ORALLY DAILY NEEDED NOT-TAKING PLAVIX 75 MG TABLET 1 TABLET ORALLY ONCE A DAY NOT-TAKING CYMBALTA 30 MG CAPSULE DELAYED RELEASE PARTICLES 1 CAPSULE ORALLY WITH FOOD 1 CAP IN AM 2 CAP IN PM MDD3, NOTES: RAN OUT NOT-TAKING ALEVE PM 220-25 MG TABLET 1 TAB(S) ORALLY QHS NEEDED MEDICATION LIST REVIEWED AND RECONCILED WITH THE PATIENT PAST MEDICAL HISTORY 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 01/01/18 HIGH BLOOD PRESSURE COPD - STATES SHE DOESN'T HAVE ANEMIA PNEUMONIA ATRIAL FIBRILLATION LOW BACK PAIN JOSEPH - USES CPAP MYALGIA ALLERGIES PENICILLIN (FOR ALLERGIES USE ONLY): ANAPHYLAXIS - ALLERGY VIOXX (FOR ALLERGY USE ONLY): ANGIOEDEMA - SIDE EFFECTS LYRIC INHIBITOR (FOR ALLERGIES USE ONLY): ANAPHYLAXIS - SIDE EFFECTS NSAIDS/NAPROXYN: GI BLEED - CONTRAINDICATION SOCIAL HISTORY GENERAL: TOBACCO USE ARE YOU A:NONSMOKER LATEX QUESTIONNAIRE LATEX ALLERGY : HAVE YOU EVER DEVELOPED ANY TYPE OF REACTION AFTER HANDLING LATEX PRODUCTS SUCH RUBBER GLOVES, CONDOMS, DIAPHRAGMS, BALLOONS, SOCKS, OR UNDERWEAR?NO LATEX ALLERGY : HAVE YOU EVER DEVELOPED ANY TYPE OF REACTION DURING OR AFTER DENTAL APPOINTMENT, VAGINAL/RECTAL EXAMINATION, SURGICAL PROCEDURE, OR ANY OTHER EXPOSURE?NO DATE ASKED : 04/03/2020 LATEX RISK : HAVE YOU EVER HAD ANY DIFFICULTY BREATHING OR HIVES AFTER EATING OR HANDLING ANY FRUITS, OR VEGETABLES; SUCH KIWI, BANANAS, STONE FRUITS, OR CHESTNUTSNO LATEX RISK : DO YOU HAVE A PREVIOUS PERSONAL HISTORY OF MORE THAN NINE SURGERIES, SPINA BIFIDA, OR REPEATED CATHERIZATIONS? NO LATEX RISK : ARE YOU FREQUENTLY EXPOSED TO LATEX PRODUCTS IN YOUR OCCUPATION?NO ALCOHOL SCREENING DID YOU HAVE A DRINK CONTAINING ALCOHOL IN THE PAST YEAR?YES HOW OFTEN DID YOU HAVE A DRINK CONTAINING ALCOHOL IN THE PAST YEAR?MONTHLY OR LESS (1 POINT) POINTS1 INTERPRETATIONNEGATIVE RECREATIONAL DRUG USE DRUG USE?NO BAPTISM [id number] [place]INDU LANGUAGE LANGUAGES SPOKEN:LIBERIAN LEARNING BARRIERS / SPECIAL NEEDS BARRIERS TO LEARNING?NO HEARING IMPAIRED?NO VISION IMPAIRED?YES COGNITIVELY IMPAIRED?NO :CORRECTIVE LENSES READINESS TO LEARN?YES LEARNING PREFERENCES?NO LEARNING CAPABILITIES PRESENT?YES EMOTIONAL BARRIERS?NO 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 - PFS REFERRAL NEEDED?NO CLERGY REFERRAL NEEDED?NO PUBLIC HEALTH REFERRAL NEEDED?NO WAS THE PROVIDER NOTIFIED OF ANY PERTINENT INFO? N/A HAS THE PATIENT BEEN EDUCATED REGARDING HIS/HER PLAN OF CARE?YES HAS THE PATIENT BEEN EDUCATED REGARDING PAIN, THE RISK FOR PAIN, THE IMPORTANCE OF EFFECTIVE PAIN MANAGEMENT, AND THE PAIN ASSESSMENT PROCESS?YES ADVANCE DIRECTIVE ADVANCE DIRECTIVE DISCUSSED WITH PATIENT:YES HCP - SHARLENE BOND ([facility]) REVIEW OF SYSTEMS CONSTITUTIONAL: ANY RECENT FEVER NO . CHILLS NO . WEIGHT CHANGE OF UNKNOWN REASONS NO . GASTROENTEROLOGY: NEW UNEXPLAINABLE CHANGES IN BOWEL CONTROL NO . CONSTIPATION NO . GENITOURINARY: ANY NEW CHANGE IN BLADDER CONTROL? NO . NEUROLOGY: NEW ONSET DIZZINESS OR NEUROLOGICAL CHANGES NOT MENTIONED NO . NEW NUMBNESS OR PAIN PATTERNS NOT MENTIONED AND PERTINENT TO TODAY'S VISIT NO . CARDIOLOGY: NEW CHEST PRESSURE NO . PATIENT DENIES NO . RESPIRATORY: UNEXPLAINABLE COUGH NO . NEW SHORTNESS OF BREATH NO . VITAL SIGNS WT 213.2 LBS, HT 65 IN, BMI 35.47 INDEX, BP 145/67 MM HG, HR 69 /MIN, RR 18 /MIN, TEMP 98..0, OXYGEN SAT % 94%, SAFE IN ENV? (Y/N) Y, NA INITIALS AW 1049, REVIEWED BY: EM. EXAMINATION GENERAL EXAMINATION: GENERALNO ACUTE DISTRESS, WELL NOURISHED AND HYDRATED. PSYCHAPPROPRIATE MOOD AND AFFECT . LUNGS:CLEAR TO AUSCULTATION BILATERALLY, NO WHEEZES, RHONCHI, RALES. HEART:NO MURMURS, REGULAR RATE AND RHYTHM. 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 CHRONIC PAIN FOLLOW-UP. GIVEN PRESENTING SYMPTOMS RECOMMENDED CONTINUATION OF CURRENT MEDICATION REGIMEN WITH FOLLOW-UP IN 3 MONTHS. PATIENT HAS EXPRESSED UNDERSTANDING OF AND WAS IN AGREEMENT WITH TREATMENT PLAN. GIVEN TIME TO ASK QUESTIONS AND EXPRESS CONCERNS. PROCEDURES PN WORKMANS' COMP OPINION IN YOUR OPINION, WAS THE INCIDENT THAT THE PATIENT DESCRIBED THE COMPETENT MEDICAL CAUSE OF THIS INJURY/ILLNESS? YES ARE THE PATIENT'S COMPLAINTS CONSISTENT WITH HIS/HER HISTORY OF THE INJURY/ILLNESS? YES IS THE PATIENT'S HISTORY OF THE INJURY/ILLNESS CONSISTENT WITH YOUR OBJECTIVE FINDING? YES WHAT IS THE PERCENTAGE OF TEMPORARY IMPAIRMENT? MODERATE TO MARKED = 66.7% IS THE PATIENT WORKING? NO DOCTOR ON SITE: CATALINA CASAS MD PROCEDURE CODES FA211 ESTABILISHED PATIENT [facility] CHARGE DISPOSITION & COMMUNICATION FOLLOW UP 3 MONTHS (REASON: LOW BACK PAIN ) ELECTRONICALLY SIGNED BY KHUSHBOO CROWDER ON 08/30/2020 AT 08:46 AM EDT DISCLAIMER : THIS IS A VISIT SUMMARY EXTRACTED FROM THE [employer] CHART. IT IS NOT A COPY OF THE [employer] PROGRESS NOTE. LINA
== END ==
LOC: M PAIN 10:45
PROVIDERS: ATTEND Family Medicine
DX: M47.817 Spondylosis without myelopathy or radiculopathy, lumbosacral region (principal); G89.29 Other chronic pain; J44.9 Chronic obstructive pulmonary disease, unspecified; D50.9 Iron deficiency anemia, unspecified; G47.33 Obstructive sleep apnea (adult) (pediatric); M79.10 Myalgia, unspecified site; Z88.0 Allergy status to penicillin; Z88.6 Allergy status to analgesic agent; Z88.8 Allergy status to other drugs, medicaments and biological substances; Z79.82 Long term (current) use of aspirin; Z79.899 Other long term (current) drug therapy

== ENCOUNTER → 2020-11-26 | Outpatient (CLI) | payer OTHER ==
--- NOTE | 2020-11-30 05:29 | ECWPNPC ---
PATIENT NAME: ADALBERTO BOND : 1945 GENDER: FEMALE VISIT DATE: 11/26/2020 DISCHARGE DATE: 11/26/20 1021 VISIT LOCKED DATE TIME: PHYSICIAN: JUDITH ORTEGA RESOURCE: JUDITH ORTEGA REASON FOR APPOINTMENT 1. LOW BACK PAIN HISTORY OF PRESENT ILLNESS GENERAL: HPI 75-YEAR-OLD FEMALE IN FOR CHRONIC PAIN FOLLOW-UP. SHE RATES HER PAIN CURRENTLY AT AN 8 OUT OF 10 AND DESCRIBES IT BURNING, CONTINUOUS, SHARP, AND THROBBING. PATIENT WOULD LIKE TO DISCUSS MEDICAL MARIJUANA TO HELP ALLEVIATE HER PAIN SYMPTOMS. DOI 01/05/2000. -. FALL RISK SCREENING: SCREENING ONE FALL REPORTED IN THE LAST YEAR. PAIN SCREENING: PATIENT HAS A COMPLAINT OF ACUTE OR CHRONIC PAIN :YES LOCATION OF PAIN:LOW BACK INTENSITY OF PAIN (SCALE OF 1 TO 10):8 WHAT DOES YOUR PAIN FEEL LIKE:BURNING, CONTINOUS, SHARP, THROBBING DURATION:CONTINOUS, AWAKENS FROM SLEEP PAIN IS INCREASED BY:ACTIVITIES, PROLONGED STANDING PAIN IS DECREASED BY:SITTING PAIN MEDS DO NOT SEEM TO HELP NURSING NOTE: -. PAIN CENTER INTAKE QUESTIONS: DO YOU HAVE A HISTORY OF MRSA? :NO DO YOU TAKE A BLOOD THINNERS? :YES PRADAXA FOR A-FIB DO YOU HAVE ANY BLEEDING DISORDERS? :NO ANY NEW NUMBNESS OR WEAKNESS IN YOUR LEGS OR ARMS? :YES HANDS ANY PACEMAKER,DEFIBRILLATOR, OR DORSAL COLUMN STIMULATOR? :YES IMPLANTED HEART MONITOR DO YOU HAVE ANY RASHES OR OPEN SORES? :NO ARE YOU ALLERGIC TO IV DYE? :NO ARE YOU DIABETIC? :NO ANY NEW PROBLEMS WITH YOUR MEDICATIONS? :NO HAVE YOU RECEIVED A VACCINE IN THE PAST 30 DAYS? :NO SECOND COVID VACCINATION 08/07/2020 DO YOU PLAN TO RECEIVE A VACCINE IN THE NEXT 21 DAYS? :NO DO YOU NEED ANY PRESCRIPTION? :YES CYMBALTA, JANESSA, LIDO PATCH, TIZANIDINE PT REQUESTING 90 DAY SUPPLY DO YOU TAKE ANY IMMUNOSUPPRESSIVE MEDICATIONS? :YES CIHROSIS TX'D URSODIOL NOT AN IMMUNOSUPPRESSANT DO YOU HAVE ANY KIDNEY OR LIVER DISEASE? :YES CIRRHOSIS IS THERE A CHANCE YOU COULD BE ? :NO ARE YOU BREAST FEEDING? :NO CURRENT MEDICATIONS TAKING URSODIOL 300 MG CAPSULE 1 TAB(S) ORALLY BID TAKING ALPRAZOLAM 0.25 MG TABLET 1 TABLET ORALLY TWICE DAILY NEEDED TAKING ATORVASTATIN CALCIUM 40 MG TABLET 1 TABLET ORALLY 3 TIMES A WEEK TAKING BUPROPION HCL ER (XL) 300 MG TABLET EXTENDED RELEASE 24 HOUR 1 TABLET IN THE MORNING ORALLY ONCE A DAY TAKING NORVASC 5 MG TABLET 1 TABLET ORALLY ONCE A DAY TAKING PREVACID 30 MG CAPSULE DELAYED RELEASE 1 CAPSULE ORALLY ONCE A DAY TAKING FUROSEMIDE 20 MG TABLET 1 TABLET ORALLY ONCE A DAY TAKING VITAMIN B-12 1000 MCG 1 GUMMY BEAR ORALLY ONCE A DAY TAKING METOPROLOL SUCCINATE ER 50 MG TABLET EXTENDED RELEASE 24 HOUR 1 TABLET ORALLY DAILY TAKING NYSTATIN POWDER POWDER NEEDED TAKING ADVAIR DISKUS 250-50 MCG/DOSE AEROSOL POWDER BREATH ACTIVATED 1 PUFF INHALATION TWICE A DAY, NOTES: UNSURE OF DOSE TAKING PRADAXA 75 MG CAPSULE 1 CAP ORALLY TWICE A DAY, NOTES: UNSURE OF DOSE TAKING IRON 325 (65 FE) MG TABLET 1 TABLET ORALLY ONCE A DAY TAKING ASPIR-81 81 MG TABLET DELAYED RELEASE 1 TABLET ORALLY ONCE A DAY TAKING CALCIUM + D 600-200 MG-UNIT TABLET 1 TABLET WITH FOOD ORALLY DAILY TAKING ISOSORBIDE MONONITRATE ER 30 MG TABLET EXTENDED RELEASE 24 HOUR 1 TABLET IN THE MORNING ORALLY ONCE A DAY TAKING TIZANIDINE HCL 4 MG TABLET 1 TABLET NEEDED ORALLY BEFORE BEDTIME FOR SPASMS AND PAIN TAKING CYMBALTA 60 MG _ 1 CAP PO ONCE DAILY TAKING GABAPENTIN 100 MG CAPSULE 1 CAPSULE ORALLY ONCE A DAY TAKING NORCO 5-325 MG TABLET 1 TABLET NEEDED ORALLY DAILY NEEDED TAKING PLAVIX 75 MG TABLET 1 TABLET ORALLY ONCE A DAY NOT-TAKING LIDOCAINE 4 % PATCH 2 PATCHES DIRECTED EXTERNALLY BEFORE BEDTIME NOT-TAKING CYMBALTA 30 MG CAPSULE DELAYED RELEASE PARTICLES 1 CAPSULE ORALLY WITH FOOD 1 CAP IN AM 2 CAP IN PM MDD3, NOTES: RAN OUT NOT-TAKING ALEVE PM 220-25 MG TABLET 1 TAB(S) ORALLY QHS NEEDED MEDICATION LIST REVIEWED AND RECONCILED WITH THE PATIENT PAST MEDICAL HISTORY 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 01/01/18 HIGH BLOOD PRESSURE COPD - STATES SHE DOESN'T HAVE ANEMIA PNEUMONIA ATRIAL FIBRILLATION LOW BACK PAIN JOSEPH - USES CPAP MYALGIA ALLERGIES PENICILLIN (FOR ALLERGIES USE ONLY): ANAPHYLAXIS - ALLERGY VIOXX (FOR ALLERGY USE ONLY): ANGIOEDEMA - SIDE EFFECTS LYRIC INHIBITOR (FOR ALLERGIES USE ONLY): ANAPHYLAXIS - SIDE EFFECTS NSAIDS/NAPROXYN: GI BLEED - CONTRAINDICATION FAMILY HISTORY FATHER: , ATHROSCLEROSIS, STROKE, DIAGNOSED WITH UNSPECIFIED CEREBRAL ARTERY OCCLUSION WITH CEREBRAL INFARCTION MOTHER: , KIDNEY CANCER, OTHER MALIGNANT NEOPLASM OF UNSPECIFIED SITE 8 BROTHER(S) , 5 SISTER(S) - HEALTHY. 2 SON(S) - HEALTHY. SEVERAL SIBLINGS-HEART DISEASE. 2 BROTHERS AND 1 SISTER ARE ALIVE. SOCIAL HISTORY GENERAL: TOBACCO USE ARE YOU A:NONSMOKER LATEX QUESTIONNAIRE LATEX ALLERGY : HAVE YOU EVER DEVELOPED ANY TYPE OF REACTION AFTER HANDLING LATEX PRODUCTS SUCH RUBBER GLOVES, CONDOMS, DIAPHRAGMS, BALLOONS, SOCKS, OR UNDERWEAR?NO LATEX ALLERGY : HAVE YOU EVER DEVELOPED ANY TYPE OF REACTION DURING OR AFTER DENTAL APPOINTMENT, VAGINAL/RECTAL EXAMINATION, SURGICAL PROCEDURE, OR ANY OTHER EXPOSURE?NO LATEX RISK : HAVE YOU EVER HAD ANY DIFFICULTY BREATHING OR HIVES AFTER EATING OR HANDLING ANY FRUITS, OR VEGETABLES; SUCH KIWI, BANANAS, STONE FRUITS, OR CHESTNUTSNO LATEX RISK : DO YOU HAVE A PREVIOUS PERSONAL HISTORY OF MORE THAN NINE SURGERIES, SPINA BIFIDA, OR REPEATED CATHERIZATIONS? NO LATEX RISK : ARE YOU FREQUENTLY EXPOSED TO LATEX PRODUCTS IN YOUR OCCUPATION?NO DATE ASKED : 11/26/2020 ALCOHOL USE: YES. EVERY OTHER DAY. 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 - PFS REFERRAL NEEDED?NO CLERGY REFERRAL NEEDED?NO PUBLIC HEALTH REFERRAL NEEDED?NO WAS THE PROVIDER NOTIFIED OF ANY PERTINENT INFO? N/A HAS THE PATIENT BEEN EDUCATED REGARDING HIS/HER PLAN OF CARE?YES HAS THE PATIENT BEEN EDUCATED REGARDING PAIN, THE RISK FOR PAIN, THE IMPORTANCE OF EFFECTIVE PAIN MANAGEMENT, AND THE PAIN ASSESSMENT PROCESS?YES ADVANCE DIRECTIVE ADVANCE DIRECTIVE DISCUSSED WITH PATIENT:YES HCP - SHARLENE BOND ([facility]) REVIEW OF SYSTEMS CONSTITUTIONAL: ANY RECENT FEVER NO . CHILLS NO . WEIGHT CHANGE OF UNKNOWN REASONS NO . GASTROENTEROLOGY: NEW UNEXPLAINABLE CHANGES IN BOWEL CONTROL NO . CONSTIPATION NO . GENITOURINARY: ANY NEW CHANGE IN BLADDER CONTROL? NO . NEUROLOGY: NEW ONSET DIZZINESS OR NEUROLOGICAL CHANGES NOT MENTIONED NO . NEW NUMBNESS OR PAIN PATTERNS NOT MENTIONED AND PERTINENT TO TODAY'S VISIT NO . CARDIOLOGY: NEW CHEST PRESSURE NO . PATIENT DENIES NO . RESPIRATORY: UNEXPLAINABLE COUGH NO . NEW SHORTNESS OF BREATH NO . VITAL SIGNS WT 213.2 LBS, HT 65 IN, BMI 35.47 INDEX, BP 171/82 MM HG, REPEAT BP 148/90 MANUAL RIGHT ARM, HR 65 /MIN, RR 18 /MIN, TEMP 98.2 F, OXYGEN SAT % 96%, SAFE IN ENV? (Y/N) YES, NA INITIALS ND 09:37, REVIEWED BY: NORBERTO BP RETAKEN. 148/90. FLORECITA MO MA. EXAMINATION GENERAL EXAMINATION: GENERALNO ACUTE DISTRESS, WELL NOURISHED AND HYDRATED. PSYCHAPPROPRIATE MOOD AND AFFECT . LUNGS:CLEAR TO AUSCULTATION BILATERALLY, NO WHEEZES, RHONCHI, RALES. HEART:NO MURMURS, REGULAR RATE AND RHYTHM. 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 CHRONIC PAIN FOLLOW-UP. GIVEN PRESENTING SYMPTOMS RECOMMEND REFERRAL TO THE [facility] FOR POTENTIAL MEDICAL MARIJUANA. PATIENT HAS EXPRESSED UNDERSTANDING OF AND WAS IN AGREEMENT WITH TREATMENT PLAN. GIVEN TIME BEST QUESTIONS AND EXPRESS CONCERNS. [facility]:MEDICAL MARIJUANA OTHERS CLINICAL NOTES: [facility] INFORMATION PRINTED AND PROVIDED TO PATIENT. PATIENT VERBALIZED AN UNDERSTANDING. FLORECITA MO MA. PROCEDURES PN WORKMANS' COMP OPINION IN YOUR OPINION, WAS THE INCIDENT THAT THE PATIENT DESCRIBED THE COMPETENT MEDICAL CAUSE OF THIS INJURY/ILLNESS? YES ARE THE PATIENT'S COMPLAINTS CONSISTENT WITH HIS/HER HISTORY OF THE INJURY/ILLNESS? YES IS THE PATIENT'S HISTORY OF THE INJURY/ILLNESS CONSISTENT WITH YOUR OBJECTIVE FINDING? YES WHAT IS THE PERCENTAGE OF TEMPORARY IMPAIRMENT? MODERATE TO MARKED = 66.7% IS THE PATIENT WORKING? NO DOCTOR ON SITE: CATALINA CASAS MD PROCEDURE CODES FA211 ESTABILISHED PATIENT [facility] FACILITY CHARGE DISPOSITION & COMMUNICATION FOLLOW UP 3 MONTHS (REASON: CHRONIC PAIN) ELECTRONICALLY SIGNED BY KHUSHBOO CROWDER ON 11/29/2020 AT 07:48 AM EDT DISCLAIMER : THIS IS A VISIT SUMMARY EXTRACTED FROM THE [employer] CHART. IT IS NOT A COPY OF THE [facility] PROGRESS NOTE. LINA
== END ==
LOC: M PAIN 09:30
PROVIDERS: ATTEND Family Medicine
DX: M47.817 Spondylosis without myelopathy or radiculopathy, lumbosacral region (principal); K74.3 Primary biliary cirrhosis; I25.10 Atherosclerotic heart disease of native coronary artery without angina pectoris; D64.9 Anemia, unspecified; I48.91 Unspecified atrial fibrillation; G47.33 Obstructive sleep apnea (adult) (pediatric); M79.18 Myalgia, other site; M54.5 Low back pain; Z79.01 Long term (current) use of anticoagulants; Z79.02 Long term (current) use of antithrombotics/antiplatelets; Z79.891 Long term (current) use of opiate analgesic; Z79.899 Other long term (current) drug therapy; Z88.0 Allergy status to penicillin; Z88.6 Allergy status to analgesic agent; Z88.8 Allergy status to other drugs, medicaments and biological substances

== ENCOUNTER → 2020-12-20 | Outpatient (REF) | payer MEDICARE ==
[2020-12-20 18:19] LABS: IMMUNOGLOBULIN G 1350 MG/DL (681-1648); TOTAL PROTEIN 7.7 GM/DL (6.4-8.2)
[2020-12-21 10:49] LABS: ALPHA-1-GLOBULIN % 4.4 % (2.9-4.9); ALPHA-2-GLOBULINS 0.76 GM/DL (0.42-0.99); ALPHA-2-GLOBULINS % 11.2 % (7.1-11.8); BETA-1-GLOBULINS 0.52 GM/DL (0.28-0.60); BETA-1-GLOBULINS % 7.7 % (4.7-7.2); BETA-2-GLOBULINS 0.39 GM/DL (0.19-0.55); BETA-2-GLOBULINS % 5.8 % (3.2-6.5); GAMMA GLOBULIN % 17.9 % (11.1-18.8); GAMMA GLOBULINS 1.22 GM/DL (0.65-1.58)
== END ==
LOC: M LAB REF 17:10
PROVIDERS: ATTEND Internal Medicine
DX: D47.2 Monoclonal gammopathy (principal)

== ENCOUNTER → 2021-03-21 | Outpatient (CLI) | payer OTHER ==
[~2021-03-21] MED LIST changes: -CYMB60CA3 PO; +CYMB60CA4 PO
== END ==
LOC: M PAIN 13:30
PROVIDERS: ATTEND Anesthesiology
DX: M47.817 Spondylosis without myelopathy or radiculopathy, lumbosacral region (principal); K74.3 Primary biliary cirrhosis; Z86.73 Personal history of transient ischemic attack (TIA), and cerebral infarction without residual deficits; I25.10 Atherosclerotic heart disease of native coronary artery without angina pectoris; Z95.5 Presence of coronary angioplasty implant and graft; D64.9 Anemia, unspecified; I48.91 Unspecified atrial fibrillation; G47.33 Obstructive sleep apnea (adult) (pediatric); M79.18 Myalgia, other site; J45.909 Unspecified asthma, uncomplicated; M54.50 Low back pain, unspecified; Z79.01 Long term (current) use of anticoagulants; Z79.82 Long term (current) use of aspirin; Z79.899 Other long term (current) drug therapy; Z96.653 Presence of artificial knee joint, bilateral; Z88.0 Allergy status to penicillin; Z88.6 Allergy status to analgesic agent; Z88.8 Allergy status to other drugs, medicaments and biological substances

== ENCOUNTER → 2021-07-02 | Outpatient (REF) | payer MEDICARE | LOC: M LAB REF 11:29 | PROVIDERS: ATTEND Internal Medicine | DX: D47.2 Monoclonal gammopathy (principal) ==

== ENCOUNTER → 2021-07-23 | Outpatient (CLI) | payer MEDICARE | LOC: M RAD 08:54 | PROVIDERS: ATTEND Internal Medicine | DX: K74.3 Primary biliary cirrhosis (principal) ==

== ENCOUNTER → 2021-08-09 | Outpatient (CLI) | payer MEDICARE ==
[2021-08-09 13:23] LABS: C REACTIVE PROTEIN QUANTITATIV 2.59 MG/DL (0.00-0.30); URIC ACID 6.1 MG/DL (2.6-6.0)
== END ==
LOC: M WUC 09:19
PROVIDERS: ATTEND Internal Medicine
DX: M15.9 Polyosteoarthritis, unspecified (principal)

== ENCOUNTER → 2021-09-05 | Outpatient (CLI) | payer OTHER | LOC: M PAIN 11:45 | PROVIDERS: ATTEND Nurse Practitioner Family | DX: M47.817 Spondylosis without myelopathy or radiculopathy, lumbosacral region (principal); M51.16 Intervertebral disc disorders with radiculopathy, lumbar region; K74.5 Biliary cirrhosis, unspecified; I25.10 Atherosclerotic heart disease of native coronary artery without angina pectoris; D64.9 Anemia, unspecified; R03.0 Elevated blood-pressure reading, without diagnosis of hypertension; I48.91 Unspecified atrial fibrillation; G47.33 Obstructive sleep apnea (adult) (pediatric); M79.10 Myalgia, unspecified site; Z96.653 Presence of artificial knee joint, bilateral; Z95.5 Presence of coronary angioplasty implant and graft; Z86.73 Personal history of transient ischemic attack (TIA), and cerebral infarction without residual deficits; Z79.01 Long term (current) use of anticoagulants; Z79.899 Other long term (current) drug therapy; Z88.0 Allergy status to penicillin; Z88.5 Allergy status to narcotic agent; Z88.8 Allergy status to other drugs, medicaments and biological substances ==

== ENCOUNTER → 2021-10-03 | Outpatient (CLI) | payer MEDICARE | LOC: M PLAIMG 14:14 | PROVIDERS: ATTEND Internal Medicine Pulmonary Disease | DX: R06.00 Dyspnea, unspecified (principal) ==

== ENCOUNTER → 2021-11-08 | Outpatient (CLI) | payer MEDICARE | LOC: M WUC 10:43 | PROVIDERS: ATTEND Internal Medicine Pulmonary Disease | DX: J45.20 Mild intermittent asthma, uncomplicated (principal) ==

== ENCOUNTER → 2021-12-30 | Outpatient (REF) | payer MEDICARE ==
[2022-01-01 10:40] LABS: ALBUMIN 3.76 GM/DL (3.29-5.55); ALBUMIN % 53.7 % (55.8-66.1); ALPHA-1-GLOBULINS 0.42 GM/DL (0.17-0.41); ALPHA-2-GLOBULINS 0.93 GM/DL (0.42-0.99); ALPHA-2-GLOBULINS % 13.3 % (7.1-11.8); BETA-1-GLOBULINS % 8.6 % (4.7-7.2); BETA-2-GLOBULINS 0.39 GM/DL (0.19-0.55); BETA-2-GLOBULINS % 5.6 % (3.2-6.5); GAMMA GLOBULIN % 12.8 % (11.1-18.8)
[2022-01-01 18:35] LABS: PERCENT SATURATION 5.5 % (13.2-45.0)
[2022-01-01 19:11] LABS: FOLATE 3.6 NG/ML
== END ==
LOC: M LAB REF 12:03
PROVIDERS: ATTEND Internal Medicine
DX: D47.2 Monoclonal gammopathy (principal); D50.9 Iron deficiency anemia, unspecified

== ENCOUNTER → 2022-03-31 | Outpatient (REF) | payer MEDICARE ==
[2022-03-31 18:29] LABS: HEMATOCRIT 31.9 % (36.0-47.0); HEMOGLOBIN 8.5 g/dl (12.0-15.5)
== END ==
LOC: M LAB REF 17:22
PROVIDERS: ATTEND Internal Medicine Pulmonary Disease
DX: J45.40 Moderate persistent asthma, uncomplicated (principal)

== ENCOUNTER 2022-04-07 10:01 | Inpatient (IN) | payer MEDICARE ==
[~2022-04-07] VITALS: Ht 165.1 cm; Wt 101.9 kg
[2022-04-07 11:50] LABS: BASO # 0.1 10^3/uL (0.0-0.2); BASO % 0.8 % (0.0-1.0); EOS # 0.3 10^3/uL (0.0-0.5); EOS % 4.4 % (0.0-3.0); HEMATOCRIT 30.5 % (36.0-47.0); HEMOGLOBIN 8.3 g/dl (12.0-15.5); LYMPH # 1.3 10^3/uL (1.5-5.0); LYMPH % 19.8 % (24.0-44.0); MEAN CORPUSCULAR HEMOGLOBIN 22.3 pg (27.0-33.0); MEAN CORPUSCULAR HGB CONC 27.2 g/dl (32.0-36.5); MEAN CORPUSCULAR VOLUME 81.8 fl (80.0-96.0); MONO # 0.6 10^3/uL (0.0-0.8); MONO % 9.7 % (2.0-8.0); NEUTROPHILS # 4.2 10^3/uL (1.5-8.5); NEUTROPHILS % 64.7 % (36.0-66.0); PLATELET COUNT, AUTOMATED 364 10^3/uL (150-450); RED BLOOD COUNT 3.73 10^6/uL (4.00-5.40); WHITE BLOOD COUNT 6.4 10^3/uL (4.0-10.0)
[2022-04-07 12:24] LABS: ALBUMIN 3.4 GM/DL (3.2-5.2); BILIRUBIN,DIRECT 0.2 MG/DL (0.0-0.2); BILIRUBIN,TOTAL 0.5 MG/DL (0.2-1.0); CALCIUM LEVEL 9.3 MG/DL (8.8-10.2); CK-MB VALUE MASS < 1.0 NG/ML (<3.6); CPK CREATINE PHOSPHOKINASE 49 U/L (26-192); CREATININE FOR GFR 1.07 MG/DL (0.55-1.30); FREE T4 1.15 NG/DL (0.76-1.46); GLOMERULAR FILTRATION RATE 52.9 (>39); MAGNESIUM LEVEL 2.2 MG/DL (1.8-2.4); MB/CK RELATIVE INDEX 2.04 (< OR =4); POTASSIUM SERUM 3.4 MEQ/L (3.5-5.1); THYROID STIMULATING HORMONE 0.939 uIU/ML (0.358-3.740); TOTAL PROTEIN 7.1 GM/DL (6.4-8.2)
[2022-04-07] MEDS ORDERED: NS 1,000 ML IV ONE (15:25)
[2022-04-07] MEDS ORDERED: D31000CA4 PO (15:50)
[2022-04-07] MEDS ORDERED: GABA-1171 PO (15:50)
[2022-04-07] MEDS ORDERED: HOME MED LIST COMPLETE! XX SCH (15:50)
[2022-04-07] MEDS ORDERED: FLUT1INH3 INH (15:50)
[2022-04-07] MEDS ORDERED: FURO40TA2 PO (15:50)
[2022-04-07] MEDS ORDERED: ALBU8.5H INH (15:50)
[2022-04-07] MEDS ORDERED: TIZA10TA PO (15:50)
[2022-04-07] MEDS ORDERED: ELIQ5TAB PO (15:50)
[2022-04-07] MEDS ORDERED: MONT10TA97 PO (15:50)
[2022-04-07] MEDS ORDERED: JARD1TAB PO (15:50)
[2022-04-07] MEDS ORDERED: MIRT-11 PO (15:50)
[2022-04-07] MEDS ORDERED: B-122500 PO (15:50)
[2022-04-07 15:51] LABS: RSV AMPLIFICATION NEGATIVE (NEGATIVE)
[2022-04-07 17:28] VITALS: BP 142/80
[2022-04-07] MEDS ORDERED: ALBUTEROL 90 MCG/ACT 8GM HFA INHALER INH PRN (18:45)
[2022-04-07 20:00] VITALS: BP 134/58
[2022-04-07] MEDS: GABAPENTIN 100 MG CAP PO SCH (20:54)
[2022-04-07] MEDS: tiZANidine 4 MG TAB PO SCH (20:54)
[2022-04-07] MEDS: APIXABAN 5 MG TAB (ELIQUIS) PO SCH (20:54)
[2022-04-07] MEDS: ALPRAZolam 0.25 MG TAB PO PRN (21:30)
[2022-04-07] MEDS: ursodioL 300MG CAP PO SCH (21:56)
[2022-04-08] VITALS (11 sets, daily range): BP systolic 108–142; BP diastolic 58–92
[2022-04-08] MEDS: ALPRAZolam 0.25 MG TAB PO PRN ×2 (07:10→20:08)
[2022-04-08 08:00] LABS: HEMATOCRIT 26.4 % (36.0-47.0); HEMOGLOBIN 7.3 g/dl (12.0-15.5); MEAN CORPUSCULAR HEMOGLOBIN 22.1 pg (27.0-33.0); MEAN CORPUSCULAR HGB CONC 27.7 g/dl (32.0-36.5); MEAN CORPUSCULAR VOLUME 79.8 fl (80.0-96.0); PLATELET COUNT, AUTOMATED 350 10^3/uL (150-450); RED BLOOD COUNT 3.31 10^6/uL (4.00-5.40); WHITE BLOOD COUNT 4.6 10^3/uL (4.0-10.0)
[2022-04-08 08:28] LABS: ALT/SGPT 31 U/L (12-78); BILIRUBIN,TOTAL 0.6 MG/DL (0.2-1.0); BLOOD UREA NITROGEN 11 MG/DL (7-18); CALCIUM LEVEL 8.7 MG/DL (8.8-10.2); CARBON DIOXIDE LEVEL 31 MEQ/L (21-32); CHLORIDE LEVEL 100 MEQ/L (98-107); CREATININE FOR GFR 0.99 MG/DL (0.55-1.30); FERRITIN 5 NG/ML (8-252); GLOMERULAR FILTRATION RATE 57.9 (>39); GLUCOSE, FASTING 99 MG/DL (70-100); IRON (FE) 20 UG/DL (50-170); PERCENT SATURATION 3.4 % (13.2-45.0); POTASSIUM SERUM 3.3 MEQ/L (3.5-5.1); SODIUM LEVEL 140 MEQ/L (136-145); TOTAL IRON BINDING CAPACITY 597 UG/DL (250-450); TOTAL PROTEIN 6.2 GM/DL (6.4-8.2)
[2022-04-08] MEDS ORDERED: FUROSEMIDE 40 MG TAB PO SCH (09:00)
[2022-04-08] MEDS ORDERED: FERROUS GLUCONATE 324 MG TAB PO SCH (09:20)
[2022-04-08] MEDS: CYANOCOBALAMIN 500 MCG TAB PO SCH (09:33)
[2022-04-08] MEDS: buPROPion **XL** TABLET 150MG (WELLBUTRIN XL) PO SCH (09:33)
[2022-04-08] MEDS: ursodioL 300MG CAP PO SCH ×2 (09:33→20:08)
[2022-04-08] MEDS: MONTELUKAST 10 MG TAB PO SCH (09:34)
[2022-04-08] MEDS: APIXABAN 5 MG TAB (ELIQUIS) PO SCH (09:34)
[2022-04-08 09:46] LABS: FOLATE 5.2 NG/ML (>5.4); VITAMIN B12 LEVEL > 2000 PG/ML (247-911)
[2022-04-08] MEDS ORDERED: POTASSIUM CHLORIDE 10MEQ SR TABLET PO ONE (10:00)
[2022-04-08] MEDS ORDERED: LORazepam 0.5 MG TAB PO STA (10:25)
[2022-04-08] MEDS ORDERED: IRON SUCROSE 100MG 5ML VIAL (J1756 PER 1MG) IV ONE (10:30)
[2022-04-08] MEDS: FOLIC ACID 1MG TAB PO SCH (10:36)
[2022-04-08] MEDS ORDERED: IRON SUCROSE 100 MG in NS 95 ML IV ONE (13:00)
[2022-04-08 16:16] LABS: HEMATOCRIT 33.2 % (36.0-47.0); HEMOGLOBIN 9.2 g/dl (12.0-15.5); MEAN CORPUSCULAR HEMOGLOBIN 22.9 pg (27.0-33.0); MEAN CORPUSCULAR HGB CONC 27.7 g/dl (32.0-36.5); MEAN CORPUSCULAR VOLUME 82.6 fl (80.0-96.0); PLATELET COUNT, AUTOMATED 370 10^3/uL (150-450); RED BLOOD COUNT 4.02 10^6/uL (4.00-5.40)
[2022-04-08] MEDS: GABAPENTIN 100 MG CAP PO SCH (20:08)
[2022-04-08] MEDS: busPIRone 5 MG TAB PO SCH (20:08)
[2022-04-08] MEDS: tiZANidine 4 MG TAB PO SCH (20:08)
[2022-04-09 04:00] VITALS: BP 132/60
[2022-04-09 06:07] LABS: HEMATOCRIT 30.9 % (36.0-47.0); HEMOGLOBIN 8.5 g/dl (12.0-15.5); MEAN CORPUSCULAR HEMOGLOBIN 22.8 pg (27.0-33.0); MEAN CORPUSCULAR HGB CONC 27.5 g/dl (32.0-36.5); MEAN CORPUSCULAR VOLUME 83.1 fl (80.0-96.0); PLATELET COUNT, AUTOMATED 318 10^3/uL (150-450); RED BLOOD COUNT 3.72 10^6/uL (4.00-5.40); WHITE BLOOD COUNT 4.8 10^3/uL (4.0-10.0)
[2022-04-09 06:35] LABS: CALCIUM LEVEL 8.7 MG/DL (8.8-10.2); CREATININE FOR GFR 0.96 MG/DL (0.55-1.30); MAGNESIUM LEVEL 2.1 MG/DL (1.8-2.4); POTASSIUM SERUM 3.7 MEQ/L (3.5-5.1)
[2022-04-09 07:55] VITALS: BP 118/64
[2022-04-09] MEDS: ursodioL 300MG CAP PO SCH ×2 (07:56→19:57)
[2022-04-09] MEDS: MONTELUKAST 10 MG TAB PO SCH (07:57)
[2022-04-09] MEDS: CYANOCOBALAMIN 500 MCG TAB PO SCH (07:57)
[2022-04-09] MEDS: buPROPion **XL** TABLET 150MG (WELLBUTRIN XL) PO SCH (07:57)
[2022-04-09] MEDS: FOLIC ACID 1MG TAB PO SCH (07:57)
[2022-04-09] MEDS: busPIRone 5 MG TAB PO SCH ×2 (07:57→19:57)
[2022-04-09] MEDS: ALPRAZolam 0.25 MG TAB PO PRN ×2 (07:58→19:56)
[2022-04-09] MEDS ORDERED: NS 500 ML IV ONE (08:30)
[2022-04-09] MEDS ORDERED: ATORVASTATIN 20 MG TAB PO SCH (09:00)
[2022-04-09 12:00] VITALS: BP_SYST 126; BP_SYST 137; BP_SYST 148; BP_DIAS 60; BP_DIAS 63; BP_DIAS 67
[2022-04-09 12:28] LABS: HEMATOCRIT 32.4 % (36.0-47.0)
[2022-04-09] MEDS ORDERED: LR 1,000 ML IV ONE (12:50)
[2022-04-09] MEDS ORDERED: MIRTAZAPINE 15 MG TAB PO SCH (16:20)
[2022-04-09] MEDS ORDERED: WARFARIN SOD 5MG TAB PO SCH (17:00)
[2022-04-09] MEDS: OMEPRAZOLE 20MG CAP PO SCH (18:21)
[2022-04-09] MEDS: ADVAIR HFA 115/21MCG INHALER INH SCH (19:49)
[2022-04-09] MEDS: tiZANidine 4 MG TAB PO SCH (19:56)
[2022-04-09] MEDS: BACTRIM 160MG/800MG DS TAB PO SCH (19:56)
[2022-04-09] MEDS: GABAPENTIN 100 MG CAP PO SCH (19:56)
[2022-04-09 20:00] VITALS: BP 124/64
[2022-04-10 04:00] VITALS: BP 128/68
[2022-04-10 07:26] VITALS: BP 152/69
[2022-04-10] MEDS: FOLIC ACID 1MG TAB PO SCH (08:18)
[2022-04-10] MEDS: CYANOCOBALAMIN 500 MCG TAB PO SCH (08:19)
[2022-04-10] MEDS: OMEPRAZOLE 20MG CAP PO SCH (08:19)
[2022-04-10] MEDS: MONTELUKAST 10 MG TAB PO SCH (08:19)
[2022-04-10] MEDS: buPROPion **XL** TABLET 150MG (WELLBUTRIN XL) PO SCH (08:20)
[2022-04-10] MEDS: ursodioL 300MG CAP PO SCH (08:20)
[2022-04-10] MEDS: busPIRone 5 MG TAB PO SCH (08:20)
[2022-04-10] MEDS: BACTRIM 160MG/800MG DS TAB PO SCH (08:20)
[2022-04-10] MEDS: ADVAIR HFA 115/21MCG INHALER INH SCH (08:45)
[2022-04-10] MEDS ORDERED: DULoxetine 30MG CAPSULE (CYMBALTA) PO SCH (09:00)
[2022-04-10 10:27] VITALS: BP_SYST 145; BP_SYST 146; BP_SYST 157; BP_DIAS 70; BP_DIAS 80
[2022-04-10] MEDS ORDERED: DOCUSATE SODIUM 100MG CAPSULE PO ONE (10:50)
[2022-04-10] MEDS ORDERED: FLUBLOK(EGG FREE)(QUAD)INFLUENZA VACC 0.5ML SYRINGE 18YRS & OLDER IM ONE (11:00)
[2022-04-10] MEDS ORDERED: FURO20TA2 PO (11:17)
[2022-04-10] MEDS ORDERED: BACTDSTA PO (11:17)
[2022-04-10] MEDS ORDERED: CYMB1CAP5 PO (11:17)
[2022-04-10] MEDS ORDERED: BUSP5TA PO (11:17)
[2022-04-10] MEDS ORDERED: FOLI1TAB11 PO (11:17)
== END 2022-04-10 13:31 | disposition home or self-care (01) | DRG 811 ==
LOC: M ED 11:27 → M ED INP 15:21 → ENRESERV 16:20 → M PCU 17:15
PROVIDERS: ADMIT Internal Medicine; ATTEND Student in an Organized Health Care Education/Training Program
PROC: 30233N1 Transfusion of Nonautologous Red Blood Cells into Peripheral Vein, Percutaneous Approach (ICD-10-PCS; principal; 2022-04-07)
DX: D50.9 Iron deficiency anemia, unspecified (principal); U07.1 COVID-19; K83.09 Other cholangitis; N39.0 Urinary tract infection, site not specified; F41.9 Anxiety disorder, unspecified; F40.240 Claustrophobia; I48.91 Unspecified atrial fibrillation; E87.6 Hypokalemia; I10 Essential (primary) hypertension; I95.1 Orthostatic hypotension; E78.5 Hyperlipidemia, unspecified; J45.909 Unspecified asthma, uncomplicated; F32.A Depression, unspecified; F43.22 Adjustment disorder with anxiety; K64.9 Unspecified hemorrhoids; Z95.0 Presence of cardiac pacemaker; Z86.73 Personal history of transient ischemic attack (TIA), and cerebral infarction without residual deficits; Z88.8 Allergy status to other drugs, medicaments and biological substances; Z87.891 Personal history of nicotine dependence; Z79.01 Long term (current) use of anticoagulants; Z79.899 Other long term (current) drug therapy; Z88.0 Allergy status to penicillin

== ENCOUNTER → 2022-04-21 | Outpatient (REF) | payer MEDICARE ==
[~2022-04-21] MED LIST changes: +ALBU8.5H INH; +B-122500 PO; +BACTDSTA PO; +BUSP5TA PO; +D31000CA4 PO; +ELIQ5TAB PO; +FLUT1INH3 INH; +FOLI1TAB11 PO; +FURO20TA2 PO; +FURO40TA2 PO; +GABA-1171 PO; +JARD1TAB PO; +MIRT-11 PO; +MONT10TA97 PO; +TIZA10TA PO
[2022-04-21 17:52] LABS: IRON (FE) 126 UG/DL (50-170); PERCENT SATURATION 23.8 % (13.2-45.0); TOTAL IRON BINDING CAPACITY 530 UG/DL (250-425); VITAMIN B12 LEVEL > 2000 PG/ML (211-911)
== END ==
LOC: M LAB REF 16:29
PROVIDERS: ATTEND Internal Medicine
DX: D64.9 Anemia, unspecified (principal)

== ENCOUNTER → 2022-05-12 | Outpatient (CLI) | payer MEDICARE ==
[~2022-05-12] MED LIST changes: +ALBU2.5V10 INH; +BUDE0.254 INH; +DOXY100T27 PO; +IPRA2IN INH
== END ==
LOC: M LABSMTC 09:52
PROVIDERS: ATTEND Anesthesiology
DX: Z01.812 Encounter for preprocedural laboratory examination (principal); Z11.52 Encounter for screening for COVID-19

== ENCOUNTER 2022-05-14 13:32 | Day surgery (SDC) | payer MEDICARE ==
[~2022-05-14] VITALS: Ht 165.1 cm; Wt 93.0 kg
[~2022-05-14 13:32] MED LIST changes: +NS 1,000 ML IV ONE
[2022-05-14] MEDS ORDERED: LIDOCAINE 2% 100MG/5ML SDV (FOR ANES.) As Ordered ONE (15:44)
[2022-05-14] MEDS ORDERED: propofoL 200 MG/20 ML VIAL As Ordered ONE (15:44)
[2022-05-14 16:10] VITALS: BP 139/63
== END 2022-05-14 16:15 | disposition home or self-care (01) ==
LOC: M OPP 13:32
PROVIDERS: ATTEND Internal Medicine Gastroenterology
DX: D12.6 Benign neoplasm of colon, unspecified (principal); K64.0 First degree hemorrhoids; K57.30 Diverticulosis of large intestine without perforation or abscess without bleeding; D50.9 Iron deficiency anemia, unspecified; K31.A14 Gastric intestinal metaplasia without dysplasia, involving the cardia; K44.9 Diaphragmatic hernia without obstruction or gangrene; K31.819 Angiodysplasia of stomach and duodenum without bleeding; K22.70 Barrett's esophagus without dysplasia; K22.89 Other specified disease of esophagus; Z79.01 Long term (current) use of anticoagulants; Z79.02 Long term (current) use of antithrombotics/antiplatelets; Z79.51 Long term (current) use of inhaled steroids; Z79.84 Long term (current) use of oral hypoglycemic drugs; Z79.899 Other long term (current) drug therapy; Z88.0 Allergy status to penicillin; Z88.1 Allergy status to other antibiotic agents; Z88.8 Allergy status to other drugs, medicaments and biological substances; Z87.891 Personal history of nicotine dependence; G47.30 Sleep apnea, unspecified; I48.91 Unspecified atrial fibrillation; Z86.73 Personal history of transient ischemic attack (TIA), and cerebral infarction without residual deficits; Z95.0 Presence of cardiac pacemaker

== ENCOUNTER → 2022-05-19 | Outpatient (CLI) | payer OTHER ==
[~2022-05-19] MED LIST changes: -NS 1,000 ML IV ONE
== END ==
LOC: M PAIN 09:45 → M TMPAIN 09:45
PROVIDERS: ATTEND Nurse Practitioner Family
DX: M47.816 Spondylosis without myelopathy or radiculopathy, lumbar region (principal); G89.29 Other chronic pain; I10 Essential (primary) hypertension; D50.9 Iron deficiency anemia, unspecified; G47.33 Obstructive sleep apnea (adult) (pediatric); M79.10 Myalgia, unspecified site; J45.909 Unspecified asthma, uncomplicated; Z95.0 Presence of cardiac pacemaker; Z86.73 Personal history of transient ischemic attack (TIA), and cerebral infarction without residual deficits; Z96.653 Presence of artificial knee joint, bilateral; Z95.5 Presence of coronary angioplasty implant and graft; Z88.0 Allergy status to penicillin; Z88.6 Allergy status to analgesic agent; Z88.8 Allergy status to other drugs, medicaments and biological substances; Z79.01 Long term (current) use of anticoagulants; Z79.899 Other long term (current) drug therapy

== ENCOUNTER → 2022-05-19 | Outpatient (REF) | payer MEDICARE | LOC: M LAB REF 16:09 | PROVIDERS: ATTEND Internal Medicine | DX: D50.9 Iron deficiency anemia, unspecified (principal) ==

== ENCOUNTER → 2022-07-23 | Outpatient (REF) | payer MEDICARE ==
[2022-07-23 17:20] LABS: FERRITIN 15.9 NG/ML (7.3-270.7)
[2022-07-23 17:23] LABS: PERCENT SATURATION 10.7 % (13.2-45.0)
== END ==
LOC: M LAB REF 16:13
PROVIDERS: ATTEND Internal Medicine
DX: D50.9 Iron deficiency anemia, unspecified (principal)

== ENCOUNTER → 2022-08-08 | Outpatient (REF) | payer MEDICARE | LOC: M LAB REF 12:32 | PROVIDERS: ATTEND Internal Medicine | DX: R31.29 Other microscopic hematuria (principal) ==

== ENCOUNTER → 2022-09-30 | Outpatient (CLI) | payer OTHER | LOC: M PAIN 09:00 | PROVIDERS: ATTEND Nurse Practitioner Family | DX: M47.816 Spondylosis without myelopathy or radiculopathy, lumbar region (principal); K74.3 Primary biliary cirrhosis; I25.10 Atherosclerotic heart disease of native coronary artery without angina pectoris; D64.9 Anemia, unspecified; I48.91 Unspecified atrial fibrillation; M54.50 Low back pain, unspecified; G47.33 Obstructive sleep apnea (adult) (pediatric); M79.10 Myalgia, unspecified site; J45.909 Unspecified asthma, uncomplicated; Z99.81 Dependence on supplemental oxygen; Z95.5 Presence of coronary angioplasty implant and graft; Z86.73 Personal history of transient ischemic attack (TIA), and cerebral infarction without residual deficits; Z79.01 Long term (current) use of anticoagulants; Z79.899 Other long term (current) drug therapy; Z88.0 Allergy status to penicillin; Z88.6 Allergy status to analgesic agent; Z88.8 Allergy status to other drugs, medicaments and biological substances ==

== ENCOUNTER → 2023-02-24 | Outpatient (CLI) | payer MEDICARE, OTHER | LOC: M PAIN 11:45 | PROVIDERS: ATTEND Nurse Practitioner Family | DX: M79.18 Myalgia, other site (principal); G89.29 Other chronic pain; K74.3 Primary biliary cirrhosis; I25.10 Atherosclerotic heart disease of native coronary artery without angina pectoris; D64.9 Anemia, unspecified; I48.91 Unspecified atrial fibrillation; M54.50 Low back pain, unspecified; G47.33 Obstructive sleep apnea (adult) (pediatric); J45.909 Unspecified asthma, uncomplicated; Z99.81 Dependence on supplemental oxygen; Z95.5 Presence of coronary angioplasty implant and graft; Z86.73 Personal history of transient ischemic attack (TIA), and cerebral infarction without residual deficits; Z79.01 Long term (current) use of anticoagulants; Z79.899 Other long term (current) drug therapy; Z79.84 Long term (current) use of oral hypoglycemic drugs; Z96.653 Presence of artificial knee joint, bilateral; Z88.0 Allergy status to penicillin; Z88.6 Allergy status to analgesic agent; Z88.8 Allergy status to other drugs, medicaments and biological substances | CPT/HCPCS: 83550; G0463 ==

== ENCOUNTER → 2023-07-02 | Outpatient (REF) | payer MEDICARE, MEDICAID ==
[2023-07-02 14:09] LABS: PERCENT SATURATION 16.9 % (13.2-45.0)
== END ==
LOC: M LAB REF 13:11
PROVIDERS: ATTEND Internal Medicine
DX: D50.9 Iron deficiency anemia, unspecified (principal)

== ENCOUNTER → 2023-07-23 | Outpatient (CLI) | payer MEDICARE, MEDICAID | LOC: M WHC 08:08 | PROVIDERS: ATTEND Internal Medicine | DX: K74.3 Primary biliary cirrhosis (principal) ==

== ENCOUNTER → 2023-08-25 | Outpatient (CLI) | payer OTHER, MEDICARE | LOC: M PLAIMG 10:06 → M PLALAB 10:06 | PROVIDERS: ATTEND Nurse Practitioner Family | DX: M51.36 Other intervertebral disc degeneration, lumbar region (principal); M51.37 Other intervertebral disc degeneration, lumbosacral region ==

== ENCOUNTER → 2023-08-26 | Outpatient (CLI) | payer OTHER | LOC: M PAIN 09:30 | PROVIDERS: ATTEND Anesthesiology | DX: M47.816 Spondylosis without myelopathy or radiculopathy, lumbar region (principal); G89.29 Other chronic pain; M54.50 Low back pain, unspecified; K74.3 Primary biliary cirrhosis; I25.10 Atherosclerotic heart disease of native coronary artery without angina pectoris; D64.9 Anemia, unspecified; I48.91 Unspecified atrial fibrillation; G47.33 Obstructive sleep apnea (adult) (pediatric); M79.18 Myalgia, other site; J45.909 Unspecified asthma, uncomplicated; Z79.899 Other long term (current) drug therapy; Z88.0 Allergy status to penicillin; Z88.6 Allergy status to analgesic agent; Z88.8 Allergy status to other drugs, medicaments and biological substances ==

== ENCOUNTER 2023-11-22 17:51 | Inpatient (IN) | payer MEDICARE, MEDICAID ==
[~2023-11-22] VITALS: Ht 165.1 cm; Wt 84.1 kg
[~2023-11-22 17:51] MED LIST changes: +BUPR-597 PO; -BUPR300T92 PO
[2023-11-22 19:04] LABS: BASO # 0.1 10^3/uL (0.0-0.2); BASO % 0.5 % (0.0-1.0); EOS % 0.4 % (0.0-3.0); HEMATOCRIT 42.9 % (36.0-47.0); HEMOGLOBIN 13.4 g/dl (12.0-15.5); LYMPH # 0.7 10^3/uL (1.5-5.0); LYMPH % 7.2 % (24.0-44.0); MEAN CORPUSCULAR HEMOGLOBIN 30.1 pg (27.0-33.0); MEAN CORPUSCULAR HGB CONC 31.2 g/dl (32.0-36.5); MEAN CORPUSCULAR VOLUME 96.4 fl (80.0-96.0); MONO % 9.4 % (2.0-8.0); NEUTROPHILS # 8.5 10^3/uL (1.5-8.5); NEUTROPHILS % 82.2 % (36.0-66.0); PLATELET COUNT, AUTOMATED 207 10^3/uL (150-450); RED BLOOD COUNT 4.45 10^6/uL (4.00-5.40); WHITE BLOOD COUNT 10.3 10^3/uL (4.0-10.0)
[2023-11-22 19:26] LABS: LIPASE 27 U/L (12-53)
[2023-11-22 19:29] LABS: ALBUMIN 2.9 G/DL (3.2-5.2); ALKALINE PHOSPHATASE 205 U/L (46-116); ALT/SGPT 34 U/L (7.0-40); AST/SGOT 31 U/L (<34); BILIRUBIN,DIRECT 0.3 MG/DL (<0.4); BILIRUBIN,TOTAL 0.6 MG/DL (0.3-1.2); BLOOD UREA NITROGEN 14 MG/DL (9-23); CARBON DIOXIDE LEVEL 33 MMOL/L (20-31); CHLORIDE LEVEL 97 MMOL/L (98-107); CREATININE FOR GFR 0.78 MG/DL (0.55-1.30); GLOMERULAR FILTRATION RATE > 60.0 (>39); GLUCOSE, FASTING 136 MG/DL (74-106); POTASSIUM SERUM 3.4 MMOL/L (3.5-5.1); SODIUM LEVEL 136 MMOL/L (136-145)
[2023-11-22] MEDS ORDERED: ISOVUE-370 76% 100ML VIAL As Ordered ONE (19:34)
[2023-11-22] MEDS: MORPHINE 4 MG/ML 1ML VIAL IV PRN (19:42)
[2023-11-22] MEDS: ONDANSETRON 4MG 2ML VIAL IV ONE (19:42)
[2023-11-22 20:08] LABS: INR 1.22; PARTIAL THROMBOPLASTIN TIME 28.3 SECONDS (24.8-34.2)
[2023-11-22] MEDS: KETOROLAC 30 MG/ML 1ML VIAL IV ONE (21:44)
[2023-11-22 22:04] LABS: PROCALCITONIN 0.94 ng/ml
[2023-11-22] MEDS: cefTRIAXone SOD 2 GM in D5W MINI-BAG PLUS 50 ML IV ONE (22:47)
[2023-11-22] MEDS ORDERED: MOM 30ML SUSPENSION UDC PO PRN (23:00)
[2023-11-22] MEDS ORDERED: ATOR40TA75 PO (23:28)
[2023-11-22] MEDS ORDERED: AMLO1TAB24 PO (23:28)
[2023-11-22] MEDS ORDERED: ISOS1TAB35 PO (23:28)
[2023-11-22] MEDS ORDERED: DULO1CAP6 PO (23:28)
[2023-11-22] MEDS ORDERED: ACET650T61 PO (23:28)
[2023-11-22] MEDS ORDERED: BREO1INH3 PO (23:28)
[2023-11-22] MEDS ORDERED: FLUC150T9 PO (23:28)
[2023-11-22] MEDS ORDERED: BUSP5TA PO (23:28)
[2023-11-22] MEDS ORDERED: ALBU8.5H PO (23:28)
[2023-11-22] MEDS ORDERED: HOME MED LIST COMPLETE! XX SCH (23:35)
[2023-11-23 00:43] LABS: MAGNESIUM LEVEL 1.5 MG/DL (1.8-2.4)
[2023-11-23] MEDS: NS 1,000 ML IV SCH (01:45)
[2023-11-23] MEDS: POTASSIUM CHLORIDE 10% LIQ 20MEQ/15ML UDC PO ONE (01:45)
[2023-11-23] MEDS: MORPHINE 2 MG/ML 1ML VIAL IV PRN (01:51)
[2023-11-23 02:20] VITALS: BP 140/64; TEMP 99.1; O2SAT 91
[2023-11-23] MEDS: MAG SULF 1GM/100ML (MAG RUN) 1 GM in IV 1 EA IV SCH (03:16)
[2023-11-23] MEDS: ACETAMINOPHEN TAB 650MG DOSE (2X325MG) PO PRN (03:21)
[2023-11-23 06:06] LABS: HEMATOCRIT 38.7 % (36.0-47.0); HEMOGLOBIN 12.1 g/dl (12.0-15.5); MEAN CORPUSCULAR HGB CONC 31.3 g/dl (32.0-36.5); PLATELET COUNT, AUTOMATED 192 10^3/uL (150-450); RED BLOOD COUNT 4.03 10^6/uL (4.00-5.40); WHITE BLOOD COUNT 12.4 10^3/uL (4.0-10.0)
[2023-11-23 06:29] LABS: ALBUMIN 2.5 G/DL (3.2-5.2); BILIRUBIN,TOTAL 0.5 MG/DL (0.3-1.2); CALCIUM LEVEL 8.6 MG/DL (8.3-10.6); CREATININE FOR GFR 0.99 MG/DL (0.55-1.30); GLOMERULAR FILTRATION RATE 57.6 (>39); POTASSIUM SERUM 3.1 MMOL/L (3.5-5.1); TOTAL PROTEIN 6.2 G/DL (5.7-8.2)
[2023-11-23] MEDS: KETOROLAC 30 MG/ML 1ML VIAL IV PRN (08:38)
[2023-11-23] MEDS: DOCUSATE SODIUM 100MG CAPSULE PO SCH (08:38)
[2023-11-23] MEDS: MONTELUKAST 10 MG TAB PO SCH (08:39)
[2023-11-23] MEDS: POTASSIUM CHLORIDE 10MEQ SR TABLET PO ONE (08:39)
[2023-11-23] MEDS: ATORVASTATIN 20 MG TAB PO SCH (08:39)
[2023-11-23] MEDS: APIXABAN 5 MG TAB (ELIQUIS) PO SCH (08:40)
[2023-11-23] MEDS: ISOSORBIDE MON. (IMDUR) 30MG XR TAB PO SCH (08:40)
[2023-11-23] MEDS: busPIRone 5 MG TAB PO SCH (08:46)
[2023-11-23] MEDS: ursodioL 300MG CAP PO SCH (08:46)
[2023-11-23] MEDS: PROMETHAZINE 25MG/ML 1ML VIAL IV PRN (08:46)
[2023-11-23 12:00] VITALS: BP 114/58; TEMP 97.1; O2SAT 95
[2023-11-23 15:36] LABS: ABG BASE EXCESS 1.2 (-2.0-2.0); ABG HCO3 26.9 MMOL/L (22.0-26.0); ABG O2 SATURATION 97.4 % (95.0-99.0); ABG PARTIAL PRESSURE CO2 46.9 mmHg (35.0-45.0); ABG PARTIAL PRESSURE O2 96.1 mmHg (75.0-100.0); ABG STANDARD HCO3 25.6 MMOL/L. (22.0-26.0); ABG TOTAL CO2 28.3 MMOL/L (23.0-31.0); ABG pH (ARTERIAL) 7.376 UNITS (7.350-7.450)
[2023-11-23 19:20] VITALS: BP 115/58; TEMP 98.4; O2SAT 97
[2023-11-23] MEDS: DULoxetine 30MG CAPSULE (CYMBALTA) PO SCH (20:03)
[2023-11-23] MEDS: amLODIPine 5 MG TAB PO SCH (20:04)
[2023-11-23] MEDS: cefTRIAXone SOD 2 GM in D5W MINI-BAG PLUS 50 ML IV SCH (21:04)
[2023-11-23] MEDS ORDERED: cefTRIAXone SOD 1 GM in D5W MINI-BAG PLUS 50 ML IV SCH (22:00)
[2023-11-24 03:20] VITALS: BP 116/58; TEMP 98.4; O2SAT 96
[2023-11-24 12:00] VITALS: BP 148/63; TEMP 97.3; O2SAT 94
[2023-11-24 15:37] LABS: BASO % 0.3 % (0.0-1.0); EOS # 0.1 10^3/uL (0.0-0.5); EOS % 0.8 % (0.0-3.0); HEMOGLOBIN 11.5 g/dl (12.0-15.5); LYMPH % 7.4 % (24.0-44.0); MEAN CORPUSCULAR HGB CONC 31.1 g/dl (32.0-36.5); MEAN CORPUSCULAR VOLUME 96.6 fl (80.0-96.0); MONO # 0.7 10^3/uL (0.0-0.8); MONO % 5.5 % (2.0-8.0); NEUTROPHILS # 11.2 10^3/uL (1.5-8.5); NEUTROPHILS % 85.1 % (36.0-66.0); PLATELET COUNT, AUTOMATED 189 10^3/uL (150-450); RED BLOOD COUNT 3.83 10^6/uL (4.00-5.40); WHITE BLOOD COUNT 13.2 10^3/uL (4.0-10.0)
[2023-11-24 16:09] LABS: CALCIUM LEVEL 8.7 MG/DL (8.3-10.6); CREATININE FOR GFR 0.96 MG/DL (0.55-1.30); GLOMERULAR FILTRATION RATE 59.7 (>39); MAGNESIUM LEVEL 2.1 MG/DL (1.8-2.4); POTASSIUM SERUM 3.9 MMOL/L (3.5-5.1)
[2023-11-24 20:00] VITALS: BP 109/46; TEMP 97.5; O2SAT 97
[2023-11-24] MEDS: RAMELTEON 8 MG TAB (ROZEREM) PO PRN (20:20)
[2023-11-25] MEDS: NORCO, ANEXSIA 5/325MG TABLET (HYDROcodone/ACETAMINOPHEN) PO ONE (01:42)
[2023-11-25 04:00] VITALS: BP 104/57; TEMP 97; O2SAT 97
[2023-11-25 05:56] LABS: BASO % 0.2 % (0.0-1.0); EOS # 0.1 10^3/uL (0.0-0.5); HEMATOCRIT 32.1 % (36.0-47.0); HEMOGLOBIN 9.8 g/dl (12.0-15.5); LYMPH % 7.4 % (24.0-44.0); MEAN CORPUSCULAR HEMOGLOBIN 29.5 pg (27.0-33.0); MEAN CORPUSCULAR HGB CONC 30.5 g/dl (32.0-36.5); MEAN CORPUSCULAR VOLUME 96.7 fl (80.0-96.0); MONO # 0.9 10^3/uL (0.0-0.8); MONO % 6.9 % (2.0-8.0); NEUTROPHILS # 10.8 10^3/uL (1.5-8.5); NEUTROPHILS % 83.3 % (36.0-66.0); PLATELET COUNT, AUTOMATED 219 10^3/uL (150-450); RED BLOOD COUNT 3.32 10^6/uL (4.00-5.40)
[2023-11-25 06:11] LABS: C REACTIVE PROTEIN QUANTITATIV 27.3 MG/DL (<1.0)
[2023-11-25 06:13] LABS: CALCIUM LEVEL 8.8 MG/DL (8.3-10.6); CREATININE FOR GFR 0.99 MG/DL (0.55-1.30); GLOMERULAR FILTRATION RATE 57.6 (>39); POTASSIUM SERUM 3.6 MMOL/L (3.5-5.1)
[2023-11-25] MEDS: NS 500 ML IV ONE (09:54)
[2023-11-25 12:00] VITALS: BP 113/62; TEMP 97.9; O2SAT 97
[2023-11-25] MEDS: NS 1,000 ML IV SCH (12:07)
[2023-11-25 15:03] LABS: PROCALCITONIN 1.6 ng/ml
[2023-11-25] MEDS: POTASSIUM CHLORIDE 10MEQ SR TABLET PO SCH (15:21)
[2023-11-25 19:50] VITALS: BP 114/60; TEMP 98.2; O2SAT 97
[2023-11-26 04:00] VITALS: BP 115/61; TEMP 97.9; O2SAT 96
[2023-11-26 07:20] LABS: BASO % 0.3 % (0.0-1.0); EOS # 0.1 10^3/uL (0.0-0.5); EOS % 1.2 % (0.0-3.0); HEMATOCRIT 30.7 % (36.0-47.0); HEMOGLOBIN 9.6 g/dl (12.0-15.5); LYMPH # 0.8 10^3/uL (1.5-5.0); LYMPH % 6.7 % (24.0-44.0); MEAN CORPUSCULAR HGB CONC 31.3 g/dl (32.0-36.5); MEAN CORPUSCULAR VOLUME 95.9 fl (80.0-96.0); MONO # 0.8 10^3/uL (0.0-0.8); MONO % 7.2 % (2.0-8.0); NEUTROPHILS # 9.7 10^3/uL (1.5-8.5); NEUTROPHILS % 83.9 % (36.0-66.0); PLATELET COUNT, AUTOMATED 241 10^3/uL (150-450); WHITE BLOOD COUNT 11.6 10^3/uL (4.0-10.0)
[2023-11-26 07:48] LABS: BLOOD UREA NITROGEN 26 MG/DL (9-23); CALCIUM LEVEL 8.4 MG/DL (8.3-10.6); CARBON DIOXIDE LEVEL 29 MMOL/L (20-31); CHLORIDE LEVEL 103 MMOL/L (98-107); CREATININE FOR GFR 0.67 MG/DL (0.55-1.30); GLOMERULAR FILTRATION RATE > 60.0 (>39); GLUCOSE, FASTING 149 MG/DL (74-106); MAGNESIUM LEVEL 1.9 MG/DL (1.8-2.4); POTASSIUM SERUM 4.2 MMOL/L (3.5-5.1); SODIUM LEVEL 136 MMOL/L (136-145)
[2023-11-26 12:00] VITALS: BP 118/60; TEMP 97.3; O2SAT 98
[2023-11-26] MEDS: PERCOCET 5MG/325MG TAB PO PRN (13:30)
[2023-11-26 20:44] VITALS: BP 132/66; TEMP 98.1; O2SAT 98
[2023-11-27] MEDS: HYDROMORPHONE HCL 0.5 MG/ 0.5 ML SYRINGE IV ONE (02:20)
[2023-11-27 04:00] VITALS: BP 131/66; TEMP 97.5; O2SAT 97
[2023-11-27 06:24] LABS: BASO % 0.2 % (0.0-1.0); EOS # 0.1 10^3/uL (0.0-0.5); HEMATOCRIT 31.2 % (36.0-47.0); HEMOGLOBIN 9.4 g/dl (12.0-15.5); LYMPH # 1.3 10^3/uL (1.5-5.0); LYMPH % 10.8 % (24.0-44.0); MEAN CORPUSCULAR HEMOGLOBIN 29.9 pg (27.0-33.0); MEAN CORPUSCULAR HGB CONC 30.1 g/dl (32.0-36.5); MEAN CORPUSCULAR VOLUME 99.4 fl (80.0-96.0); MONO % 8.1 % (2.0-8.0); NEUTROPHILS # 9.7 10^3/uL (1.5-8.5); NEUTROPHILS % 79.2 % (36.0-66.0); PLATELET COUNT, AUTOMATED 299 10^3/uL (150-450); RED BLOOD COUNT 3.14 10^6/uL (4.00-5.40); WHITE BLOOD COUNT 12.3 10^3/uL (4.0-10.0)
[2023-11-27 07:06] LABS: BLOOD UREA NITROGEN 16 MG/DL (9-23); CALCIUM LEVEL 8.9 MG/DL (8.3-10.6); CARBON DIOXIDE LEVEL 29 MMOL/L (20-31); CHLORIDE LEVEL 105 MMOL/L (98-107); CREATININE FOR GFR 0.56 MG/DL (0.55-1.30); GLOMERULAR FILTRATION RATE > 60.0 (>39); GLUCOSE, FASTING 137 MG/DL (74-106); MAGNESIUM LEVEL 1.9 MG/DL (1.8-2.4); POTASSIUM SERUM 4.9 MMOL/L (3.5-5.1); SODIUM LEVEL 138 MMOL/L (136-145)
[2023-11-27 12:00] VITALS: BP 129/67; TEMP 97; O2SAT 98
[2023-11-27 20:00] VITALS: BP 126/62; TEMP 97.7; O2SAT 96
[2023-11-28 04:00] VITALS: BP 132/73; TEMP 97.9; O2SAT 95
[2023-11-28 06:19] LABS: BASO % 0.3 % (0.0-1.0); EOS # 0.1 10^3/uL (0.0-0.5); HEMATOCRIT 30.3 % (36.0-47.0); HEMOGLOBIN 9.2 g/dl (12.0-15.5); LYMPH # 1.3 10^3/uL (1.5-5.0); LYMPH % 10.9 % (24.0-44.0); MEAN CORPUSCULAR HEMOGLOBIN 29.8 pg (27.0-33.0); MEAN CORPUSCULAR HGB CONC 30.4 g/dl (32.0-36.5); MEAN CORPUSCULAR VOLUME 98.1 fl (80.0-96.0); MONO # 1.1 10^3/uL (0.0-0.8); MONO % 9.5 % (2.0-8.0); NEUTROPHILS # 8.9 10^3/uL (1.5-8.5); NEUTROPHILS % 76.9 % (36.0-66.0); PLATELET COUNT, AUTOMATED 308 10^3/uL (150-450); RED BLOOD COUNT 3.09 10^6/uL (4.00-5.40); WHITE BLOOD COUNT 11.5 10^3/uL (4.0-10.0)
[2023-11-28 06:39] LABS: BLOOD UREA NITROGEN 11 MG/DL (9-23); CARBON DIOXIDE LEVEL 30 MMOL/L (20-31); CHLORIDE LEVEL 107 MMOL/L (98-107); GLOMERULAR FILTRATION RATE > 60.0 (>39); GLUCOSE, FASTING 139 MG/DL (74-106); MAGNESIUM LEVEL 1.7 MG/DL (1.8-2.4); POTASSIUM SERUM 5.2 MMOL/L (3.5-5.1); SODIUM LEVEL 140 MMOL/L (136-145)
[2023-11-28] MEDS: MAG SULF 1GM/100ML (MAG RUN) 1 GM in IV 1 EA IV ONE (09:02)
[2023-11-28 11:14] VITALS: BP 123/67; TEMP 97.9; O2SAT 96
[2023-11-28] MEDS: FUROSEMIDE 40MG/4ML VIAL IV SCH (11:44)
[2023-11-28 12:37] VITALS: BP 123/65; TEMP 97.3; O2SAT 96
[2023-11-28] MEDS: IPRATROPIUM 0.5MG/ALBUTEROL 2.5MG INH SOL UD 3ML (DUONEB) NEB SCH (13:43)
[2023-11-28] MEDS: BUDESONIDE 0.5 MG/2 ML INHALATION SUSPENSION NEB SCH (19:48)
[2023-11-28 20:00] VITALS: BP 127/66; TEMP 98.1; O2SAT 95
[2023-11-29 04:00] VITALS: BP 121/62; TEMP 98.1; O2SAT 94
[2023-11-29 05:58] LABS: BASO % 0.3 % (0.0-1.0); EOS # 0.1 10^3/uL (0.0-0.5); EOS % 1.1 % (0.0-3.0); HEMATOCRIT 28.2 % (36.0-47.0); HEMOGLOBIN 8.6 g/dl (12.0-15.5); LYMPH % 8.7 % (24.0-44.0); MEAN CORPUSCULAR HEMOGLOBIN 29.7 pg (27.0-33.0); MEAN CORPUSCULAR HGB CONC 30.5 g/dl (32.0-36.5); MEAN CORPUSCULAR VOLUME 97.2 fl (80.0-96.0); MONO # 1.1 10^3/uL (0.0-0.8); MONO % 9.4 % (2.0-8.0); NEUTROPHILS # 9.1 10^3/uL (1.5-8.5); NEUTROPHILS % 78.9 % (36.0-66.0); PLATELET COUNT, AUTOMATED 349 10^3/uL (150-450); WHITE BLOOD COUNT 11.5 10^3/uL (4.0-10.0)
[2023-11-29 06:31] LABS: BLOOD UREA NITROGEN 13 MG/DL (9-23); CALCIUM LEVEL 8.5 MG/DL (8.3-10.6); CARBON DIOXIDE LEVEL 32 MMOL/L (20-31); CHLORIDE LEVEL 100 MMOL/L (98-107); CREATININE FOR GFR 0.67 MG/DL (0.55-1.30); GLOMERULAR FILTRATION RATE > 60.0 (>39); GLUCOSE, FASTING 190 MG/DL (74-106); MAGNESIUM LEVEL 1.6 MG/DL (1.8-2.4); POTASSIUM SERUM 4.3 MMOL/L (3.5-5.1); SODIUM LEVEL 139 MMOL/L (136-145)
[2023-11-29] MEDS: MAG SULF 1GM/100ML (MAG RUN) 1 GM in IV 1 EA IV SCH (09:15)
[2023-11-29] MEDS: FUROSEMIDE 40MG/4ML VIAL IV SCH (09:16)
[2023-11-29] MEDS: CYANOCOBALAMIN 500 MCG TAB PO SCH (09:16)
[2023-11-29] MEDS: PERCOCET 5MG/325MG TAB PO PRN (09:20)
[2023-11-29 12:00] VITALS: BP 125/61; TEMP 97.9; O2SAT 91
[2023-11-29] MEDS: guaiFENesin/CODEINE SYRUP 5 ML UDC PO PRN (16:16)
[2023-11-29 21:11] VITALS: BP 127/54; TEMP 98.2; O2SAT 95
[2023-11-30 04:51] VITALS: BP 127/55; TEMP 98.1; O2SAT 91
[2023-11-30 06:14] LABS: BASO % 0.3 % (0.0-1.0); EOS # 0.2 10^3/uL (0.0-0.5); EOS % 1.5 % (0.0-3.0); HEMATOCRIT 29.1 % (36.0-47.0); LYMPH # 1.2 10^3/uL (1.5-5.0); LYMPH % 10.9 % (24.0-44.0); MEAN CORPUSCULAR HEMOGLOBIN 29.8 pg (27.0-33.0); MEAN CORPUSCULAR HGB CONC 30.9 g/dl (32.0-36.5); MEAN CORPUSCULAR VOLUME 96.4 fl (80.0-96.0); MONO % 9.4 % (2.0-8.0); NEUTROPHILS % 75.8 % (36.0-66.0); PLATELET COUNT, AUTOMATED 389 10^3/uL (150-450); RED BLOOD COUNT 3.02 10^6/uL (4.00-5.40); WHITE BLOOD COUNT 10.6 10^3/uL (4.0-10.0)
[2023-11-30 06:47] LABS: BLOOD UREA NITROGEN 10 MG/DL (9-23); CALCIUM LEVEL 8.3 MG/DL (8.3-10.6); CARBON DIOXIDE LEVEL 40 MMOL/L (20-31); CHLORIDE LEVEL 95 MMOL/L (98-107); CREATININE FOR GFR 0.71 MG/DL (0.55-1.30); GLOMERULAR FILTRATION RATE > 60.0 (>39); GLUCOSE, FASTING 138 MG/DL (74-106); MAGNESIUM LEVEL 1.7 MG/DL (1.8-2.4); POTASSIUM SERUM 4.1 MMOL/L (3.5-5.1); SODIUM LEVEL 138 MMOL/L (136-145)
[2023-11-30] MEDS: MAG SULF 1GM/100ML (MAG RUN) 1 GM in IV 1 EA IV ONE (09:31)
[2023-11-30] MEDS: MAGNESIUM OXIDE 400MG TAB (MAG-OX) PO SCH (09:32)
[2023-11-30] MEDS ORDERED: LIDOCAINE 1% MDV 20ML VIAL As Ordered ONE (10:34)
[2023-11-30 12:00] VITALS: BP 117/58; TEMP 97; O2SAT 96
[2023-11-30] MEDS: FUROSEMIDE 40 MG TAB PO SCH (16:37)
[2023-11-30 19:33] VITALS: BP 140/61; TEMP 98.3; O2SAT 100
[2023-11-30] MEDS: APIXABAN 5 MG TAB (ELIQUIS) PO SCH (20:32)
[2023-12-01 03:38] VITALS: BP 136/62; TEMP 97.7; O2SAT 97
[2023-12-01 06:46] LABS: BASO % 0.4 % (0.0-1.0); EOS # 0.2 10^3/uL (0.0-0.5); EOS % 1.6 % (0.0-3.0); HEMATOCRIT 31.2 % (36.0-47.0); HEMOGLOBIN 9.4 g/dl (12.0-15.5); LYMPH # 1.5 10^3/uL (1.5-5.0); LYMPH % 14.2 % (24.0-44.0); MEAN CORPUSCULAR HEMOGLOBIN 29.4 pg (27.0-33.0); MEAN CORPUSCULAR HGB CONC 30.1 g/dl (32.0-36.5); MEAN CORPUSCULAR VOLUME 97.5 fl (80.0-96.0); MONO # 0.8 10^3/uL (0.0-0.8); MONO % 7.8 % (2.0-8.0); NEUTROPHILS # 7.6 10^3/uL (1.5-8.5); NEUTROPHILS % 74.6 % (36.0-66.0); PLATELET COUNT, AUTOMATED 390 10^3/uL (150-450); WHITE BLOOD COUNT 10.2 10^3/uL (4.0-10.0)
[2023-12-01 07:11] LABS: BLOOD UREA NITROGEN 10 MG/DL (9-23); CALCIUM LEVEL 8.6 MG/DL (8.3-10.6); CARBON DIOXIDE LEVEL > 40.0 MMOL/L (20-31); CHLORIDE LEVEL 94 MMOL/L (98-107); CREATININE FOR GFR 0.68 MG/DL (0.55-1.30); GLOMERULAR FILTRATION RATE > 60.0 (>39); GLUCOSE, FASTING 110 MG/DL (74-106); SODIUM LEVEL 140 MMOL/L (136-145)
[2023-12-01 12:00] VITALS: BP 121/54; TEMP 97.5; O2SAT 96
[2023-12-01] MEDS ORDERED: CIPROFLOXACIN 500MG TABLET PO SCH (18:00)
[2023-12-01 20:00] VITALS: BP 129/63; TEMP 98.1; O2SAT 97
[2023-12-01] MEDS: LevoFLOXacin 750 MG TABLET PO SCH (20:52)
[2023-12-02 04:00] VITALS: BP 128/65; TEMP 97.7; O2SAT 95
[2023-12-02 08:09] LABS: HEMATOCRIT 32.1 % (36.0-47.0); HEMOGLOBIN 9.6 g/dl (12.0-15.5); MEAN CORPUSCULAR HEMOGLOBIN 29.4 pg (27.0-33.0); MEAN CORPUSCULAR HGB CONC 29.9 g/dl (32.0-36.5); MEAN CORPUSCULAR VOLUME 98.5 fl (80.0-96.0); PLATELET COUNT, AUTOMATED 405 10^3/uL (150-450); RED BLOOD COUNT 3.26 10^6/uL (4.00-5.40); WHITE BLOOD COUNT 9.3 10^3/uL (4.0-10.0)
[2023-12-02 08:36] LABS: BLOOD UREA NITROGEN 11 MG/DL (9-23); CALCIUM LEVEL 8.7 MG/DL (8.3-10.6); CARBON DIOXIDE LEVEL > 40.0 MMOL/L (20-31); CHLORIDE LEVEL 93 MMOL/L (98-107); CREATININE FOR GFR 0.62 MG/DL (0.55-1.30); GLOMERULAR FILTRATION RATE > 60.0 (>39); GLUCOSE, FASTING 137 MG/DL (74-106); POTASSIUM SERUM 4.2 MMOL/L (3.5-5.1); SODIUM LEVEL 138 MMOL/L (136-145)
[2023-12-02 08:47] VITALS: BP 128/65
[2023-12-02] MEDS ORDERED: LEVO1TAB40 PO (11:12)
[2023-12-02 12:15] VITALS: BP 90/60; TEMP 97.7; O2SAT 98
== END 2023-12-02 14:31 | disposition home health service (06) | DRG 690 ==
LOC: M ED 17:51 → M ED INP 23:00 → M MSPAV 11-23 02:04
PROVIDERS: ADMIT Family Medicine; ATTEND Internal Medicine
PROC: 0T913ZX Drainage of Left Kidney, Percutaneous Approach, Diagnostic (ICD-10-PCS; principal; 2023-11-30 11:00)
DX: N10 Acute pyelonephritis (principal); K83.09 Other cholangitis; J96.11 Chronic respiratory failure with hypoxia; B96.20 Unspecified Escherichia coli [E. coli] as the cause of diseases classified elsewhere; J44.9 Chronic obstructive pulmonary disease, unspecified; I48.91 Unspecified atrial fibrillation; I10 Essential (primary) hypertension; E78.5 Hyperlipidemia, unspecified; E83.42 Hypomagnesemia; N28.1 Cyst of kidney, acquired; E87.6 Hypokalemia; J45.909 Unspecified asthma, uncomplicated; D64.9 Anemia, unspecified; M19.90 Unspecified osteoarthritis, unspecified site; F32.A Depression, unspecified; F41.9 Anxiety disorder, unspecified; Z95.0 Presence of cardiac pacemaker; Z87.891 Personal history of nicotine dependence; Z79.01 Long term (current) use of anticoagulants; Z79.899 Other long term (current) drug therapy; Z88.0 Allergy status to penicillin; Z88.1 Allergy status to other antibiotic agents; Z88.8 Allergy status to other drugs, medicaments and biological substances; Z86.73 Personal history of transient ischemic attack (TIA), and cerebral infarction without residual deficits; Z99.81 Dependence on supplemental oxygen

== ENCOUNTER → 2023-12-08 | Outpatient (CLI) | payer MEDICARE, MEDICAID ==
[~2023-12-08] MED LIST changes: +ACET650T61 PO; +ALBU8.5H PO; +AMLO1TAB24 PO; +BREO1INH3 PO; +DULO1CAP6 PO; +FLUC150T9 PO; +ISOS1TAB35 PO; +ISOVUE-370 76% 100ML VIAL As Ordered ONE; +LEVO1TAB40 PO
== END ==
LOC: M RAD 13:02
PROVIDERS: ATTEND Internal Medicine
DX: Z86.73 Personal history of transient ischemic attack (TIA), and cerebral infarction without residual deficits (principal); R29.818 Other symptoms and signs involving the nervous system
CPT/HCPCS: 70450; 70496; 70498; Q9967

== ENCOUNTER → 2024-02-15 | Outpatient (CLI) | payer MEDICARE, MEDICAID ==
[~2024-02-15] MED LIST changes: -ISOVUE-370 76% 100ML VIAL As Ordered ONE
[2024-02-15 16:59] LABS: BLOOD UREA NITROGEN 12 MG/DL (9-23); CALCIUM LEVEL 9.2 MG/DL (8.3-10.6); CARBON DIOXIDE LEVEL 34 MMOL/L (20-31); CHLORIDE LEVEL 99 MMOL/L (98-107); CREATININE FOR GFR 0.73 MG/DL (0.55-1.30); GLOMERULAR FILTRATION RATE > 60.0 (>39); GLUCOSE, FASTING 87 MG/DL (74-106); POTASSIUM SERUM 3.8 MMOL/L (3.5-5.1); SODIUM LEVEL 139 MMOL/L (136-145)
== END ==
LOC: M WUC 13:33
PROVIDERS: ATTEND Urology
DX: N25.1 Nephrogenic diabetes insipidus (principal)

== ENCOUNTER → 2024-02-17 | Outpatient (CLI) | payer MEDICARE, MEDICAID ==
[~2024-02-17] MED LIST changes: +ISOVUE-370 76% 100ML VIAL ONE
== END ==
LOC: M PLAIMG 12:20
PROVIDERS: ATTEND Urology
DX: N28.1 Cyst of kidney, acquired (principal)
CPT/HCPCS: 74170; Q9967

== ENCOUNTER → 2024-05-18 | Outpatient (REF) | payer MEDICARE, MEDICAID ==
[~2024-05-18] MED LIST changes: -ISOVUE-370 76% 100ML VIAL ONE; +NYST1POW3 TOP; -NYST1POW9 TOP
[2024-05-18 17:42] LABS: APPEARANCE, URINE CLOUDY (CLEAR); BACTERIA, URINE AUTO 1+ (NEGATIVE); BILIRUBIN, URINE AUTO NEGATIVE (NEGATIVE); BLOOD, URINE BLOOD 2+ (NEGATIVE); COLOR, URINE AMBER (YELLOW); GLUCOSE, URINE (UA) AUTO 3+ mg/dL (NEGATIVE); KETONE, URINE AUTO TRACE mg/dL (NEGATIVE); LEUKOCYTE ESTERASE, URINE AUTO 2+ (NEGATIVE); NITRITE, URINE AUTO NEGATIVE (NEGATIVE); PROTEIN, URINE AUTO 3+ mg/dL (NEGATIVE); RBC, URINE AUTO TNTC /HPF (0-3); SPECIFIC GRAVITY URINE AUTO 1.022 (1.002-1.035); SQUAMOUS EPITHELIAL CELL UR AU 5 /HPF (0-6); UROBILINOGEN, URINE AUTO 0.2 mg/dL (0.0-2.0); WBC, URINE AUTO TNTC /HPF (0-3)
== END ==
LOC: M SMT 16:55
PROVIDERS: ATTEND Urology
DX: N39.0 Urinary tract infection, site not specified (principal)

== ENCOUNTER → 2024-08-03 | Outpatient (CLI) | payer MEDICARE, MEDICAID ==
[~2024-08-03] MED LIST changes: +ISOVUE-370 76% 100ML VIAL ONE
== END ==
LOC: M PLAIMG 12:48
PROVIDERS: ATTEND Urology
DX: D30.02 Benign neoplasm of left kidney (principal); N28.1 Cyst of kidney, acquired
CPT/HCPCS: 74170; Q9967

== ENCOUNTER → 2024-09-01 | Outpatient (CLI) | payer MEDICARE, MEDICAID ==
[~2024-09-01] MED LIST changes: -ISOVUE-370 76% 100ML VIAL ONE
== END ==
LOC: M RAD 08:24
PROVIDERS: ATTEND Internal Medicine Gastroenterology
DX: K74.3 Primary biliary cirrhosis (principal)

== ENCOUNTER → 2024-09-13 | Outpatient (REF) | payer MEDICARE, MEDICAID ==
[2024-09-13 13:31] LABS: APPEARANCE, URINE CLEAR (CLEAR); BACTERIA, URINE AUTO NEGATIVE (NEGATIVE); BILIRUBIN, URINE AUTO NEGATIVE (NEGATIVE); BLOOD, URINE BLOOD NEGATIVE (NEGATIVE); COLOR, URINE STRAW (YELLOW); GLUCOSE, URINE (UA) AUTO 3+ mg/dL (NEGATIVE); KETONE, URINE AUTO NEGATIVE (NEGATIVE); LEUKOCYTE ESTERASE, URINE AUTO NEGATIVE (NEGATIVE); NITRITE, URINE AUTO NEGATIVE (NEGATIVE); PROTEIN, URINE AUTO NEGATIVE (NEGATIVE); RBC, URINE AUTO 1 /HPF (0-3); SPECIFIC GRAVITY URINE AUTO 1.003 (1.002-1.035); SQUAMOUS EPITHELIAL CELL UR AU 0 /HPF (0-6); UROBILINOGEN, URINE AUTO 0.2 mg/dL (0.0-2.0); WBC, URINE AUTO 0 /HPF (0-3)
== END ==
LOC: M SMT 12:52
PROVIDERS: ATTEND Urology
DX: N39.0 Urinary tract infection, site not specified (principal)

== ENCOUNTER → 2024-09-13 | Outpatient (CLI) | payer MEDICARE, MEDICAID ==
[2024-09-13 13:51] LABS: CALCIUM LEVEL 9.6 MG/DL (8.3-10.6); CREATININE FOR GFR 0.74 MG/DL (0.55-1.30); GLOMERULAR FILTRATION RATE 81.7 (>32); POTASSIUM SERUM 3.8 MMOL/L (3.5-5.1)
== END ==
LOC: M WUC 10:58
PROVIDERS: ATTEND Internal Medicine Cardiovascular Disease
DX: I50.32 Chronic diastolic (congestive) heart failure (principal)

== ENCOUNTER → 2024-09-13 | Outpatient (CLI) | payer MEDICARE, MEDICAID ==
[2024-09-13 13:13] LABS: BASO # 0.1 10^3/uL (0.0-0.2); BASO % 1.1 % (0.0-1.0); EOS # 0.1 10^3/uL (0.0-0.5); EOS % 2.4 % (0.0-3.0); HEMATOCRIT 38.8 % (36.0-47.0); HEMOGLOBIN 11.1 g/dl (12.0-15.5); LYMPH # 1.6 10^3/uL (1.5-5.0); LYMPH % 34.5 % (24.0-44.0); MEAN CORPUSCULAR HEMOGLOBIN 24.3 pg (27.0-33.0); MEAN CORPUSCULAR HGB CONC 28.6 g/dl (32.0-36.5); MEAN CORPUSCULAR VOLUME 85.1 fl (80.0-96.0); MONO # 0.5 10^3/uL (0.0-0.8); MONO % 10.9 % (2.0-8.0); NEUTROPHILS # 2.4 10^3/uL (1.5-8.5); NEUTROPHILS % 50.9 % (36.0-66.0); PLATELET COUNT, AUTOMATED 330 10^3/uL (150-450); RED BLOOD COUNT 4.56 10^6/uL (4.00-5.40); WHITE BLOOD COUNT 4.7 10^3/uL (4.0-10.0)
[2024-09-13 13:49] LABS: ALBUMIN 4.3 G/DL (3.2-5.2); BILIRUBIN,TOTAL 0.7 MG/DL (0.3-1.2); CALCIUM LEVEL 9.3 MG/DL (8.3-10.6); CREATININE FOR GFR 0.74 MG/DL (0.55-1.30); GLOMERULAR FILTRATION RATE 81.7 (>32); POTASSIUM SERUM 3.8 MMOL/L (3.5-5.1); TOTAL PROTEIN 7.6 G/DL (5.7-8.2)
== END ==
LOC: M WUC 11:07
PROVIDERS: ATTEND Internal Medicine Gastroenterology
DX: K74.3 Primary biliary cirrhosis (principal)

== ENCOUNTER → 2024-09-13 | Outpatient (CLI) | payer MEDICARE, MEDICAID ==
[2024-09-13 13:48] LABS: CALCIUM LEVEL 9.4 MG/DL (8.3-10.6); CREATININE FOR GFR 0.73 MG/DL (0.55-1.30); GLOMERULAR FILTRATION RATE 83.1 (>32); POTASSIUM SERUM 3.9 MMOL/L (3.5-5.1)
== END ==
LOC: M WUC 11:00
PROVIDERS: ATTEND Urology
DX: N28.1 Cyst of kidney, acquired (principal); D30.02 Benign neoplasm of left kidney

== ENCOUNTER → 2025-01-09 | Outpatient (CLI) | payer MEDICARE, MEDICAID ==
[~2025-01-09] MED LIST changes: -BUPR-597 PO; +BUPR-766 PO
== END ==
LOC: M WHC 11:11
PROVIDERS: ATTEND Internal Medicine Medical Oncology
DX: M54.2 Cervicalgia (principal); C50.919 Malignant neoplasm of unspecified site of unspecified female breast; M85.89 Other specified disorders of bone density and structure, multiple sites

== ENCOUNTER → 2025-03-15 | Outpatient (CLI) | payer MEDICARE, MEDICAID ==
[~2025-03-15] MED LIST changes: +LETR2.5T2 PO
== END ==
LOC: M RAD 10:31
PROVIDERS: ATTEND Internal Medicine Medical Oncology
DX: C50.919 Malignant neoplasm of unspecified site of unspecified female breast (principal); M54.2 Cervicalgia
CPT/HCPCS: 78306; A9503

== ENCOUNTER → 2025-03-17 | Outpatient (CLI) | payer MEDICARE, MEDICAID | LOC: M ONCR 14:12 | PROVIDERS: ATTEND General Practice | DX: C50.412 Malignant neoplasm of upper-outer quadrant of left female breast (principal); Z17.1 Estrogen receptor negative status [ER-]; Z17.22 Progesterone receptor negative status; Z17.31 Human epidermal growth factor receptor 2 positive status; Z98.890 Other specified postprocedural states; Z86.73 Personal history of transient ischemic attack (TIA), and cerebral infarction without residual deficits; Z99.81 Dependence on supplemental oxygen; Z98.51 Tubal ligation status; Z80.1 Family history of malignant neoplasm of trachea, bronchus and lung; Z80.3 Family history of malignant neoplasm of breast; Z80.51 Family history of malignant neoplasm of kidney; Z87.891 Personal history of nicotine dependence; Z88.0 Allergy status to penicillin; Z88.1 Allergy status to other antibiotic agents; Z88.8 Allergy status to other drugs, medicaments and biological substances; Z79.01 Long term (current) use of anticoagulants; Z79.51 Long term (current) use of inhaled steroids; Z79.811 Long term (current) use of aromatase inhibitors; Z79.84 Long term (current) use of oral hypoglycemic drugs; Z79.899 Other long term (current) drug therapy | CPT/HCPCS: G0463 ×2 ==

== ENCOUNTER 2025-03-27 10:50 | Outpatient (RCR) | payer MEDICARE, MEDICAID | END 2025-03-31 | LOC: M ONCR 10:50 | PROVIDERS: ATTEND General Practice | DX: Z51.0 Encounter for antineoplastic radiation therapy (principal); C50.412 Malignant neoplasm of upper-outer quadrant of left female breast ==

== ENCOUNTER 2025-04-26 09:20 | Outpatient (RCR) | payer MEDICARE, MEDICAID ==
[~2025-04-26 09:20] MED LIST changes: -BACTDSTA PO; +SULF-8 PO
[2025-05-01] MEDS ORDERED: TRIA1CR80 TOP (10:06)
== END 2025-04-30 ==
LOC: M ONCR 09:20
PROVIDERS: ATTEND General Practice
DX: Z51.0 Encounter for antineoplastic radiation therapy (principal); C50.412 Malignant neoplasm of upper-outer quadrant of left female breast

== ENCOUNTER 2025-05-09 09:15 | Outpatient (RCR) | payer MEDICARE, MEDICAID ==
[~2025-05-09 09:15] MED LIST changes: +TRIA1CR80 TOP
== END 2025-05-31 ==
LOC: M ONCR 09:15
PROVIDERS: ATTEND General Practice
DX: Z51.0 Encounter for antineoplastic radiation therapy (principal); C50.412 Malignant neoplasm of upper-outer quadrant of left female breast

== ENCOUNTER → 2025-05-15 | Outpatient (CLI) | payer MEDICARE, MEDICAID | LOC: M PLAIMG 12:43 | PROVIDERS: ATTEND Internal Medicine | DX: R51.9 Headache, unspecified (principal) ==